=== PATIENT | male | born 1960 | race Caucasian/White ===

== ENCOUNTER 2019-04-11 20:40 | Inpatient (IN) | payer MEDICARE, OTHER ==
[2019-04-11 21:55] VITALS: BP 117/76
[2019-04-12] MEDS ORDERED: Magnesium Hydroxide (MOM) 30 mL UDC PO PRN (00:32)
[2019-04-12] MEDS ORDERED: Maalox 30 mL Cup PO PRN (00:32)
[2019-04-12 06:47] LABS: CHOLESTEROL 115 mg/dL (<200); HDL -HIGH DENSITY LIPOPROTEIN 36 mg/dL (23-92); TRIGLYCERIDES 53 mg/dL (<150)
[2019-04-12] MEDS: Multivitamin Tab PO SCH (09:23)
[2019-04-12] MEDS: Haloperidol Lactate Oral sol. 2 mg/mL Udc PO SCH (16:27)
[2019-04-13] MEDS: Multivitamin Tab PO SCH (09:06)
[2019-04-13] MEDS: Haloperidol Lactate Oral sol. 2 mg/mL Udc PO SCH ×2 (09:07→16:53)
--- NOTE | 2019-04-13 10:05 | History & Physical ---
ADMIT DATE: 04/11/2019 REASON FOR CONSULTATION: ____ medical management at [place]. The patient was admitted to inpatient unit. HISTORY OF PRESENT ILLNESS: This is an unfortunate male, currently homeless and initially admitted at [place] to [facility], the patient was transferred for continued care and treatment. The patient denies chest pain, shortness of breath. PAST MEDICAL HISTORY: As mentioned in the history present illness. PAST SURGICAL HISTORY: Denies surgeries in the past. ALLERGIES: No known drug allergies. MEDICATIONS: The patient is on multivitamins. Denies diabetes, currently now on lithium as well as Ativan. FAMILY HISTORY: Noncontributory. SOCIAL HISTORY: The patient smokes and drinks occasionally. 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 REVIEW OF SYSTEMS: GENERAL: Not complaining of any fever or chills. The patient is weak, having difficulty walking. LUNGS: Negative COPD or asthma, chronic smoker. HEART: Denies hypertension or coronary artery disease. ABDOMEN: No nausea, vomiting, or pain. GENITOURINARY: The patient denies increased frequency or dysuria. NEUROLOGIC: No headache, seizure or syncope. PSYCHIATRIC: As above. PHYSICAL EXAMINATION: VITAL SIGNS: Blood pressure 170/73, respiratory rate 18, pulse 80, temperature 97.8 Elderly male, appears older. NECK: Supple. No mass. LUNGS: Equal breath sounds, otherwise clear to auscultation. HEART: Regular rate and rhythm without appreciable murmurs. ABDOMEN: Soft, nontender. Positive bowel sounds. EXTREMITIES: Without cyanosis. Positive excoriation atrophy. NEUROLOGIC: Limited, moving all 4 extremities. Gait not seen. LABORATORY DATA: Triglycerides 53, cholesterol 115, LDL 61, HDL 36. ____ hemoglobin is 11. ASSESSMENT AND PLAN: Dehydration, malnutrition, anemia, renal insufficiency. We will provide the patient adequate nutritional support. The patient ____. The patient may ____ We will continue to follow. [facility]# [id number]
--- NOTE | 2019-04-13 11:48 | Internal Medicine Prog Note ---
Internal Medicine Subjective - Subjective Patient seen and examined:: with staff, chart reviewed Patient is:: awake, verbal, interactive, confused Per staff patient has:: no adverse event, poor appetite Internal Medicine Objective - Results Recent Labs: Laboratory Last Values Triglycerides 53 mg/dL (<150) 04/12/19 06:10 Cholesterol 115 mg/dL (<200) 04/12/19 06:10 LDL Cholesterol Direct 61 mg/dL (75-193) L 04/12/19 06:10 HDL Cholesterol 36 mg/dL (23-92) 04/12/19 06:10 - Physical Exam Vitals and I&O: Vital Signs Temp 97.2 F 04/13/19 06:34 Pulse 64 04/13/19 06:34 Resp 18 04/13/19 06:34 BP 136/77 04/13/19 06:34 Pulse Ox 97 04/13/19 06:34 Intake & Output 04/12/19 04/13/19 04/13/19 18:59 06:59 18:59 Intake Total 650 120 Balance 650 120 Intake: Oral 650 120 Other: # Voids 2 3 Active Medications: Current Medications Acetaminophen (Tylenol) 650 mg PO Q4HR PRN PRN Reason: Mild Pain / Temp above 100 Stop: 06/11/19 00:31 Al Hydrox/Mg Hydrox/Simethicone (Maalox) 30 ml PO Q4HR PRN PRN Reason: GI DISTRESS Stop: 06/11/19 00:31 Ascorbic Acid (Vitamin C) 500 mg PO DAILY CANDELARIO Stop: 06/12/19 08:59 Last Admin: 04/13/19 09:06 Dose: 500 mg Haloperidol Lactate (Haldol) 2 mg PO BID CANDELARIO; Protocol Stop: 06/11/19 16:59 Last Admin: 04/13/19 09:07 Dose: 2 mg [place] Carbonate (Eskalith) 150 mg PO DAILY CANDELARIO; Protocol Stop: 06/11/19 08:59 Last Admin: 04/13/19 09:06 Dose: 150 mg Lorazepam (Ativan) 0.5 mg PO Q4HR PRN; Protocol PRN Reason: Anxiety Stop: 05/12/19 00:49 Magnesium Hydroxide (Milk Of Magnesia) 30 ml PO HS PRN PRN Reason: Constipation Multivitamins/Vitamin C (Theragran) 1 tab PO DAILY CANDELARIO Stop: 06/11/19 08:59 Last Admin: 04/13/19 09:06 Dose: 1 tab Zolpidem Tartrate (Ambien) 5 mg PO HS PRN PRN Reason: Insomnia Stop: 06/11/19 00:49 Last Admin: 04/12/19 20:54 Dose: 5 mg General: demented HEENT: NC/AT, PERRLA, EOMI Neck: Supple, No JVD Lungs: CTAB Cardiovascular: RRR, Normal S1, Normal S2 Abdomen: soft, non-tender, positive bowel sound Extremities: excoriation Neurological: no change Internal Medicine Assmt/Plan - Assessment Assessment: ASSESSMENT AND PLAN: Dehydration, malnutrition, anemia, renal insufficiency. generalized weakness - Plan Plan: PLAN: We will provide the patient adequate nutritional support. will provide hydration, supplements, sypmtomatic care and treatment. We will continue to follow. Nutritional Asmnt/Malnutr-PDOC - Dietary Evaluation Malnutrition Findings (Please click <Entered> for more info): Nutritional Asmnt/Malnutrition Start: 04/12/19 14: 01 Text: Status: Complete Freq: Protocol: Document 04/12/19 14:02 LCHENG (Rec: 04/12/19 14:02 LCHENG [email or web address]) Nutritional Asmnt/Malnutrition Patient General Information Nutritional Screening High Risk Consult Diagnosis psychosis Pertinent Medical Hx/Surgical Hx no H&P as of this time Subjective Information Consult received for poor appetite. But MARIBEL Ruiz reported pt ate well, consumed 75% breakfast this morning. Pt requested strawberry Ensure . Current Diet Order/ Nutrition Support regular Pertinent Medications vit C, theragran Pertinent Labs 04/12 reviewed Nutritional Hx/Data Height 1.78 m Height (Calculated Centimeters) 177.8 Current Weight (lbs) 54.431 kg Weight (Calculated Kilograms) 54.4 Weight (Calculated Grams) 50099.1 [place] Body Weight 166 Body Mass Index (BMI) 17.2 Weight Status Underweight GI Symptoms GI Symptoms None Last BM not indicated Difficult in: None Skin Integrity/Comment: pressure area to reddened sacrume, abrasion to lower left extremity Current %PO Good (75-100%) Estimated Nutritional Goals BEE in Kcals: Using Current wt Calories/Kcals/Kg 27-32 Kcals Calculated 8050-2870 Protein: Using Current wt Protein g/k-1.2 Protein Calculated 55-66 Fluid: ml 1485-1760ml (1ml/kcal) Nutritional Problem 1. Problem Problem underweight Etiology possible inadequate energy intake Signs/Symptoms: BMI 17.2 Intervention/Recommendation Comments 1. Continue with regular diet as ordered. Add Ensure BID ( strawberry flavor). 2. Monitor PO intake, wt, labs and skin integrity 3. F/U as low risk in 7 days Expected Outcomes/Goals Expected Outcomes/Goals 1. PO intake to meet at least 75% of nutritional needs. 2. Wt stability, skin to remain intact, labs to approach WNL.
--- NOTE | 2019-04-13 12:04 | Psychiatric Evaluation ---
DATE OF SERVICE: 04/12/2019 HISTORY OF PRESENT ILLNESS: A 59-year-old male sent over by this clinician from [facility] on a 5150 hold for grave disability. The patient presented there catatonic, not talking, not eating, not taking medications. He did accept IV medications and was started on IV Ativan. Some of his catatonic symptoms improved, he was talking more and his p.o. intake remained very poor. He remained bizarre, psychotic appearing, ruminative and nonsensical, concerns about his ability to function at a lower level of care, now transferred to [facility] after medical clearance. PAST PSYCHIATRIC HISTORY: Likely schizophrenia or bipolar. FAMILY HISTORY: Unclear. SOCIAL HISTORY: Details unclear, but apparently he lives with family. MEDICATIONS: Noted. MENTAL STATUS EXAMINATION: Disheveled, unkempt, staring off into space at times, not really answering any questions, heavily internally preoccupied, thought blocking, unclear SI, unclear HI, unclear content of any psychotic symptoms, poor insight, poor judgment. PROVISIONAL DIAGNOSES: Schizophrenia, rule out bipolar, rule out schizoaffective. MEDICAL: Please see full H and P. ESTIMATED LENGTH OF STAY: 7-10 days. ASSESSMENT: The patient impoverished, very poor p.o. intake, psychotic appearing, minimally interactive, not stable for a lower level of care. PLAN: We will continue medications and make appropriate adjustments. TREATMENT PLAN: Includes group as well as milieu therapy. CONDITIONS FOR DISCHARGE: Improved mood, improved affect, better p.o. intake, control of any psychotic symptoms, safe discharge plan, good psychiatric followup. [facility]# [id number]
--- NOTE | 2019-04-14 00:01 | Progress Notes ---
DATE: 04/13/2019 SUBJECTIVE: The patient remains bizarre, delusional, stating the staff is either coming out or stating staff is not feeding him and that he wants to eat every day, but they are giving him food and feeding him. He does not really take much in and then is making allegations that he is not getting any food, very confused, disoriented, bizarre, collateral from father noting that apparently he was having some negative reaction to lithium in the past, details unclear. We will attempt to reach out to family to try to increase collateral. Ongoing concerns about his p.o. intake. We will continue to monitor for now, continue dosing of Haldol, stop lithium. We will be increasing the dosing of Haldol. The patient is not catatonic, but he is pretty disorganized and nonsensical. Initiate a 14-day hold for grave disability. JOB# [id number]
[2019-04-14] MEDS: Haloperidol Lactate Oral sol. 2 mg/mL Udc PO SCH ×2 (10:14→16:53)
[2019-04-14] MEDS: Multivitamin Tab PO SCH (10:16)
--- NOTE | 2019-04-14 12:36 | Internal Medicine Prog Note ---
Internal Medicine Subjective - Subjective Patient seen and examined:: with staff, chart reviewed Patient is:: awake, verbal, interactive, confused Per staff patient has:: no adverse event, poor appetite Internal Medicine Objective - Results Recent Labs: Laboratory Last Values Triglycerides 53 mg/dL (<150) 04/12/19 06:10 Cholesterol 115 mg/dL (<200) 04/12/19 06:10 LDL Cholesterol Direct 61 mg/dL (75-193) L 04/12/19 06:10 HDL Cholesterol 36 mg/dL (23-92) 04/12/19 06:10 - Physical Exam Vitals and I&O: Vital Signs Temp 97.2 F 04/14/19 06:17 Pulse 64 04/14/19 06:17 Resp 19 04/14/19 06:17 BP 126/75 04/14/19 06:17 Pulse Ox 97 04/14/19 06:17 Intake & Output 04/13/19 04/14/19 04/14/19 18:59 06:59 18:59 Intake Total 800 120 Balance 800 120 Intake: Oral 800 120 Other: # Voids 3 2 # Bowel Movements 0 Active Medications: Current Medications Acetaminophen (Tylenol) 650 mg PO Q4HR PRN PRN Reason: Mild Pain / Temp above 100 Stop: 06/11/19 00:31 Al Hydrox/Mg Hydrox/Simethicone (Maalox) 30 ml PO Q4HR PRN PRN Reason: GI DISTRESS Stop: 06/11/19 00:31 Ascorbic Acid (Vitamin C) 500 mg PO DAILY CANDELARIO Stop: 06/12/19 08:59 Last Admin: 04/14/19 10:14 Dose: 500 mg Haloperidol Lactate (Haldol) 3 mg PO BID CANDELARIO; Protocol Stop: 06/12/19 16:59 Last Admin: 04/14/19 10:14 Dose: 3 mg Lorazepam (Ativan) 0.5 mg PO Q4HR PRN; Protocol PRN Reason: Anxiety Stop: 05/12/19 00:49 Magnesium Hydroxide (Milk Of Magnesia) 30 ml PO HS PRN PRN Reason: Constipation Multivitamins/Vitamin C (Theragran) 1 tab PO DAILY CANDELARIO Stop: 06/11/19 08:59 Last Admin: 04/14/19 10:16 Dose: 1 tab Zolpidem Tartrate (Ambien) 5 mg PO HS PRN PRN Reason: Insomnia Stop: 06/11/19 00:49 Last Admin: 04/14/19 00:39 Dose: 5 mg General: demented HEENT: NC/AT, PERRLA, EOMI Neck: Supple, No JVD Lungs: CTAB Cardiovascular: RRR, Normal S1, Normal S2 Abdomen: soft, non-tender, positive bowel sound Extremities: excoriation Neurological: no change Internal Medicine Assmt/Plan - Assessment Assessment: ASSESSMENT AND PLAN: Dehydration, malnutrition, anemia, renal insufficiency. generalized weakness - Plan Plan: PLAN: We will provide the patient adequate nutritional support. will provide hydration, supplements, sypmtomatic care and treatment. We will continue to follow. Nutritional Asmnt/Malnutr-PDOC - Dietary Evaluation Malnutrition Findings (Please click <Entered> for more info): Nutritional Asmnt/Malnutrition Start: 04/12/19 14: 01 Text: Status: Complete Freq: Protocol: Document 04/12/19 14:02 [email or web address] (Rec: 04/12/19 14:02 JACQUELING [email or web address]) Nutritional Asmnt/Malnutrition Patient General Information Nutritional Screening High Risk Consult Diagnosis psychosis Pertinent Medical Hx/Surgical Hx no H&P as of this time Subjective Information Consult received for poor appetite. But MARIBEL Ruiz reported pt ate well, consumed 75% breakfast this morning. Pt requested strawberry Ensure . Current Diet Order/ Nutrition Support regular Pertinent Medications vit C, theragran Pertinent Labs 04/12 reviewed Nutritional Hx/Data Height 1.78 m Height (Calculated Centimeters) 177.8 Current Weight (lbs) 54.431 kg Weight (Calculated Kilograms) 54.4 Weight (Calculated Grams) 23297.1 [place] Body Weight 166 Body Mass Index (BMI) 17.2 Weight Status Underweight GI Symptoms GI Symptoms None Last BM not indicated Difficult in: None Skin Integrity/Comment: pressure area to reddened sacrume, abrasion to lower left extremity Current %PO Good (75-100%) Estimated Nutritional Goals BEE in Kcals: Using Current wt Calories/Kcals/Kg 27-32 Kcals Calculated 6649-8875 Protein: Using Current wt Protein g/k-1.2 Protein Calculated 55-66 Fluid: ml 1485-1760ml (1ml/kcal) Nutritional Problem 1. Problem Problem underweight Etiology possible inadequate energy intake Signs/Symptoms: BMI 17.2 Intervention/Recommendation Comments 1. Continue with regular diet as ordered. Add Ensure BID ( strawberry flavor). 2. Monitor PO intake, wt, labs and skin integrity 3. F/U as low risk in 7 days Expected Outcomes/Goals Expected Outcomes/Goals 1. PO intake to meet at least 75% of nutritional needs. 2. Wt stability, skin to remain intact, labs to approach WNL.
[2019-04-15] MEDS: Haloperidol Lactate Oral sol. 2 mg/mL Udc PO SCH ×2 (09:23→17:05)
[2019-04-15] MEDS: Multivitamin Tab PO SCH (09:23)
--- NOTE | 2019-04-15 12:06 | Progress Notes ---
DATE: Covering for Dr. Mere Carlson. Case was discussed with staff of the patient, reviewed records. The patient apparently was referred by Dr. Carlson from [facility] on a hold for gait disability. The patient presented catatonic, not talking, not eating, not taking medication with a history of schizophrenia versus bipolar unable to participate in conversation or make safe plan for self-care. The patient continues to complain of food, though he had a tray of food. When I talked to him in front of him, though he yesterday was complaining about not getting enough food. He is still confused, disoriented, and bizarre. Continues to be unpredictable, impulsive, needing redirection. He has been compliant with the medication with no side effects and no sedation, no nausea. He is on Haldol 3 mg twice a day that was increased yesterday. He was ____, was discontinued and we will continue outpatient group therapy, milieu therapy, adjust medication as needed. [facility]# [id number]
--- NOTE | 2019-04-15 19:55 | Progress Notes ---
DATE: Dr. Hart covering for Dr. Carlson. SUBJECTIVE: Chart reviewed and the patient interviewed. Also discussed the patient's condition with the staff and reviewed records and labs. The patient is still restless and he is still easily agitated. The patient also is suspicious and is still paranoid. He also needs lots of redirections. The patient also still had helped from staff for feeding him and giving him food. The patient also has been confused and disoriented and has been having a lot of problems with his hygiene. He also has a negative reaction to lithium in the past and at this time, the patient is still monitored closely and still adjusting the dose of Haldol and lithium was stopped. Thought processes are disorganized and nonsensical. ASSESSMENT: The patient is still psychotic and needs close monitoring. TREATMENT PLAN: Continue to monitor his behavior and condition closely. The patient also continued to take Haldol in a dose of 3 mg twice a day and Ativan on a p.r.n. basis. Also, continue to work on his confusion, irritability, and bizarre behavior, and continue to follow up. JOB# [id number]
--- NOTE | 2019-04-15 20:40 | Internal Medicine Prog Note ---
Internal Medicine Subjective - Subjective Patient seen and examined:: with staff, chart reviewed Patient is:: awake, verbal, interactive, confused Per staff patient has:: no adverse event, poor appetite Internal Medicine Objective - Results Recent Labs: Laboratory Last Values Triglycerides 53 mg/dL (<150) 04/12/19 06:10 Cholesterol 115 mg/dL (<200) 04/12/19 06:10 LDL Cholesterol Direct 61 mg/dL (75-193) L 04/12/19 06:10 HDL Cholesterol 36 mg/dL (23-92) 04/12/19 06:10 - Physical Exam Vitals and I&O: Vital Signs Temp 97.0 F 04/15/19 15:00 Pulse 98 04/15/19 15:00 Resp 20 04/15/19 20:00 BP 118/74 04/15/19 15:00 Pulse Ox 96 04/15/19 15:00 Intake & Output 04/15/19 04/15/19 04/16/19 06:59 18:59 06:59 Intake Total 560 950 Output Total 2 Balance 558 950 Intake: Oral 560 950 Output: Urine 2 Other: # Voids 3 4 # Bowel Movements 1 1 Active Medications: Current Medications Acetaminophen (Tylenol) 650 mg PO Q4HR PRN PRN Reason: Mild Pain / Temp above 100 Stop: 06/11/19 00:31 Al Hydrox/Mg Hydrox/Simethicone (Maalox) 30 ml PO Q4HR PRN PRN Reason: GI DISTRESS Stop: 06/11/19 00:31 Ascorbic Acid (Vitamin C) 500 mg PO DAILY CANDELARIO Stop: 06/12/19 08:59 Last Admin: 04/15/19 09:23 Dose: 500 mg Haloperidol Lactate (Haldol) 3 mg PO BID CANDELARIO; Protocol Stop: 06/12/19 16:59 Last Admin: 04/15/19 17:05 Dose: 3 mg Lorazepam (Ativan) 0.5 mg PO Q4HR PRN; Protocol PRN Reason: Anxiety Stop: 05/12/19 00:49 Last Admin: 04/14/19 16:59 Dose: 0.5 mg Magnesium Hydroxide (Milk Of Magnesia) 30 ml PO HS PRN PRN Reason: Constipation Multivitamins/Vitamin C (Theragran) 1 tab PO DAILY CANDELARIO Stop: 06/11/19 08:59 Last Admin: 04/15/19 09:23 Dose: 1 tab Zolpidem Tartrate (Ambien) 5 mg PO HS PRN PRN Reason: Insomnia Stop: 06/11/19 00:49 Last Admin: 04/15/19 01:00 Dose: 5 mg General: demented HEENT: NC/AT, PERRLA, EOMI Neck: Supple, No JVD Lungs: CTAB Cardiovascular: RRR, Normal S1, Normal S2 Abdomen: soft, non-tender, positive bowel sound Extremities: excoriation Neurological: no change Internal Medicine Assmt/Plan - Assessment Assessment: ASSESSMENT AND PLAN: Dehydration, malnutrition, anemia, renal insufficiency. generalized weakness - Plan Plan: PLAN: We will provide the patient adequate nutritional support. will provide hydration, supplements, sypmtomatic care and treatment. We will continue to follow. Nutritional Asmnt/Malnutr-PDOC - Dietary Evaluation Malnutrition Findings (Please click <Entered> for more info): Nutritional Asmnt/Malnutrition Start: 04/12/19 14: 01 Text: Status: Complete Freq: Protocol: Document 04/12/19 14:02 SAMMY (Rec: 04/12/19 14:02 [facility] [email or web address]) Nutritional Asmnt/Malnutrition Patient General Information Nutritional Screening High Risk Consult Diagnosis psychosis Pertinent Medical Hx/Surgical Hx no H&P as of this time Subjective Information Consult received for poor appetite. But MARIBEL Ruiz reported pt ate well, consumed 75% breakfast this morning. Pt requested strawberry Ensure . Current Diet Order/ Nutrition Support regular Pertinent Medications vit C, theragran Pertinent Labs 04/12 reviewed Nutritional Hx/Data Height 1.78 m Height (Calculated Centimeters) 177.8 Current Weight (lbs) 54.431 kg Weight (Calculated Kilograms) 54.4 Weight (Calculated Grams) 01848.1 [place] Body Weight 166 Body Mass Index (BMI) 17.2 Weight Status Underweight GI Symptoms GI Symptoms None Last BM not indicated Difficult in: None Skin Integrity/Comment: pressure area to reddened sacrume, abrasion to lower left extremity Current %PO Good (75-100%) Estimated Nutritional Goals BEE in Kcals: Using Current wt Calories/Kcals/Kg 27-32 Kcals Calculated 4876-9899 Protein: Using Current wt Protein g/k-1.2 Protein Calculated 55-66 Fluid: ml 1485-1760ml (1ml/kcal) Nutritional Problem 1. Problem Problem underweight Etiology possible inadequate energy intake Signs/Symptoms: BMI 17.2 Intervention/Recommendation Comments 1. Continue with regular diet as ordered. Add Ensure BID ( strawberry flavor). 2. Monitor PO intake, wt, labs and skin integrity 3. F/U as low risk in 7 days Expected Outcomes/Goals Expected Outcomes/Goals 1. PO intake to meet at least 75% of nutritional needs. 2. Wt stability, skin to remain intact, labs to approach WNL.
[2019-04-16] MEDS: Multivitamin Tab PO SCH (08:50)
[2019-04-16] MEDS: Haloperidol Lactate Oral sol. 2 mg/mL Udc PO SCH ×2 (08:50→17:14)
--- NOTE | 2019-04-16 15:59 | Internal Medicine Prog Note ---
Internal Medicine Subjective - Subjective Patient seen and examined:: with staff, chart reviewed Patient is:: awake, verbal, interactive, confused Per staff patient has:: no adverse event, poor appetite Internal Medicine Objective - Results Recent Labs: Laboratory Last Values Triglycerides 53 mg/dL (<150) 04/12/19 06:10 Cholesterol 115 mg/dL (<200) 04/12/19 06:10 LDL Cholesterol Direct 61 mg/dL (75-193) L 04/12/19 06:10 HDL Cholesterol 36 mg/dL (23-92) 04/12/19 06:10 - Physical Exam Vitals and I&O: Vital Signs Temp 98.0 F 04/16/19 14:00 Pulse 94 04/16/19 14:00 Resp 20 04/16/19 14:00 BP 112/70 04/16/19 14:00 Pulse Ox 97 04/16/19 14:00 Intake & Output 04/15/19 04/16/19 04/16/19 18:59 06:59 18:59 Intake Total 950 360 Balance 950 360 Intake: Oral 950 360 Other: # Voids 4 3 # Bowel Movements 1 1 Active Medications: Current Medications Acetaminophen (Tylenol) 650 mg PO Q4HR PRN PRN Reason: Mild Pain / Temp above 100 Stop: 06/11/19 00:31 Al Hydrox/Mg Hydrox/Simethicone (Maalox) 30 ml PO Q4HR PRN PRN Reason: GI DISTRESS Stop: 06/11/19 00:31 Ascorbic Acid (Vitamin C) 500 mg PO DAILY CANDELARIO Stop: 06/12/19 08:59 Last Admin: 04/16/19 08:50 Dose: 500 mg Haloperidol Lactate (Haldol) 5 mg PO BID CANDELARIO; Protocol Stop: 06/15/19 08:59 Last Admin: 04/16/19 08:50 Dose: 5 mg Lorazepam (Ativan) 0.5 mg PO Q4HR PRN; Protocol PRN Reason: Anxiety Stop: 05/12/19 00:49 Last Admin: 04/16/19 12:56 Dose: 0.5 mg Magnesium Hydroxide (Milk Of Magnesia) 30 ml PO HS PRN PRN Reason: Constipation Multivitamins/Vitamin C (Theragran) 1 tab PO DAILY CANDELARIO Stop: 06/11/19 08:59 Last Admin: 04/16/19 08:50 Dose: 1 tab Trazodone HCl (Desyrel) 50 mg PO HS CANDELARIO; Protocol Stop: 06/15/19 20:59 Zolpidem Tartrate (Ambien) 5 mg PO HS PRN PRN Reason: Insomnia Stop: 06/11/19 00:49 Last Admin: 04/15/19 21:24 Dose: 5 mg General: demented HEENT: NC/AT, PERRLA, EOMI Neck: Supple, No JVD Lungs: CTAB Cardiovascular: RRR, Normal S1, Normal S2 Abdomen: soft, non-tender, positive bowel sound Extremities: excoriation Neurological: no change Internal Medicine Assmt/Plan - Assessment Assessment: ASSESSMENT AND PLAN: Dehydration, malnutrition, anemia, renal insufficiency. generalized weakness - Plan Plan: PLAN: We will provide the patient adequate nutritional support. will provide hydration, supplements, sypmtomatic care and treatment. We will continue to follow. Nutritional Asmnt/Malnutr-PDOC - Dietary Evaluation Malnutrition Findings (Please click <Entered> for more info): Nutritional Asmnt/Malnutrition Start: 04/12/19 14: 01 Text: Status: Complete Freq: Protocol: Document 04/12/19 14:02 LCHENG (Rec: 04/12/19 14:02 LCHENG [email or web address]) Nutritional Asmnt/Malnutrition Patient General Information Nutritional Screening High Risk Consult Diagnosis psychosis Pertinent Medical Hx/Surgical Hx no H&P as of this time Subjective Information Consult received for poor appetite. But MARIBEL Ruiz reported pt ate well, consumed 75% breakfast this morning. Pt requested strawberry Ensure . Current Diet Order/ Nutrition Support regular Pertinent Medications vit C, theragran Pertinent Labs 04/12 reviewed Nutritional Hx/Data Height 1.78 m Height (Calculated Centimeters) 177.8 Current Weight (lbs) 54.431 kg Weight (Calculated Kilograms) 54.4 Weight (Calculated Grams) 75811.1 [place] Body Weight 166 Body Mass Index (BMI) 17.2 Weight Status Underweight GI Symptoms GI Symptoms None Last BM not indicated Difficult in: None Skin Integrity/Comment: pressure area to reddened sacrume, abrasion to lower left extremity Current %PO Good (75-100%) Estimated Nutritional Goals BEE in Kcals: Using Current wt Calories/Kcals/Kg 27-32 Kcals Calculated 4930-9986 Protein: Using Current wt Protein g/k-1.2 Protein Calculated 55-66 Fluid: ml 1485-1760ml (1ml/kcal) Nutritional Problem 1. Problem Problem underweight Etiology possible inadequate energy intake Signs/Symptoms: BMI 17.2 Intervention/Recommendation Comments 1. Continue with regular diet as ordered. Add Ensure BID ( strawberry flavor). 2. Monitor PO intake, wt, labs and skin integrity 3. F/U as low risk in 7 days Expected Outcomes/Goals Expected Outcomes/Goals 1. PO intake to meet at least 75% of nutritional needs. 2. Wt stability, skin to remain intact, labs to approach WNL.
[2019-04-17] MEDS: Multivitamin Tab PO SCH (08:46)
[2019-04-17] MEDS: Haloperidol Lactate Oral sol. 2 mg/mL Udc PO SCH ×2 (08:46→17:06)
--- NOTE | 2019-04-17 09:54 | Progress Notes ---
DATE: 04/16/2019 SUBJECTIVE: Chart reviewed and the patient interviewed. Also discussed the patient's condition with the staff and reviewed records and labs. The patient seems to be more agitated and irritable this morning and the patient was walking in the hallway taking his shirt off and walking topless. He also had difficult time following staff directions and he did not want to put his shirt on. Also, the patient has been easily agitated and did not sleep much. Also, he has been eating a lot according to staff and has been in more angry and irritable mood as well as hyperverbal. Also, he has been talking making no sense. ASSESSMENT: The patient is still psychotic and agitated. TREATMENT PLAN: Continue to monitor his behavior and condition closely. Also, we will increase Haldol to 5 mg twice a day and we will add trazodone 100 mg at bedtime and we will continue to follow up closely. JOB# [id number]
--- NOTE | 2019-04-17 13:16 | Internal Medicine Prog Note ---
Internal Medicine Subjective - Subjective Patient seen and examined:: with staff, chart reviewed Patient is:: awake, verbal, interactive, confused Per staff patient has:: no adverse event, poor appetite Internal Medicine Objective - Results Recent Labs: Laboratory Last Values Triglycerides 53 mg/dL (<150) 04/12/19 06:10 Cholesterol 115 mg/dL (<200) 04/12/19 06:10 LDL Cholesterol Direct 61 mg/dL (75-193) L 04/12/19 06:10 HDL Cholesterol 36 mg/dL (23-92) 04/12/19 06:10 - Physical Exam Vitals and I&O: Vital Signs Temp 98.4 F 04/17/19 06:03 Pulse 71 04/17/19 06:03 Resp 20 04/17/19 06:03 BP 123/71 04/17/19 06:03 Pulse Ox 98 04/17/19 06:03 Intake & Output 04/16/19 04/17/19 04/17/19 18:59 06:59 18:59 Intake Total 120 Balance 120 Intake: Oral 120 Other: # Voids 3 # Bowel Movements 0 Active Medications: Current Medications Acetaminophen (Tylenol) 650 mg PO Q4HR PRN PRN Reason: Mild Pain / Temp above 100 Stop: 06/11/19 00:31 Al Hydrox/Mg Hydrox/Simethicone (Maalox) 30 ml PO Q4HR PRN PRN Reason: GI DISTRESS Stop: 06/11/19 00:31 Ascorbic Acid (Vitamin C) 500 mg PO DAILY CANDELARIO Stop: 06/12/19 08:59 Last Admin: 04/17/19 08:46 Dose: 500 mg Haloperidol Lactate (Haldol) 5 mg PO BID CANDELARIO; Protocol Stop: 06/15/19 08:59 Last Admin: 04/17/19 08:46 Dose: 5 mg Lorazepam (Ativan) 0.5 mg PO Q4HR PRN; Protocol PRN Reason: Anxiety Stop: 05/12/19 00:49 Last Admin: 04/16/19 17:15 Dose: 0.5 mg Magnesium Hydroxide (Milk Of Magnesia) 30 ml PO HS PRN PRN Reason: Constipation Multivitamins/Vitamin C (Theragran) 1 tab PO DAILY CANDELARIO Stop: 06/11/19 08:59 Last Admin: 04/17/19 08:46 Dose: 1 tab Trazodone HCl (Desyrel) 50 mg PO HS CANDELARIO; Protocol Stop: 06/15/19 20:59 Last Admin: 04/16/19 21:03 Dose: 50 mg Zolpidem Tartrate (Ambien) 5 mg PO HS PRN PRN Reason: Insomnia Stop: 06/11/19 00:49 Last Admin: 04/16/19 21:03 Dose: 5 mg General: demented HEENT: NC/AT, PERRLA, EOMI Neck: Supple, No JVD Lungs: CTAB Cardiovascular: RRR, Normal S1, Normal S2 Abdomen: soft, non-tender, positive bowel sound Extremities: excoriation Neurological: no change Internal Medicine Assmt/Plan - Assessment Assessment: ASSESSMENT AND PLAN: Dehydration, malnutrition, anemia, renal insufficiency. generalized weakness - Plan Plan: PLAN: We will provide the patient adequate nutritional support. will provide hydration, supplements, sypmtomatic care and treatment. We will continue to follow. Nutritional Asmnt/Malnutr-PDOC - Dietary Evaluation Malnutrition Findings (Please click <Entered> for more info): Nutritional Asmnt/Malnutrition Start: 04/12/19 14: 01 Text: Status: Complete Freq: Protocol: Document 04/12/19 14:02 LCHENG (Rec: 04/12/19 14:02 LCHENG [email or web address]) Nutritional Asmnt/Malnutrition Patient General Information Nutritional Screening High Risk Consult Diagnosis psychosis Pertinent Medical Hx/Surgical Hx no H&P as of this time Subjective Information Consult received for poor appetite. But MARIBEL Ruiz reported pt ate well, consumed 75% breakfast this morning. Pt requested strawberry Ensure . Current Diet Order/ Nutrition Support regular Pertinent Medications vit C, theragran Pertinent Labs 04/12 reviewed Nutritional Hx/Data Height 1.78 m Height (Calculated Centimeters) 177.8 Current Weight (lbs) 54.431 kg Weight (Calculated Kilograms) 54.4 Weight (Calculated Grams) 91875.1 [place] Body Weight 166 Body Mass Index (BMI) 17.2 Weight Status Underweight GI Symptoms GI Symptoms None Last BM not indicated Difficult in: None Skin Integrity/Comment: pressure area to reddened sacrume, abrasion to lower left extremity Current %PO Good (75-100%) Estimated Nutritional Goals BEE in Kcals: Using Current wt Calories/Kcals/Kg 27-32 Kcals Calculated 2735-7171 Protein: Using Current wt Protein g/k-1.2 Protein Calculated 55-66 Fluid: ml 1485-1760ml (1ml/kcal) Nutritional Problem 1. Problem Problem underweight Etiology possible inadequate energy intake Signs/Symptoms: BMI 17.2 Intervention/Recommendation Comments 1. Continue with regular diet as ordered. Add Ensure BID ( strawberry flavor). 2. Monitor PO intake, wt, labs and skin integrity 3. F/U as low risk in 7 days Expected Outcomes/Goals Expected Outcomes/Goals 1. PO intake to meet at least 75% of nutritional needs. 2. Wt stability, skin to remain intact, labs to approach WNL.
--- NOTE | 2019-04-17 22:48 | Progress Notes ---
DATE: PSYCHIATRIC PROGRESS NOTE SUBJECTIVE: Chart reviewed and the patient interviewed. Also discussed the patient's condition with the staff and reviewed records and labs. The patient is still agitated and is still awake most of the night, but seems to be slightly calmer and is slightly easier to redirect him. The patient also slept slightly better than the night before since started on trazodone. The patient also still has disorganized thoughts and hyperverbal at times. Otherwise, the patient is compliant with taking medications and cooperative with his treatment. ASSESSMENT: The patient is still agitated and psychotic. TREATMENT PLAN: Continue to monitor behavior and condition closely. Also, continue adjusting psychotropic medications. JOB# [id number]
[2019-04-18] MEDS: Multivitamin Tab PO SCH ×2 (08:37→08:44)
[2019-04-18] MEDS: Haloperidol Lactate Oral sol. 2 mg/mL Udc PO SCH ×2 (08:37→16:52)
--- NOTE | 2019-04-18 13:10 | Internal Medicine Prog Note ---
Internal Medicine Subjective - Subjective Patient seen and examined:: with staff, chart reviewed Patient is:: awake, verbal, interactive, confused Per staff patient has:: no adverse event, poor appetite Internal Medicine Objective - Results Recent Labs: Laboratory Last Values Triglycerides 53 mg/dL (<150) 04/12/19 06:10 Cholesterol 115 mg/dL (<200) 04/12/19 06:10 LDL Cholesterol Direct 61 mg/dL (75-193) L 04/12/19 06:10 HDL Cholesterol 36 mg/dL (23-92) 04/12/19 06:10 - Physical Exam Vitals and I&O: Vital Signs Temp 98.1 F 04/18/19 06:11 Pulse 77 04/18/19 06:11 Resp 18 04/18/19 06:11 BP 136/80 04/18/19 06:11 Pulse Ox 99 04/18/19 06:11 Intake & Output 04/17/19 04/18/19 04/18/19 18:59 06:59 18:59 Intake Total 950 240 Balance 950 240 Intake: Oral 950 240 Other: # Voids 3 3 # Bowel Movements 0 0 Active Medications: Current Medications Acetaminophen (Tylenol) 650 mg PO Q4HR PRN PRN Reason: Mild Pain / Temp above 100 Stop: 06/11/19 00:31 Al Hydrox/Mg Hydrox/Simethicone (Maalox) 30 ml PO Q4HR PRN PRN Reason: GI DISTRESS Stop: 06/11/19 00:31 Ascorbic Acid (Vitamin C) 500 mg PO DAILY CANDELARIO Stop: 06/12/19 08:59 Last Admin: 04/18/19 08:44 Dose: Not Given Haloperidol Lactate (Haldol) 5 mg PO BID CANDELARIO; Protocol Stop: 06/15/19 08:59 Last Admin: 04/18/19 08:37 Dose: 5 mg Lorazepam (Ativan) 0.5 mg PO Q4HR PRN; Protocol PRN Reason: Anxiety Stop: 05/12/19 00:49 Last Admin: 04/16/19 17:15 Dose: 0.5 mg Magnesium Hydroxide (Milk Of Magnesia) 30 ml PO HS PRN PRN Reason: Constipation Multivitamins/Vitamin C (Theragran) 1 tab PO DAILY CANDELARIO Stop: 06/11/19 08:59 Last Admin: 04/18/19 08:44 Dose: Not Given Trazodone HCl (Desyrel) 50 mg PO HS CANDELARIO; Protocol Stop: 06/15/19 20:59 Last Admin: 04/17/19 21:16 Dose: 50 mg Zolpidem Tartrate (Ambien) 5 mg PO HS PRN PRN Reason: Insomnia Stop: 06/11/19 00:49 Last Admin: 04/17/19 21:16 Dose: 5 mg General: demented HEENT: NC/AT, PERRLA, EOMI Neck: Supple, No JVD Lungs: CTAB Cardiovascular: RRR, Normal S1, Normal S2 Abdomen: soft, non-tender, positive bowel sound Extremities: excoriation Neurological: no change Internal Medicine Assmt/Plan - Assessment Assessment: ASSESSMENT AND PLAN: Dehydration, malnutrition, anemia, renal insufficiency. generalized weakness - Plan Plan: PLAN: We will provide the patient adequate nutritional support. will provide hydration, supplements, sypmtomatic care and treatment. We will continue to follow. Nutritional Asmnt/Malnutr-PDOC - Dietary Evaluation Malnutrition Findings (Please click <Entered> for more info): Nutritional Asmnt/Malnutrition Start: 04/12/19 14: 01 Text: Status: Complete Freq: Protocol: Document 04/12/19 14:02 LCHENG (Rec: 04/12/19 14:02 LCHENG [email or web address]) Nutritional Asmnt/Malnutrition Patient General Information Nutritional Screening High Risk Consult Diagnosis psychosis Pertinent Medical Hx/Surgical Hx no H&P as of this time Subjective Information Consult received for poor appetite. But MARIBEL Ruiz reported pt ate well, consumed 75% breakfast this morning. Pt requested strawberry Ensure . Current Diet Order/ Nutrition Support regular Pertinent Medications vit C, theragran Pertinent Labs 04/12 reviewed Nutritional Hx/Data Height 1.78 m Height (Calculated Centimeters) 177.8 Current Weight (lbs) 54.431 kg Weight (Calculated Kilograms) 54.4 Weight (Calculated Grams) 98730.1 [place] Body Weight 166 Body Mass Index (BMI) 17.2 Weight Status Underweight GI Symptoms GI Symptoms None Last BM not indicated Difficult in: None Skin Integrity/Comment: pressure area to reddened sacrume, abrasion to lower left extremity Current %PO Good (75-100%) Estimated Nutritional Goals BEE in Kcals: Using Current wt Calories/Kcals/Kg 27-32 Kcals Calculated 2696-5685 Protein: Using Current wt Protein g/k-1.2 Protein Calculated 55-66 Fluid: ml 1485-1760ml (1ml/kcal) Nutritional Problem 1. Problem Problem underweight Etiology possible inadequate energy intake Signs/Symptoms: BMI 17.2 Intervention/Recommendation Comments 1. Continue with regular diet as ordered. Add Ensure BID ( strawberry flavor). 2. Monitor PO intake, wt, labs and skin integrity 3. F/U as low risk in 7 days Expected Outcomes/Goals Expected Outcomes/Goals 1. PO intake to meet at least 75% of nutritional needs. 2. Wt stability, skin to remain intact, labs to approach WNL.
--- NOTE | 2019-04-19 02:32 | Progress Notes ---
DATE: 04/18/2019 FOLLOWUP PROGRESS NOTE PROGRESS ON THE UNIT: Case discussed with staff of the patient, reviewed records. The patient continues to be unpredictable, impulsive, internally preoccupied, unable to express himself clearly. He continues to need redirection. He is sleeping better and eating better. He continues to have episodes of agitation and psychosis. No side effects to the medication, no sedation, no nausea, no extrapyramidal symptoms. We will continue to work with the patient in group therapy and milieu therapy, adjust the medications as needed. JOB# [id number]
[2019-04-19] MEDS: Multivitamin Tab PO SCH (09:48)
[2019-04-19] MEDS: Haloperidol Lactate Oral sol. 2 mg/mL Udc PO SCH ×2 (09:48→17:21)
--- NOTE | 2019-04-19 12:28 | Internal Medicine Prog Note ---
Internal Medicine Subjective - Subjective Patient seen and examined:: with staff, chart reviewed Patient is:: awake, verbal, interactive, confused Per staff patient has:: no adverse event, poor appetite Internal Medicine Objective - Results Recent Labs: Laboratory Last Values Triglycerides 53 mg/dL (<150) 04/12/19 06:10 Cholesterol 115 mg/dL (<200) 04/12/19 06:10 LDL Cholesterol Direct 61 mg/dL (75-193) L 04/12/19 06:10 HDL Cholesterol 36 mg/dL (23-92) 04/12/19 06:10 - Physical Exam Vitals and I&O: Vital Signs Temp 97.9 F 04/19/19 04:59 Pulse 77 04/19/19 04:59 Resp 19 04/19/19 04:59 BP 140/90 04/19/19 04:59 Pulse Ox 98 04/19/19 04:59 Intake & Output 04/18/19 04/19/19 04/19/19 18:59 06:59 18:59 Intake Total 480 Balance 480 Intake: Oral 480 Other: # Voids 2 Active Medications: Current Medications Acetaminophen (Tylenol) 650 mg PO Q4HR PRN PRN Reason: Mild Pain / Temp above 100 Stop: 06/11/19 00:31 Al Hydrox/Mg Hydrox/Simethicone (Maalox) 30 ml PO Q4HR PRN PRN Reason: GI DISTRESS Stop: 06/11/19 00:31 Ascorbic Acid (Vitamin C) 500 mg PO DAILY CANDELARIO Stop: 06/12/19 08:59 Last Admin: 04/19/19 09:47 Dose: 500 mg Haloperidol Lactate (Haldol) 5 mg PO BID CANDELARIO; Protocol Stop: 06/15/19 08:59 Last Admin: 04/19/19 09:48 Dose: 5 mg Lorazepam (Ativan) 0.5 mg PO Q4HR PRN; Protocol PRN Reason: Anxiety Stop: 05/12/19 00:49 Last Admin: 04/16/19 17:15 Dose: 0.5 mg Magnesium Hydroxide (Milk Of Magnesia) 30 ml PO HS PRN PRN Reason: Constipation Multivitamins/Vitamin C (Theragran) 1 tab PO DAILY CANDELARIO Stop: 06/11/19 08:59 Last Admin: 04/19/19 09:48 Dose: 1 tab Trazodone HCl (Desyrel) 50 mg PO HS CANDELARIO; Protocol Stop: 06/15/19 20:59 Last Admin: 04/18/19 20:37 Dose: 50 mg Zolpidem Tartrate (Ambien) 5 mg PO HS PRN PRN Reason: Insomnia Stop: 06/11/19 00:49 Last Admin: 04/17/19 21:16 Dose: 5 mg General: demented HEENT: NC/AT, PERRLA, EOMI Neck: Supple, No JVD Lungs: CTAB Cardiovascular: RRR, Normal S1, Normal S2 Abdomen: soft, non-tender, positive bowel sound Extremities: excoriation Neurological: no change Internal Medicine Assmt/Plan - Assessment Assessment: ASSESSMENT AND PLAN: Dehydration, malnutrition, anemia, renal insufficiency. generalized weakness - Plan Plan: PLAN: We will provide the patient adequate nutritional support. will provide hydration, supplements, sypmtomatic care and treatment. We will continue to follow. Nutritional Asmnt/Malnutr-PDOC - Dietary Evaluation Malnutrition Findings (Please click <Entered> for more info): Nutritional Asmnt/Malnutrition Start: 04/12/19 14: 01 Text: Status: Complete Freq: Protocol: Document 04/12/19 14:02 LCHENG (Rec: 04/12/19 14:02 LCHENG [email or web address]) Nutritional Asmnt/Malnutrition Patient General Information Nutritional Screening High Risk Consult Diagnosis psychosis Pertinent Medical Hx/Surgical Hx no H&P as of this time Subjective Information Consult received for poor appetite. But MARIBEL Ruiz reported pt ate well, consumed 75% breakfast this morning. Pt requested strawberry Ensure . Current Diet Order/ Nutrition Support regular Pertinent Medications vit C, theragran Pertinent Labs 04/12 reviewed Nutritional Hx/Data Height 1.78 m Height (Calculated Centimeters) 177.8 Current Weight (lbs) 54.431 kg Weight (Calculated Kilograms) 54.4 Weight (Calculated Grams) 80687.1 [place] Body Weight 166 Body Mass Index (BMI) 17.2 Weight Status Underweight GI Symptoms GI Symptoms None Last BM not indicated Difficult in: None Skin Integrity/Comment: pressure area to reddened sacrume, abrasion to lower left extremity Current %PO Good (75-100%) Estimated Nutritional Goals BEE in Kcals: Using Current wt Calories/Kcals/Kg 27-32 Kcals Calculated 4181-9292 Protein: Using Current wt Protein g/k-1.2 Protein Calculated 55-66 Fluid: ml 1485-1760ml (1ml/kcal) Nutritional Problem 1. Problem Problem underweight Etiology possible inadequate energy intake Signs/Symptoms: BMI 17.2 Intervention/Recommendation Comments 1. Continue with regular diet as ordered. Add Ensure BID ( strawberry flavor). 2. Monitor PO intake, wt, labs and skin integrity 3. F/U as low risk in 7 days Expected Outcomes/Goals Expected Outcomes/Goals 1. PO intake to meet at least 75% of nutritional needs. 2. Wt stability, skin to remain intact, labs to approach WNL.
--- NOTE | 2019-04-20 00:12 | Progress Notes ---
DATE: 04/19/[address] Carlson. Case was discussed with staff of the patient, reviewed records. The patient continues to isolate himself, does not say much. He is feeding himself. He has complained about not having food. He is sleeping better, eating better. No suicidal ideation, no homicidal ideation, no paranoia, no side effects. We will continue to work with the patient in group therapy, milieu therapy, and adjust the medication as needed. JOB# [id number]
[2019-04-20] MEDS: Haloperidol Lactate Oral sol. 2 mg/mL Udc PO SCH ×2 (09:57→18:14)
[2019-04-20] MEDS: Multivitamin Tab PO SCH (09:58)
--- NOTE | 2019-04-20 12:37 | Internal Medicine Prog Note ---
Internal Medicine Subjective - Subjective Patient seen and examined:: with staff, chart reviewed Patient is:: awake, verbal, interactive, confused Per staff patient has:: no adverse event, poor appetite Internal Medicine Objective - Results Recent Labs: Laboratory Last Values Triglycerides 53 mg/dL (<150) 04/12/19 06:10 Cholesterol 115 mg/dL (<200) 04/12/19 06:10 LDL Cholesterol Direct 61 mg/dL (75-193) L 04/12/19 06:10 HDL Cholesterol 36 mg/dL (23-92) 04/12/19 06:10 - Physical Exam Vitals and I&O: Vital Signs Temp 98.6 F 04/19/19 14:00 Pulse 69 04/19/19 14:00 Resp 19 04/19/19 14:00 BP 134/82 04/19/19 14:00 Pulse Ox 100 04/19/19 14:00 Intake & Output 04/19/19 04/20/19 04/20/19 18:59 06:59 18:59 Intake Total 1600 Balance 1600 Intake: Oral 1600 Other: # Voids 4 # Bowel Movements 0 Active Medications: Current Medications Acetaminophen (Tylenol) 650 mg PO Q4HR PRN PRN Reason: Mild Pain / Temp above 100 Stop: 06/11/19 00:31 Al Hydrox/Mg Hydrox/Simethicone (Maalox) 30 ml PO Q4HR PRN PRN Reason: GI DISTRESS Stop: 06/11/19 00:31 Ascorbic Acid (Vitamin C) 500 mg PO DAILY CANDELARIO Stop: 06/12/19 08:59 Last Admin: 04/20/19 09:58 Dose: 500 mg Haloperidol Lactate (Haldol) 5 mg PO BID CANDELARIO; Protocol Stop: 06/15/19 08:59 Last Admin: 04/20/19 09:57 Dose: 5 mg Lorazepam (Ativan) 0.5 mg PO Q4HR PRN; Protocol PRN Reason: Anxiety Stop: 05/12/19 00:49 Last Admin: 04/16/19 17:15 Dose: 0.5 mg Magnesium Hydroxide (Milk Of Magnesia) 30 ml PO HS PRN PRN Reason: Constipation Multivitamins/Vitamin C (Theragran) 1 tab PO DAILY CANDELARIO Stop: 06/11/19 08:59 Last Admin: 04/20/19 09:58 Dose: 1 tab Trazodone HCl (Desyrel) 50 mg PO HS CANDELARIO; Protocol Stop: 06/15/19 20:59 Last Admin: 04/19/19 20:12 Dose: 50 mg Zolpidem Tartrate (Ambien) 5 mg PO HS PRN PRN Reason: Insomnia Stop: 06/11/19 00:49 Last Admin: 04/17/19 21:16 Dose: 5 mg General: demented HEENT: NC/AT, PERRLA, EOMI Neck: Supple, No JVD Lungs: CTAB Cardiovascular: RRR, Normal S1, Normal S2 Abdomen: soft, non-tender, positive bowel sound Extremities: excoriation Neurological: no change Internal Medicine Assmt/Plan - Assessment Assessment: ASSESSMENT AND PLAN: Dehydration, malnutrition, anemia, renal insufficiency. generalized weakness - Plan Plan: PLAN: We will provide the patient adequate nutritional support. will provide hydration, supplements, sypmtomatic care and treatment. We will continue to follow. Nutritional Asmnt/Malnutr-PDOC - Dietary Evaluation Malnutrition Findings (Please click <Entered> for more info): Nutritional Asmnt/Malnutrition Start: 04/12/19 14: 01 Text: Status: Complete Freq: Protocol: Document 04/12/19 14:02 LCHENG (Rec: 04/12/19 14:02 LCHENG [email or web address]) Nutritional Asmnt/Malnutrition Patient General Information Nutritional Screening High Risk Consult Diagnosis psychosis Pertinent Medical Hx/Surgical Hx no H&P as of this time Subjective Information Consult received for poor appetite. But MARIBEL Ruiz reported pt ate well, consumed 75% breakfast this morning. Pt requested strawberry Ensure . Current Diet Order/ Nutrition Support regular Pertinent Medications vit C, theragran Pertinent Labs 04/12 reviewed Nutritional Hx/Data Height 1.78 m Height (Calculated Centimeters) 177.8 Current Weight (lbs) 54.431 kg Weight (Calculated Kilograms) 54.4 Weight (Calculated Grams) 60858.1 [place] Body Weight 166 Body Mass Index (BMI) 17.2 Weight Status Underweight GI Symptoms GI Symptoms None Last BM not indicated Difficult in: None Skin Integrity/Comment: pressure area to reddened sacrume, abrasion to lower left extremity Current %PO Good (75-100%) Estimated Nutritional Goals BEE in Kcals: Using Current wt Calories/Kcals/Kg 27-32 Kcals Calculated 1321-4420 Protein: Using Current wt Protein g/k-1.2 Protein Calculated 55-66 Fluid: ml 1485-1760ml (1ml/kcal) Nutritional Problem 1. Problem Problem underweight Etiology possible inadequate energy intake Signs/Symptoms: BMI 17.2 Intervention/Recommendation Comments 1. Continue with regular diet as ordered. Add Ensure BID ( strawberry flavor). 2. Monitor PO intake, wt, labs and skin integrity 3. F/U as low risk in 7 days Expected Outcomes/Goals Expected Outcomes/Goals 1. PO intake to meet at least 75% of nutritional needs. 2. Wt stability, skin to remain intact, labs to approach WNL.
--- NOTE | 2019-04-21 01:53 | Progress Notes ---
DATE: 04/20/2019 Case was discussed with staff of the patient, reviewed records. The patient continues to doing more or less the same. He stays in bed. Unable to make safe plan for self-care, unable to participate in meaningful conversation. He continues to have multiple complaints, yet bizarre complaints. He is compliant with the medication with no side effects, no sedation, no nausea and no extrapyramidal symptoms. We will continue to work with the patient in group therapy, milieu therapy, and adjust the medications as needed. JOB# [id number]
[2019-04-21] MEDS: Multivitamin Tab PO SCH (08:58)
[2019-04-21] MEDS: Haloperidol Lactate Oral sol. 2 mg/mL Udc PO SCH (08:59)
--- NOTE | 2019-04-21 12:43 | Internal Medicine Prog Note ---
Internal Medicine Subjective - Subjective Patient seen and examined:: with staff, chart reviewed Patient is:: awake, verbal, interactive, confused Per staff patient has:: no adverse event, poor appetite Internal Medicine Objective - Results Recent Labs: Laboratory Last Values Triglycerides 53 mg/dL (<150) 04/12/19 06:10 Cholesterol 115 mg/dL (<200) 04/12/19 06:10 LDL Cholesterol Direct 61 mg/dL (75-193) L 04/12/19 06:10 HDL Cholesterol 36 mg/dL (23-92) 04/12/19 06:10 - Physical Exam Vitals and I&O: Vital Signs Temp 97.6 F 04/21/19 06:40 Pulse 68 04/21/19 06:40 Resp 19 04/21/19 08:00 BP 118/68 04/21/19 06:40 Pulse Ox 96 04/21/19 06:40 Intake & Output 04/20/19 04/21/19 04/21/19 18:59 06:59 18:59 Intake Total 1300 360 Balance 1300 360 Intake: Oral 1300 360 Other: # Voids 4 2 # Bowel Movements 0 0 Active Medications: Current Medications Acetaminophen (Tylenol) 650 mg PO Q4HR PRN PRN Reason: Mild Pain / Temp above 100 Stop: 06/11/19 00:31 Al Hydrox/Mg Hydrox/Simethicone (Maalox) 30 ml PO Q4HR PRN PRN Reason: GI DISTRESS Stop: 06/11/19 00:31 Ascorbic Acid (Vitamin C) 500 mg PO DAILY CANDELARIO Stop: 06/12/19 08:59 Last Admin: 04/21/19 08:58 Dose: 500 mg Haloperidol Lactate (Haldol Concentrate 10mg/5ml Susp) 5 mg PO BID CANDELARIO; Protocol Stop: 06/15/19 08:59 Lorazepam (Ativan) 0.5 mg PO Q4HR PRN; Protocol PRN Reason: Anxiety Stop: 05/12/19 00:49 Last Admin: 04/16/19 17:15 Dose: 0.5 mg Magnesium Hydroxide (Milk Of Magnesia) 30 ml PO HS PRN PRN Reason: Constipation Multivitamins/Vitamin C (Theragran) 1 tab PO DAILY CANDELARIO Stop: 06/11/19 08:59 Last Admin: 04/21/19 08:58 Dose: 1 tab Trazodone HCl (Desyrel) 50 mg PO HS CANDELARIO; Protocol Stop: 06/15/19 20:59 Last Admin: 04/20/19 21:12 Dose: 50 mg Zolpidem Tartrate (Ambien) 5 mg PO HS PRN PRN Reason: Insomnia Stop: 06/11/19 00:49 Last Admin: 04/17/19 21:16 Dose: 5 mg General: demented HEENT: NC/AT, PERRLA, EOMI Neck: Supple, No JVD Lungs: CTAB Cardiovascular: RRR, Normal S1, Normal S2 Abdomen: soft, non-tender, positive bowel sound Extremities: excoriation Neurological: no change Internal Medicine Assmt/Plan - Assessment Assessment: ASSESSMENT AND PLAN: Dehydration, malnutrition, anemia, renal insufficiency. generalized weakness - Plan Plan: PLAN: We will provide the patient adequate nutritional support. will provide hydration, supplements, sypmtomatic care and treatment. We will continue to follow. Nutritional Asmnt/Malnutr-PDOC - Dietary Evaluation Malnutrition Findings (Please click <Entered> for more info): Nutritional Asmnt/Malnutrition Start: 04/12/19 14: 01 Text: Status: Complete Freq: Protocol: Document 04/12/19 14:02 LCHENG (Rec: 04/12/19 14:02 LCHENG [email or web address]) Nutritional Asmnt/Malnutrition Patient General Information Nutritional Screening High Risk Consult Diagnosis psychosis Pertinent Medical Hx/Surgical Hx no H&P as of this time Subjective Information Consult received for poor appetite. But MARIBEL Ruiz reported pt ate well, consumed 75% breakfast this morning. Pt requested strawberry Ensure . Current Diet Order/ Nutrition Support regular Pertinent Medications vit C, theragran Pertinent Labs 04/12 reviewed Nutritional Hx/Data Height 1.78 m Height (Calculated Centimeters) 177.8 Current Weight (lbs) 54.431 kg Weight (Calculated Kilograms) 54.4 Weight (Calculated Grams) 22396.1 [place] Body Weight 166 Body Mass Index (BMI) 17.2 Weight Status Underweight GI Symptoms GI Symptoms None Last BM not indicated Difficult in: None Skin Integrity/Comment: pressure area to reddened sacrume, abrasion to lower left extremity Current %PO Good (75-100%) Estimated Nutritional Goals BEE in Kcals: Using Current wt Calories/Kcals/Kg 27-32 Kcals Calculated 0713-8684 Protein: Using Current wt Protein g/k-1.2 Protein Calculated 55-66 Fluid: ml 1485-1760ml (1ml/kcal) Nutritional Problem 1. Problem Problem underweight Etiology possible inadequate energy intake Signs/Symptoms: BMI 17.2 Intervention/Recommendation Comments 1. Continue with regular diet as ordered. Add Ensure BID ( strawberry flavor). 2. Monitor PO intake, wt, labs and skin integrity 3. F/U as low risk in 7 days Expected Outcomes/Goals Expected Outcomes/Goals 1. PO intake to meet at least 75% of nutritional needs. 2. Wt stability, skin to remain intact, labs to approach WNL.
[2019-04-21] MEDS: Haldol Oral Sol.(concentrate) 10 mg/5 mL Udc PO SCH (17:17)
--- NOTE | 2019-04-22 01:13 | Progress Notes ---
DATE: 04/21/2019 SUBJECTIVE: Case was discussed with staff of the patient, reviewed records. The patient continues to stay in bed, isolating himself. Continues to be confused. He is able to talk, but he really does not say much. He is sleeping well. He can feed himself. No side effects with the medication, no sedation, no nausea. He is on Haldol 5 mg twice a day. No side effects of the medication, no sedation, no nausea. We will continue to work with the patient in group therapy, milieu therapy, adjusting medication as needed. JOB# [id number]
[2019-04-22] MEDS: Haldol Oral Sol.(concentrate) 10 mg/5 mL Udc PO SCH ×2 (08:34→18:00)
[2019-04-22] MEDS: Multivitamin Tab PO SCH (08:35)
--- NOTE | 2019-04-22 11:16 | Internal Medicine Prog Note ---
Internal Medicine Subjective - Subjective Patient seen and examined:: with staff, chart reviewed Patient is:: awake, verbal, interactive, confused Per staff patient has:: no adverse event, poor appetite Internal Medicine Objective - Results Recent Labs: Laboratory Last Values Triglycerides 53 mg/dL (<150) 04/12/19 06:10 Cholesterol 115 mg/dL (<200) 04/12/19 06:10 LDL Cholesterol Direct 61 mg/dL (75-193) L 04/12/19 06:10 HDL Cholesterol 36 mg/dL (23-92) 04/12/19 06:10 - Physical Exam Vitals and I&O: Vital Signs Temp 98.5 F 04/22/19 06:00 Pulse 68 04/22/19 06:00 Resp 18 04/22/19 06:00 BP 122/75 04/22/19 06:00 Pulse Ox 95 04/22/19 06:00 Intake & Output 04/21/19 04/22/19 04/22/19 18:59 06:59 18:59 Intake Total 850 605 Balance 850 605 Intake: Oral 850 605 Other: # Voids 3 3 # Bowel Movements 1 Stool Characteristics Soft Formed Active Medications: Current Medications Acetaminophen (Tylenol) 650 mg PO Q4HR PRN PRN Reason: Mild Pain / Temp above 100 Stop: 06/11/19 00:31 Al Hydrox/Mg Hydrox/Simethicone (Maalox) 30 ml PO Q4HR PRN PRN Reason: GI DISTRESS Stop: 06/11/19 00:31 Ascorbic Acid (Vitamin C) 500 mg PO DAILY CANDELARIO Stop: 06/12/19 08:59 Last Admin: 04/22/19 08:35 Dose: 500 mg Haloperidol Lactate (Haldol Concentrate 10mg/5ml Susp) 5 mg PO BID CANDELARIO; Protocol Stop: 06/15/19 16:59 Last Admin: 04/22/19 08:34 Dose: 5 mg Lorazepam (Ativan) 0.5 mg PO Q4HR PRN; Protocol PRN Reason: Anxiety Stop: 05/12/19 00:49 Last Admin: 04/16/19 17:15 Dose: 0.5 mg Magnesium Hydroxide (Milk Of Magnesia) 30 ml PO HS PRN PRN Reason: Constipation Multivitamins/Vitamin C (Theragran) 1 tab PO DAILY CANDELARIO Stop: 06/11/19 08:59 Last Admin: 04/22/19 08:35 Dose: 1 tab Trazodone HCl (Desyrel) 50 mg PO HS CANDELARIO; Protocol Stop: 06/15/19 20:59 Last Admin: 04/21/19 21:50 Dose: 50 mg Zolpidem Tartrate (Ambien) 5 mg PO HS PRN PRN Reason: Insomnia Stop: 06/11/19 00:49 Last Admin: 04/17/19 21:16 Dose: 5 mg General: demented HEENT: NC/AT, PERRLA, EOMI Neck: Supple, No JVD Lungs: CTAB Cardiovascular: RRR, Normal S1, Normal S2 Abdomen: soft, non-tender, positive bowel sound Extremities: excoriation Neurological: no change Internal Medicine Assmt/Plan - Assessment Assessment: ASSESSMENT AND PLAN: Dehydration, malnutrition, anemia, renal insufficiency. generalized weakness - Plan Plan: PLAN: We will provide the patient adequate nutritional support. will provide hydration, supplements, sypmtomatic care and treatment. We will continue to follow. Nutritional Asmnt/Malnutr-PDOC - Dietary Evaluation Malnutrition Findings (Please click <Entered> for more info): Nutritional Asmnt/Malnutrition Start: 04/12/19 14: 01 Text: Status: Complete Freq: Protocol: Document 04/12/19 14:02 LCHENG (Rec: 04/12/19 14:02 LCHENG [email or web address]) Nutritional Asmnt/Malnutrition Patient General Information Nutritional Screening High Risk Consult Diagnosis psychosis Pertinent Medical Hx/Surgical Hx no H&P as of this time Subjective Information Consult received for poor appetite. But MARIBEL Ruiz reported pt ate well, consumed 75% breakfast this morning. Pt requested strawberry Ensure . Current Diet Order/ Nutrition Support regular Pertinent Medications vit C, theragran Pertinent Labs 04/12 reviewed Nutritional Hx/Data Height 1.78 m Height (Calculated Centimeters) 177.8 Current Weight (lbs) 54.431 kg Weight (Calculated Kilograms) 54.4 Weight (Calculated Grams) 54617.1 [place] Body Weight 166 Body Mass Index (BMI) 17.2 Weight Status Underweight GI Symptoms GI Symptoms None Last BM not indicated Difficult in: None Skin Integrity/Comment: pressure area to reddened sacrume, abrasion to lower left extremity Current %PO Good (75-100%) Estimated Nutritional Goals BEE in Kcals: Using Current wt Calories/Kcals/Kg 27-32 Kcals Calculated 9228-0260 Protein: Using Current wt Protein g/k-1.2 Protein Calculated 55-66 Fluid: ml 1485-1760ml (1ml/kcal) Nutritional Problem 1. Problem Problem underweight Etiology possible inadequate energy intake Signs/Symptoms: BMI 17.2 Intervention/Recommendation Comments 1. Continue with regular diet as ordered. Add Ensure BID ( strawberry flavor). 2. Monitor PO intake, wt, labs and skin integrity 3. F/U as low risk in 7 days Expected Outcomes/Goals Expected Outcomes/Goals 1. PO intake to meet at least 75% of nutritional needs. 2. Wt stability, skin to remain intact, labs to approach WNL.
--- NOTE | 2019-04-23 00:09 | Progress Notes ---
DATE: 04/22/2019 SUBJECTIVE: Case was discussed with staff of the patient, reviewed records. The patient continues to isolate himself. Continues to be confused, continues to awake, verbal. Unable to make safe plan for self-care, unpredictable, impulsive, needing redirection, very poor insight. No side effects with the medication, no sedation, no nausea. We will continue outpatient group therapy, milieu therapy, adjust medication as needed. [facility]# [id number]
[2019-04-23] MEDS: Multivitamin Tab PO SCH (09:22)
[2019-04-23] MEDS: Haldol Oral Sol.(concentrate) 10 mg/5 mL Udc PO SCH ×2 (09:23→17:41)
--- NOTE | 2019-04-23 12:11 | Internal Medicine Prog Note ---
Internal Medicine Subjective - Subjective Patient seen and examined:: with staff, chart reviewed Patient is:: awake, verbal, interactive, confused Per staff patient has:: no adverse event, poor appetite Internal Medicine Objective - Results Recent Labs: Laboratory Last Values Triglycerides 53 mg/dL (<150) 04/12/19 06:10 Cholesterol 115 mg/dL (<200) 04/12/19 06:10 LDL Cholesterol Direct 61 mg/dL (75-193) L 04/12/19 06:10 HDL Cholesterol 36 mg/dL (23-92) 04/12/19 06:10 - Physical Exam Vitals and I&O: Vital Signs Temp 98.3 F 04/23/19 06:22 Pulse 64 04/23/19 06:22 Resp 18 04/23/19 06:22 BP 117/72 04/23/19 06:22 Pulse Ox 97 04/23/19 06:22 Intake & Output 04/22/19 04/23/19 04/23/19 18:59 06:59 18:59 Intake Total 240 Balance 240 Intake: Oral 240 Other: # Voids 2 3 # Bowel Movements 1 Stool Characteristics Soft Soft Formed Formed Active Medications: Current Medications Acetaminophen (Tylenol) 650 mg PO Q4HR PRN PRN Reason: Mild Pain / Temp above 100 Stop: 06/11/19 00:31 Al Hydrox/Mg Hydrox/Simethicone (Maalox) 30 ml PO Q4HR PRN PRN Reason: GI DISTRESS Stop: 06/11/19 00:31 Ascorbic Acid (Vitamin C) 500 mg PO DAILY CANDELARIO Stop: 06/12/19 08:59 Last Admin: 04/23/19 09:22 Dose: 500 mg Haloperidol Lactate (Haldol Concentrate 10mg/5ml Susp) 5 mg PO BID CANDELARIO; Protocol Stop: 06/15/19 16:59 Last Admin: 04/23/19 09:23 Dose: 5 mg Lorazepam (Ativan) 0.5 mg PO Q4HR PRN; Protocol PRN Reason: Anxiety Stop: 05/12/19 00:49 Last Admin: 04/16/19 17:15 Dose: 0.5 mg Magnesium Hydroxide (Milk Of Magnesia) 30 ml PO HS PRN PRN Reason: Constipation Multivitamins/Vitamin C (Theragran) 1 tab PO DAILY CANDELARIO Stop: 06/11/19 08:59 Last Admin: 04/23/19 09:22 Dose: 1 tab Trazodone HCl (Desyrel) 50 mg PO HS CANDELARIO; Protocol Stop: 06/15/19 20:59 Last Admin: 04/22/19 22:00 Dose: 50 mg Zolpidem Tartrate (Ambien) 5 mg PO HS PRN PRN Reason: Insomnia Stop: 06/11/19 00:49 Last Admin: 04/17/19 21:16 Dose: 5 mg General: demented HEENT: NC/AT, PERRLA, EOMI Neck: Supple, No JVD Lungs: CTAB Cardiovascular: RRR, Normal S1, Normal S2 Abdomen: soft, non-tender, positive bowel sound Extremities: excoriation Neurological: no change Internal Medicine Assmt/Plan - Assessment Assessment: ASSESSMENT AND PLAN: Dehydration, malnutrition, anemia, renal insufficiency. generalized weakness - Plan Plan: PLAN: We will provide the patient adequate nutritional support. will provide hydration, supplements, sypmtomatic care and treatment. We will continue to follow. Nutritional Asmnt/Malnutr-PDOC - Dietary Evaluation Malnutrition Findings (Please click <Entered> for more info): Nutritional Asmnt/Malnutrition Start: 04/12/19 14: 01 Text: Status: Complete Freq: Protocol: Document 04/12/19 14:02 LCHENG (Rec: 04/12/19 14:02 [email or web address]) Nutritional Asmnt/Malnutrition Patient General Information Nutritional Screening High Risk Consult Diagnosis psychosis Pertinent Medical Hx/Surgical Hx no H&P as of this time Subjective Information Consult received for poor appetite. But MARIBEL Ruiz reported pt ate well, consumed 75% breakfast this morning. Pt requested strawberry Ensure . Current Diet Order/ Nutrition Support regular Pertinent Medications vit C, theragran Pertinent Labs 04/12 reviewed Nutritional Hx/Data Height 1.78 m Height (Calculated Centimeters) 177.8 Current Weight (lbs) 54.431 kg Weight (Calculated Kilograms) 54.4 Weight (Calculated Grams) 48951.1 [place] Body Weight 166 Body Mass Index (BMI) 17.2 Weight Status Underweight GI Symptoms GI Symptoms None Last BM not indicated Difficult in: None Skin Integrity/Comment: pressure area to reddened sacrume, abrasion to lower left extremity Current %PO Good (75-100%) Estimated Nutritional Goals BEE in Kcals: Using Current wt Calories/Kcals/Kg 27-32 Kcals Calculated 3323-9701 Protein: Using Current wt Protein g/k-1.2 Protein Calculated 55-66 Fluid: ml 1485-1760ml (1ml/kcal) Nutritional Problem 1. Problem Problem underweight Etiology possible inadequate energy intake Signs/Symptoms: BMI 17.2 Intervention/Recommendation Comments 1. Continue with regular diet as ordered. Add Ensure BID ( strawberry flavor). 2. Monitor PO intake, wt, labs and skin integrity 3. F/U as low risk in 7 days Expected Outcomes/Goals Expected Outcomes/Goals 1. PO intake to meet at least 75% of nutritional needs. 2. Wt stability, skin to remain intact, labs to approach WNL.
--- NOTE | 2019-04-24 00:21 | Progress Notes ---
DATE: 04/23/2019 Case was discussed with staff of the patient, reviewed records. The patient continues ____, continues to have poor insight. Unable to make safe plan for self-care, unpredictable, impulsive, needing redirection. He is compliant with the medication with no side effects, no sedation, no nausea, no extrapyramidal symptoms. We will continue to work with the patient in group therapy, milieu therapy, and adjust the medications as needed. JOB# [id number]
[2019-04-24] MEDS: Haldol Oral Sol.(concentrate) 10 mg/5 mL Udc PO SCH ×2 (08:06→16:02)
[2019-04-24] MEDS: Multivitamin Tab PO SCH (08:07)
--- NOTE | 2019-04-24 12:45 | Internal Medicine Prog Note ---
Internal Medicine Subjective - Subjective Patient seen and examined:: with staff, chart reviewed Patient is:: awake, verbal, interactive, confused Per staff patient has:: no adverse event, poor appetite Internal Medicine Objective - Results Recent Labs: Laboratory Last Values Triglycerides 53 mg/dL (<150) 04/12/19 06:10 Cholesterol 115 mg/dL (<200) 04/12/19 06:10 LDL Cholesterol Direct 61 mg/dL (75-193) L 04/12/19 06:10 HDL Cholesterol 36 mg/dL (23-92) 04/12/19 06:10 - Physical Exam Vitals and I&O: Vital Signs Temp 97.4 F 04/24/19 06:27 Pulse 65 04/24/19 06:27 Resp 18 04/24/19 06:27 BP 106/67 04/24/19 06:27 Pulse Ox 97 04/24/19 06:27 Intake & Output 04/23/19 04/24/19 04/24/19 18:59 06:59 18:59 Intake Total 480 120 Output Total 600 Balance -120 120 Intake: Oral 480 120 Output: Urine 600 Other: # Voids 3 # Bowel Movements 0 Stool Characteristics Soft Soft Formed Formed Active Medications: Current Medications Acetaminophen (Tylenol) 650 mg PO Q4HR PRN PRN Reason: Mild Pain / Temp above 100 Stop: 06/11/19 00:31 Al Hydrox/Mg Hydrox/Simethicone (Maalox) 30 ml PO Q4HR PRN PRN Reason: GI DISTRESS Stop: 06/11/19 00:31 Ascorbic Acid (Vitamin C) 500 mg PO DAILY CANDELARIO Stop: 06/12/19 08:59 Last Admin: 04/24/19 08:07 Dose: 500 mg Haloperidol Lactate (Haldol Concentrate 10mg/5ml Susp) 5 mg PO BID CANDELARIO; Protocol Stop: 06/15/19 16:59 Last Admin: 04/24/19 08:06 Dose: 5 mg Lorazepam (Ativan) 0.5 mg PO Q4HR PRN; Protocol PRN Reason: Anxiety Stop: 05/12/19 00:49 Last Admin: 04/16/19 17:15 Dose: 0.5 mg Magnesium Hydroxide (Milk Of Magnesia) 30 ml PO HS PRN PRN Reason: Constipation Multivitamins/Vitamin C (Theragran) 1 tab PO DAILY CANDELARIO Stop: 06/11/19 08:59 Last Admin: 04/24/19 08:07 Dose: 1 tab Trazodone HCl (Desyrel) 50 mg PO HS CANDELARIO; Protocol Stop: 06/15/19 20:59 Last Admin: 04/23/19 20:42 Dose: 50 mg Zolpidem Tartrate (Ambien) 5 mg PO HS PRN PRN Reason: Insomnia Stop: 06/11/19 00:49 Last Admin: 04/17/19 21:16 Dose: 5 mg General: demented HEENT: NC/AT, PERRLA, EOMI Neck: Supple, No JVD Lungs: CTAB Cardiovascular: RRR, Normal S1, Normal S2 Abdomen: soft, non-tender, positive bowel sound Extremities: excoriation Neurological: no change Internal Medicine Assmt/Plan - Assessment Assessment: ASSESSMENT AND PLAN: Dehydration, malnutrition, anemia, renal insufficiency. generalized weakness - Plan Plan: PLAN: We will provide the patient adequate nutritional support. will provide hydration, supplements, sypmtomatic care and treatment. We will continue to follow. Nutritional Asmnt/Malnutr-PDOC - Dietary Evaluation Malnutrition Findings (Please click <Entered> for more info): Nutritional Asmnt/Malnutrition Start: 04/12/19 14: 01 Text: Status: Complete Freq: Protocol: Document 04/12/19 14:02 LCHENG (Rec: 04/12/19 14:02 LCHENG [email or web address]) Nutritional Asmnt/Malnutrition Patient General Information Nutritional Screening High Risk Consult Diagnosis psychosis Pertinent Medical Hx/Surgical Hx no H&P as of this time Subjective Information Consult received for poor appetite. But MARIBEL Ruiz reported pt ate well, consumed 75% breakfast this morning. Pt requested strawberry Ensure . Current Diet Order/ Nutrition Support regular Pertinent Medications vit C, theragran Pertinent Labs 04/12 reviewed Nutritional Hx/Data Height 1.78 m Height (Calculated Centimeters) 177.8 Current Weight (lbs) 54.431 kg Weight (Calculated Kilograms) 54.4 Weight (Calculated Grams) 22258.1 [place] Body Weight 166 Body Mass Index (BMI) 17.2 Weight Status Underweight GI Symptoms GI Symptoms None Last BM not indicated Difficult in: None Skin Integrity/Comment: pressure area to reddened sacrume, abrasion to lower left extremity Current %PO Good (75-100%) Estimated Nutritional Goals BEE in Kcals: Using Current wt Calories/Kcals/Kg 27-32 Kcals Calculated 8475-4989 Protein: Using Current wt Protein g/k-1.2 Protein Calculated 55-66 Fluid: ml 1485-1760ml (1ml/kcal) Nutritional Problem 1. Problem Problem underweight Etiology possible inadequate energy intake Signs/Symptoms: BMI 17.2 Intervention/Recommendation Comments 1. Continue with regular diet as ordered. Add Ensure BID ( strawberry flavor). 2. Monitor PO intake, wt, labs and skin integrity 3. F/U as low risk in 7 days Expected Outcomes/Goals Expected Outcomes/Goals 1. PO intake to meet at least 75% of nutritional needs. 2. Wt stability, skin to remain intact, labs to approach WNL.
--- NOTE | 2019-04-25 03:44 | Progress Notes ---
DATE: 04/24/2019 SUBJECTIVE: The patient is currently in the hospital. Had been catatonic, not talking, not eating at [facility]. Still noted to be pretty bizarre on exam, rambling, confused, talking nonsense. Poor insight, unable to verbalize any sort of plan for self-care. It is unclear if he is currently approaching his baseline. director outpatient services note he is living with family but they cannot manage him, he needs SNF placement. We will contact social service director to see where the patient is able to go. The patient apparently had been on dosing of Risperdal in the past. PLAN: We will continue to monitor. We will consider changing Haldol to dosing of Risperdal. We will continue to monitor. JOB# [id number]
[2019-04-25] MEDS: Multivitamin Tab PO SCH (08:08)
--- NOTE | 2019-04-25 12:30 | Internal Medicine Prog Note ---
Internal Medicine Subjective - Subjective Patient seen and examined:: with staff, chart reviewed Patient is:: awake, verbal, interactive, confused Per staff patient has:: no adverse event, poor appetite Internal Medicine Objective - Results Recent Labs: Laboratory Last Values Triglycerides 53 mg/dL (<150) 04/12/19 06:10 Cholesterol 115 mg/dL (<200) 04/12/19 06:10 LDL Cholesterol Direct 61 mg/dL (75-193) L 04/12/19 06:10 HDL Cholesterol 36 mg/dL (23-92) 04/12/19 06:10 - Physical Exam Vitals and I&O: Vital Signs Temp 97.6 F 04/25/19 06:00 Pulse 76 04/25/19 06:00 Resp 20 04/25/19 06:00 BP 112/81 04/25/19 06:00 Pulse Ox 98 04/25/19 06:00 Intake & Output 04/24/19 04/25/19 04/25/19 18:59 06:59 18:59 Intake Total 1200 240 Balance 1200 240 Intake: Oral 1200 240 Other: # Voids 4 2 Active Medications: Current Medications Acetaminophen (Tylenol) 650 mg PO Q4HR PRN PRN Reason: Mild Pain / Temp above 100 Stop: 06/11/19 00:31 Al Hydrox/Mg Hydrox/Simethicone (Maalox) 30 ml PO Q4HR PRN PRN Reason: GI DISTRESS Stop: 06/11/19 00:31 Ascorbic Acid (Vitamin C) 500 mg PO DAILY CANDELARIO Stop: 06/12/19 08:59 Last Admin: 04/25/19 08:07 Dose: 500 mg Lorazepam (Ativan) 0.5 mg PO Q4HR PRN; Protocol PRN Reason: Anxiety Stop: 05/12/19 00:49 Last Admin: 04/25/19 08:08 Dose: 0.5 mg Magnesium Hydroxide (Milk Of Magnesia) 30 ml PO HS PRN PRN Reason: Constipation Multivitamins/Vitamin C (Theragran) 1 tab PO DAILY CANDELARIO Stop: 06/11/19 08:59 Last Admin: 04/25/19 08:08 Dose: 1 tab Risperidone (Risperdal) 1 mg PO DAILY CANDELARIO; Protocol Stop: 06/24/19 08:59 Last Admin: 04/25/19 08:08 Dose: 1 mg Trazodone HCl (Desyrel) 50 mg PO HS CANDELARIO; Protocol Stop: 06/15/19 20:59 Last Admin: 04/24/19 21:04 Dose: 50 mg Zolpidem Tartrate (Ambien) 5 mg PO HS PRN PRN Reason: Insomnia Stop: 06/11/19 00:49 Last Admin: 04/17/19 21:16 Dose: 5 mg General: demented HEENT: NC/AT, PERRLA, EOMI Neck: Supple, No JVD Lungs: CTAB Cardiovascular: RRR, Normal S1, Normal S2 Abdomen: soft, non-tender, positive bowel sound Extremities: excoriation Neurological: no change Internal Medicine Assmt/Plan - Assessment Assessment: ASSESSMENT AND PLAN: Dehydration, malnutrition, anemia, renal insufficiency. generalized weakness - Plan Plan: PLAN: We will provide the patient adequate nutritional support. will provide hydration, supplements, sypmtomatic care and treatment. We will continue to follow. Nutritional Asmnt/Malnutr-PDOC - Dietary Evaluation Malnutrition Findings (Please click <Entered> for more info): Nutritional Asmnt/Malnutrition Start: 04/12/19 14: 01 Text: Status: Complete Freq: Protocol: Document 04/12/19 14:02 LCHENG (Rec: 04/12/19 14:02 LCHENG [email or web address]) Nutritional Asmnt/Malnutrition Patient General Information Nutritional Screening High Risk Consult Diagnosis psychosis Pertinent Medical Hx/Surgical Hx no H&P as of this time Subjective Information Consult received for poor appetite. But MARIBEL Ruiz reported pt ate well, consumed 75% breakfast this morning. Pt requested strawberry Ensure . Current Diet Order/ Nutrition Support regular Pertinent Medications vit C, theragran Pertinent Labs 04/12 reviewed Nutritional Hx/Data Height 1.78 m Height (Calculated Centimeters) 177.8 Current Weight (lbs) 54.431 kg Weight (Calculated Kilograms) 54.4 Weight (Calculated Grams) 96593.1 [place] Body Weight 166 Body Mass Index (BMI) 17.2 Weight Status Underweight GI Symptoms GI Symptoms None Last BM not indicated Difficult in: None Skin Integrity/Comment: pressure area to reddened sacrume, abrasion to lower left extremity Current %PO Good (75-100%) Estimated Nutritional Goals BEE in Kcals: Using Current wt Calories/Kcals/Kg 27-32 Kcals Calculated 8134-3257 Protein: Using Current wt Protein g/k-1.2 Protein Calculated 55-66 Fluid: ml 1485-1760ml (1ml/kcal) Nutritional Problem 1. Problem Problem underweight Etiology possible inadequate energy intake Signs/Symptoms: BMI 17.2 Intervention/Recommendation Comments 1. Continue with regular diet as ordered. Add Ensure BID ( strawberry flavor). 2. Monitor PO intake, wt, labs and skin integrity 3. F/U as low risk in 7 days Expected Outcomes/Goals Expected Outcomes/Goals 1. PO intake to meet at least 75% of nutritional needs. 2. Wt stability, skin to remain intact, labs to approach WNL.
--- NOTE | 2019-04-25 22:15 | Progress Notes ---
DATE: 04/25/2019 SUBJECTIVE: The patient is still bizarre, making some bizarre statements, is nonsensical on exam. Apparently per collateral, he has done fairly well with Risperdal in the past, so I am increasing dosages of Risperdal. The patient is still convinced that he is not getting anything to eat, but he is eating every night, still convinced that he needs more food, this seems to be one of his symptoms. Still symptomatic, keeping to himself, unable to be cared for at a lower level of care given the severity of his symptoms. PLAN: We will continue to monitor, increase dosing of Risperdal today. [facility]# [id number]
[2019-04-26] MEDS: Multivitamin Tab PO SCH (09:03)
--- NOTE | 2019-04-26 12:40 | Internal Medicine Prog Note ---
Internal Medicine Subjective - Subjective Patient seen and examined:: with staff, chart reviewed Patient is:: awake, verbal, interactive, confused Per staff patient has:: no adverse event, poor appetite Internal Medicine Objective - Results Recent Labs: Laboratory Last Values Triglycerides 53 mg/dL (<150) 04/12/19 06:10 Cholesterol 115 mg/dL (<200) 04/12/19 06:10 LDL Cholesterol Direct 61 mg/dL (75-193) L 04/12/19 06:10 HDL Cholesterol 36 mg/dL (23-92) 04/12/19 06:10 - Physical Exam Vitals and I&O: Vital Signs Temp 98.1 F 04/26/19 06:33 Pulse 78 04/26/19 06:33 Resp 19 04/26/19 06:33 BP 110/85 04/26/19 06:33 Pulse Ox 100 04/26/19 06:33 Intake & Output 04/25/19 04/26/19 04/26/19 18:59 06:59 18:59 Intake Total 950 120 Balance 950 120 Intake: Oral 950 120 Other: # Voids 4 3 # Bowel Movements 0 0 Stool Characteristics Soft Soft Formed Formed Active Medications: Current Medications Acetaminophen (Tylenol) 650 mg PO Q4HR PRN PRN Reason: Mild Pain / Temp above 100 Stop: 06/11/19 00:31 Al Hydrox/Mg Hydrox/Simethicone (Maalox) 30 ml PO Q4HR PRN PRN Reason: GI DISTRESS Stop: 06/11/19 00:31 Ascorbic Acid (Vitamin C) 500 mg PO DAILY CANDELARIO Stop: 06/12/19 08:59 Last Admin: 04/26/19 09:03 Dose: 500 mg Lorazepam (Ativan) 0.5 mg PO Q4HR PRN; Protocol PRN Reason: Anxiety Stop: 05/12/19 00:49 Last Admin: 04/25/19 08:08 Dose: 0.5 mg Magnesium Hydroxide (Milk Of Magnesia) 30 ml PO HS PRN PRN Reason: Constipation Multivitamins/Vitamin C (Theragran) 1 tab PO DAILY CANDELARIO Stop: 06/11/19 08:59 Last Admin: 04/26/19 09:03 Dose: 1 tab Risperidone (Risperdal) 0.5 mg PO HS CANDELARIO; Protocol Stop: 06/24/19 20:59 Last Admin: 04/25/19 20:29 Dose: 0.5 mg Risperidone 1 mg/ Risperidone (0.25 mg) 1.25 mg PO DAILY CANDELARIO Stop: 06/26/19 08:59 Trazodone HCl (Desyrel) 50 mg PO HS CANDELARIO; Protocol Stop: 06/15/19 20:59 Last Admin: 04/25/19 20:29 Dose: 50 mg Zolpidem Tartrate (Ambien) 5 mg PO HS PRN PRN Reason: Insomnia Stop: 06/11/19 00:49 Last Admin: 04/17/19 21:16 Dose: 5 mg General: demented HEENT: NC/AT, PERRLA, EOMI Neck: Supple, No JVD Lungs: CTAB Cardiovascular: RRR, Normal S1, Normal S2 Abdomen: soft, non-tender, positive bowel sound Extremities: excoriation Neurological: no change Internal Medicine Assmt/Plan - Assessment Assessment: ASSESSMENT AND PLAN: Dehydration, malnutrition, anemia, renal insufficiency. generalized weakness - Plan Plan: PLAN: We will provide the patient adequate nutritional support. will provide hydration, supplements, sypmtomatic care and treatment. We will continue to follow. Nutritional Asmnt/Malnutr-PDOC - Dietary Evaluation Malnutrition Findings (Please click <Entered> for more info): Nutritional Asmnt/Malnutrition Start: 04/12/19 14: 01 Text: Status: Complete Freq: Protocol: Document 04/12/19 14:02 LCHENG (Rec: 04/12/19 14:02 LCHENG [email or web address]) Nutritional Asmnt/Malnutrition Patient General Information Nutritional Screening High Risk Consult Diagnosis psychosis Pertinent Medical Hx/Surgical Hx no H&P as of this time Subjective Information Consult received for poor appetite. But MARIBEL Ruiz reported pt ate well, consumed 75% breakfast this morning. Pt requested strawberry Ensure . Current Diet Order/ Nutrition Support regular Pertinent Medications vit C, theragran Pertinent Labs 04/12 reviewed Nutritional Hx/Data Height 1.78 m Height (Calculated Centimeters) 177.8 Current Weight (lbs) 54.431 kg Weight (Calculated Kilograms) 54.4 Weight (Calculated Grams) 66331.1 [place] Body Weight 166 Body Mass Index (BMI) 17.2 Weight Status Underweight GI Symptoms GI Symptoms None Last BM not indicated Difficult in: None Skin Integrity/Comment: pressure area to reddened sacrume, abrasion to lower left extremity Current %PO Good (75-100%) Estimated Nutritional Goals BEE in Kcals: Using Current wt Calories/Kcals/Kg 27-32 Kcals Calculated 4990-1681 Protein: Using Current wt Protein g/k-1.2 Protein Calculated 55-66 Fluid: ml 1485-1760ml (1ml/kcal) Nutritional Problem 1. Problem Problem underweight Etiology possible inadequate energy intake Signs/Symptoms: BMI 17.2 Intervention/Recommendation Comments 1. Continue with regular diet as ordered. Add Ensure BID ( strawberry flavor). 2. Monitor PO intake, wt, labs and skin integrity 3. F/U as low risk in 7 days Expected Outcomes/Goals Expected Outcomes/Goals 1. PO intake to meet at least 75% of nutritional needs. 2. Wt stability, skin to remain intact, labs to approach WNL.
--- NOTE | 2019-04-27 06:02 | Progress Notes ---
DATE: 04/26/2019 SUBJECTIVE: The patient in the hospital, very confused, still believing that people are not feeding him,____ making some odd comments, bizarre, internally preoccupied, disorganized. Currently on dosing of Risperdal. Vitals were reviewed. No side effects. No EPS. No oversedation. Pulse also reviewed. Fair sleep, needing prompting for ADLs. ASSESSMENT: Ongoing psychotic symptoms, bizarre ideations. PLAN: We will continue to monitor. I will be continuing to increase the dose of the medication with increased dose of Risperdal today. JOB# [id number] XIN
[2019-04-27] MEDS: Multivitamin Tab PO SCH (09:06)
--- NOTE | 2019-04-27 12:31 | Internal Medicine Prog Note ---
Internal Medicine Subjective - Subjective Patient seen and examined:: with staff, chart reviewed Patient is:: awake, verbal, interactive, confused Per staff patient has:: no adverse event, poor appetite Internal Medicine Objective - Results Recent Labs: Laboratory Last Values Triglycerides 53 mg/dL (<150) 04/12/19 06:10 Cholesterol 115 mg/dL (<200) 04/12/19 06:10 LDL Cholesterol Direct 61 mg/dL (75-193) L 04/12/19 06:10 HDL Cholesterol 36 mg/dL (23-92) 04/12/19 06:10 - Physical Exam Vitals and I&O: Vital Signs Temp 97.4 F 04/27/19 06:34 Pulse 80 04/27/19 06:34 Resp 18 04/27/19 06:34 BP 122/75 04/27/19 06:34 Pulse Ox 97 04/27/19 06:34 Intake & Output 04/26/19 04/27/19 04/27/19 18:59 06:59 18:59 Intake Total 120 Balance 120 Intake: Oral 120 Other: # Voids 2 3 # Bowel Movements 0 Stool Characteristics Soft Soft Soft Formed Formed Formed Active Medications: Current Medications Acetaminophen (Tylenol) 650 mg PO Q4HR PRN PRN Reason: Mild Pain / Temp above 100 Stop: 06/11/19 00:31 Al Hydrox/Mg Hydrox/Simethicone (Maalox) 30 ml PO Q4HR PRN PRN Reason: GI DISTRESS Stop: 06/11/19 00:31 Ascorbic Acid (Vitamin C) 500 mg PO DAILY CANDELARIO Stop: 06/12/19 08:59 Last Admin: 04/27/19 09:06 Dose: 500 mg Lorazepam (Ativan) 0.5 mg PO Q4HR PRN; Protocol PRN Reason: Anxiety Stop: 05/12/19 00:49 Last Admin: 04/25/19 08:08 Dose: 0.5 mg Magnesium Hydroxide (Milk Of Magnesia) 30 ml PO HS PRN PRN Reason: Constipation Multivitamins/Vitamin C (Theragran) 1 tab PO DAILY CANDELARIO Stop: 06/11/19 08:59 Last Admin: 04/27/19 09:06 Dose: 1 tab Risperidone (Risperdal) 0.5 mg PO HS CANDELARIO; Protocol Stop: 06/24/19 20:59 Last Admin: 04/26/19 21:09 Dose: 0.5 mg Risperidone 1 mg/ Risperidone (0.25 mg) 1.25 mg PO DAILY CANDELARIO Stop: 06/26/19 08:59 Last Admin: 04/27/19 09:06 Dose: 1.25 mg Trazodone HCl (Desyrel) 50 mg PO HS CANDELARIO; Protocol Stop: 06/15/19 20:59 Last Admin: 04/26/19 21:09 Dose: 50 mg Zolpidem Tartrate (Ambien) 5 mg PO HS PRN PRN Reason: Insomnia Stop: 06/11/19 00:49 Last Admin: 04/17/19 21:16 Dose: 5 mg General: demented HEENT: NC/AT, PERRLA, EOMI Neck: Supple, No JVD Lungs: CTAB Cardiovascular: RRR, Normal S1, Normal S2 Abdomen: soft, non-tender, positive bowel sound Extremities: excoriation Neurological: no change Internal Medicine Assmt/Plan - Assessment Assessment: ASSESSMENT AND PLAN: Dehydration, malnutrition, anemia, renal insufficiency. generalized weakness - Plan Plan: PLAN: We will provide the patient adequate nutritional support. will provide hydration, supplements, sypmtomatic care and treatment. We will continue to follow. Nutritional Asmnt/Malnutr-PDOC - Dietary Evaluation Malnutrition Findings (Please click <Entered> for more info): Nutritional Asmnt/Malnutrition Start: 04/12/19 14: 01 Text: Status: Complete Freq: Protocol: Document 04/12/19 14:02 LCHENG (Rec: 04/12/19 14:02 LCHENG [email or web address]) Nutritional Asmnt/Malnutrition Patient General Information Nutritional Screening High Risk Consult Diagnosis psychosis Pertinent Medical Hx/Surgical Hx no H&P as of this time Subjective Information Consult received for poor appetite. But MARIBEL Ruiz reported pt ate well, consumed 75% breakfast this morning. Pt requested strawberry Ensure . Current Diet Order/ Nutrition Support regular Pertinent Medications vit C, theragran Pertinent Labs 04/12 reviewed Nutritional Hx/Data Height 1.78 m Height (Calculated Centimeters) 177.8 Current Weight (lbs) 54.431 kg Weight (Calculated Kilograms) 54.4 Weight (Calculated Grams) 26405.1 [place] Body Weight 166 Body Mass Index (BMI) 17.2 Weight Status Underweight GI Symptoms GI Symptoms None Last BM not indicated Difficult in: None Skin Integrity/Comment: pressure area to reddened sacrume, abrasion to lower left extremity Current %PO Good (75-100%) Estimated Nutritional Goals BEE in Kcals: Using Current wt Calories/Kcals/Kg 27-32 Kcals Calculated 6925-6784 Protein: Using Current wt Protein g/k-1.2 Protein Calculated 55-66 Fluid: ml 1485-1760ml (1ml/kcal) Nutritional Problem 1. Problem Problem underweight Etiology possible inadequate energy intake Signs/Symptoms: BMI 17.2 Intervention/Recommendation Comments 1. Continue with regular diet as ordered. Add Ensure BID ( strawberry flavor). 2. Monitor PO intake, wt, labs and skin integrity 3. F/U as low risk in 7 days Expected Outcomes/Goals Expected Outcomes/Goals 1. PO intake to meet at least 75% of nutritional needs. 2. Wt stability, skin to remain intact, labs to approach WNL.
[2019-04-28] MEDS: Multivitamin Tab PO SCH (08:45)
--- NOTE | 2019-04-28 12:25 | Internal Medicine Prog Note ---
Internal Medicine Subjective - Subjective Patient seen and examined:: with staff, chart reviewed Patient is:: awake, verbal, interactive, confused Per staff patient has:: no adverse event, poor appetite Internal Medicine Objective - Results Recent Labs: Laboratory Last Values Triglycerides 53 mg/dL (<150) 04/12/19 06:10 Cholesterol 115 mg/dL (<200) 04/12/19 06:10 LDL Cholesterol Direct 61 mg/dL (75-193) L 04/12/19 06:10 HDL Cholesterol 36 mg/dL (23-92) 04/12/19 06:10 - Physical Exam Vitals and I&O: Vital Signs Temp 97.1 F 04/28/19 06:16 Pulse 95 04/28/19 06:16 Resp 19 04/28/19 06:16 BP 113/79 04/28/19 06:16 Pulse Ox 98 04/28/19 06:16 Intake & Output 04/27/19 04/28/19 04/28/19 18:59 06:59 18:59 Intake Total 120 Balance 120 Intake: Oral 120 Other: # Voids 2 2 # Bowel Movements 0 1 Stool Characteristics Soft Soft Soft Formed Formed Formed Active Medications: Current Medications Acetaminophen (Tylenol) 650 mg PO Q4HR PRN PRN Reason: Mild Pain / Temp above 100 Stop: 06/11/19 00:31 Al Hydrox/Mg Hydrox/Simethicone (Maalox) 30 ml PO Q4HR PRN PRN Reason: GI DISTRESS Stop: 06/11/19 00:31 Ascorbic Acid (Vitamin C) 500 mg PO DAILY CANDELARIO Stop: 06/12/19 08:59 Last Admin: 04/28/19 08:45 Dose: 500 mg Lorazepam (Ativan) 0.5 mg PO Q4HR PRN; Protocol PRN Reason: Anxiety Stop: 05/12/19 00:49 Last Admin: 04/25/19 08:08 Dose: 0.5 mg Magnesium Hydroxide (Milk Of Magnesia) 30 ml PO HS PRN PRN Reason: Constipation Multivitamins/Vitamin C (Theragran) 1 tab PO DAILY CANDELARIO Stop: 06/11/19 08:59 Last Admin: 04/28/19 08:45 Dose: 1 tab Risperidone (Risperdal) 0.5 mg PO HS CANDELARIO; Protocol Stop: 06/24/19 20:59 Last Admin: 04/27/19 20:53 Dose: 0.5 mg Risperidone 1 mg/ Risperidone (0.25 mg) 1.25 mg PO DAILY CANDELARIO Stop: 06/26/19 08:59 Last Admin: 04/28/19 08:44 Dose: 1.25 mg Trazodone HCl (Desyrel) 50 mg PO HS CANDELARIO; Protocol Stop: 06/15/19 20:59 Last Admin: 04/27/19 20:53 Dose: 50 mg Zolpidem Tartrate (Ambien) 5 mg PO HS PRN PRN Reason: Insomnia Stop: 06/11/19 00:49 Last Admin: 04/17/19 21:16 Dose: 5 mg General: demented HEENT: NC/AT, PERRLA, EOMI Neck: Supple, No JVD Lungs: CTAB Cardiovascular: RRR, Normal S1, Normal S2 Abdomen: soft, non-tender, positive bowel sound Extremities: excoriation Neurological: no change Internal Medicine Assmt/Plan - Assessment Assessment: ASSESSMENT AND PLAN: Dehydration, malnutrition, anemia, renal insufficiency. generalized weakness - Plan Plan: PLAN: We will provide the patient adequate nutritional support. will provide hydration, supplements, sypmtomatic care and treatment. We will continue to follow. Nutritional Asmnt/Malnutr-PDOC - Dietary Evaluation Malnutrition Findings (Please click <Entered> for more info): Nutritional Asmnt/Malnutrition Start: 04/12/19 14: 01 Text: Status: Complete Freq: Protocol: Document 04/12/19 14:02 LCHENG (Rec: 04/12/19 14:02 LCHENG [email or web address]) Nutritional Asmnt/Malnutrition Patient General Information Nutritional Screening High Risk Consult Diagnosis psychosis Pertinent Medical Hx/Surgical Hx no H&P as of this time Subjective Information Consult received for poor appetite. But MARIBEL Ruiz reported pt ate well, consumed 75% breakfast this morning. Pt requested strawberry Ensure . Current Diet Order/ Nutrition Support regular Pertinent Medications vit C, theragran Pertinent Labs 04/12 reviewed Nutritional Hx/Data Height 1.78 m Height (Calculated Centimeters) 177.8 Current Weight (lbs) 54.431 kg Weight (Calculated Kilograms) 54.4 Weight (Calculated Grams) 02064.1 [place] Body Weight 166 Body Mass Index (BMI) 17.2 Weight Status Underweight GI Symptoms GI Symptoms None Last BM not indicated Difficult in: None Skin Integrity/Comment: pressure area to reddened sacrume, abrasion to lower left extremity Current %PO Good (75-100%) Estimated Nutritional Goals BEE in Kcals: Using Current wt Calories/Kcals/Kg 27-32 Kcals Calculated 9727-9565 Protein: Using Current wt Protein g/k-1.2 Protein Calculated 55-66 Fluid: ml 1485-1760ml (1ml/kcal) Nutritional Problem 1. Problem Problem underweight Etiology possible inadequate energy intake Signs/Symptoms: BMI 17.2 Intervention/Recommendation Comments 1. Continue with regular diet as ordered. Add Ensure BID ( strawberry flavor). 2. Monitor PO intake, wt, labs and skin integrity 3. F/U as low risk in 7 days Expected Outcomes/Goals Expected Outcomes/Goals 1. PO intake to meet at least 75% of nutritional needs. 2. Wt stability, skin to remain intact, labs to approach WNL.
[2019-04-29] MEDS: Multivitamin Tab PO SCH (08:27)
--- NOTE | 2019-04-29 13:40 | Internal Medicine Prog Note ---
Internal Medicine Subjective - Subjective Service Date: 04/29/19 Patient is:: awake, verbal, interactive, confused Per staff patient has:: no adverse event, poor appetite Internal Medicine Objective - Results Recent Labs: Laboratory Last Values Triglycerides 53 mg/dL (<150) 04/12/19 06:10 Cholesterol 115 mg/dL (<200) 04/12/19 06:10 LDL Cholesterol Direct 61 mg/dL (75-193) L 04/12/19 06:10 HDL Cholesterol 36 mg/dL (23-92) 04/12/19 06:10 - Physical Exam Vitals and I&O: Vital Signs Temp 98.9 F 04/28/19 14:00 Pulse 85 04/28/19 14:00 Resp 20 04/28/19 14:00 BP 112/77 04/28/19 14:00 Pulse Ox 98 04/28/19 14:00 Intake & Output 04/28/19 04/29/19 04/29/19 18:59 06:59 18:59 Intake Total 860 100 Balance 860 100 Intake: Oral 860 100 Other: # Voids 3 # Bowel Movements 1 Stool Characteristics Soft Soft Formed Formed Active Medications: Current Medications Acetaminophen (Tylenol) 650 mg PO Q4HR PRN PRN Reason: Mild Pain / Temp above 100 Stop: 06/11/19 00:31 Al Hydrox/Mg Hydrox/Simethicone (Maalox) 30 ml PO Q4HR PRN PRN Reason: GI DISTRESS Stop: 06/11/19 00:31 Ascorbic Acid (Vitamin C) 500 mg PO DAILY CANDELARIO Stop: 06/12/19 08:59 Last Admin: 04/29/19 08:28 Dose: 500 mg Lorazepam (Ativan) 0.5 mg PO Q4HR PRN; Protocol PRN Reason: Anxiety Stop: 05/12/19 00:49 Last Admin: 04/25/19 08:08 Dose: 0.5 mg Magnesium Hydroxide (Milk Of Magnesia) 30 ml PO HS PRN PRN Reason: Constipation Multivitamins/Vitamin C (Theragran) 1 tab PO DAILY CANDELARIO Stop: 06/11/19 08:59 Last Admin: 04/29/19 08:27 Dose: 1 tab Risperidone (Risperdal) 0.5 mg PO HS CANDELARIO; Protocol Stop: 06/24/19 20:59 Last Admin: 04/28/19 20:58 Dose: 0.5 mg Risperidone (Risperdal) 1.5 mg PO DAILY CANDELARIO Stop: 06/28/19 08:59 Last Admin: 04/29/19 08:27 Dose: 1.5 mg Trazodone HCl (Desyrel) 50 mg PO HS CANDELARIO; Protocol Stop: 06/15/19 20:59 Last Admin: 04/28/19 20:58 Dose: 50 mg Zolpidem Tartrate (Ambien) 5 mg PO HS PRN PRN Reason: Insomnia Stop: 06/11/19 00:49 Last Admin: 04/17/19 21:16 Dose: 5 mg General: demented HEENT: NC/AT, PERRLA, EOMI Neck: Supple, No JVD Lungs: CTAB Cardiovascular: RRR, Normal S1, Normal S2 Abdomen: soft, non-tender, positive bowel sound Extremities: excoriation Neurological: no change Internal Medicine Assmt/Plan - Assessment Assessment: ASSESSMENT AND PLAN: Dehydration, malnutrition, anemia, renal insufficiency. generalized weakness - Plan Plan: We will provide the patient adequate nutritional support. will provide hydration, supplements, sypmtomatic care and treatment. We will continue to follow. Nutritional Asmnt/Malnutr-PDOC - Dietary Evaluation Malnutrition Findings (Please click <Entered> for more info): Nutritional Asmnt/Malnutrition Start: 04/12/19 14: 01 Text: Status: Complete Freq: Protocol: Document 04/12/19 14:02 LCHENG (Rec: 04/12/19 14:02 LCHENG [email or web address]) Nutritional Asmnt/Malnutrition Patient General Information Nutritional Screening High Risk Consult Diagnosis psychosis Pertinent Medical Hx/Surgical Hx no H&P as of this time Subjective Information Consult received for poor appetite. But MARIBEL Ruiz reported pt ate well, consumed 75% breakfast this morning. Pt requested strawberry Ensure . Current Diet Order/ Nutrition Support regular Pertinent Medications vit C, theragran Pertinent Labs 04/12 reviewed Nutritional Hx/Data Height 5 ft 10 in Height (Calculated Centimeters) 177.8 Current Weight (lbs) 120 lb Weight (Calculated Kilograms) 54.4 Weight (Calculated Grams) 97624.1 [place] Body Weight 166 Body Mass Index (BMI) 17.2 Weight Status Underweight GI Symptoms GI Symptoms None Last BM not indicated Difficult in: None Skin Integrity/Comment: pressure area to reddened sacrume, abrasion to lower left extremity Current %PO Good (75-100%) Estimated Nutritional Goals BEE in Kcals: Using Current wt Calories/Kcals/Kg 27-32 Kcals Calculated 9840-4752 Protein: Using Current wt Protein g/k-1.2 Protein Calculated 55-66 Fluid: ml 1485-1760ml (1ml/kcal) Nutritional Problem 1. Problem Problem underweight Etiology possible inadequate energy intake Signs/Symptoms: BMI 17.2 Intervention/Recommendation Comments 1. Continue with regular diet as ordered. Add Ensure BID ( strawberry flavor). 2. Monitor PO intake, wt, labs and skin integrity 3. F/U as low risk in 7 days Expected Outcomes/Goals Expected Outcomes/Goals 1. PO intake to meet at least 75% of nutritional needs. 2. Wt stability, skin to remain intact, labs to approach WNL.
--- NOTE | 2019-04-29 16:43 | Progress Notes ---
DATE: 04/27/2019 SUBJECTIVE: The patient seen today 04/27/2019. The patient is currently in the hospital. Alert and oriented to name, place. He believes the year is 1959, not quite sure about the month, not quite sure about the year. The patient remains disoriented, still believing that the staff is not feeding him, although he states that he feels full right now. Still bizarre, distracted, disorganized, talking nonsense, concerns about his ability to attend to his basic needs. No confirmed placement. PLAN: We will continue to monitor, titrate meds, initiate a 30-day hold. JOB# [id number]
--- NOTE | 2019-04-29 16:44 | Progress Notes ---
DATE: 04/28/2019 SUBJECTIVE: The patient remains disoriented, confused, bizarre, likely approaching his baseline. No agitation. No escalation of behaviors. He seems still pretty fixated on not getting enough food, although the nursing staff is feeding him. He is just very confused, forgetful. MEDICATIONS: Noted, good tolerability thus far. PLAN: ____ placement has been confirmed. We will continue to monitor, continue to titrate medications. JOB# [id number]
--- NOTE | 2019-04-29 21:29 | Progress Notes ---
DATE: 04/29/2019 SUBJECTIVE: A 59-year-old male currently in the hospital. We are pending a place for him to go. He is eating better, but remains still confused, disoriented, making some nonsensical statements, still symptomatic, mostly keeps to himself. AO to name only. Mostly in his room, highly isolative, withdrawn, likely approaching his baseline. Tolerant of treatment thus far. Tolerating to Risperdal. I will be continuing to titrate his dose slowly. We are currently attempting to confirm a safe discharge plan. Currently, he is on 30-day hold. JOB# [id number]
--- NOTE | 2019-04-30 09:11 | Progress Notes ---
DATE: 04/30/2019 SUBJECTIVE: The patient remains delusional, odd, talking nonsense and confused. He just knows he is in the hospital and his name. He does not know the year, the month. He states, "I need more medicine" likely approaching his baseline. Vitals were noted. No agitation, no escalation of behaviors, needing a higher level of prompting, redirection. PLAN: I will be increasing dosages of Risperdal. We will continue to monitor. JOB# [id number]
[2019-04-30] MEDS: Multivitamin Tab PO SCH (09:20)
--- NOTE | 2019-04-30 16:07 | Internal Medicine Prog Note ---
Internal Medicine Subjective - Subjective Service Date: 04/30/19 Patient is:: awake, verbal, interactive, confused Per staff patient has:: no adverse event, poor appetite Internal Medicine Objective - Results Recent Labs: Laboratory Last Values Triglycerides 53 mg/dL (<150) 04/12/19 06:10 Cholesterol 115 mg/dL (<200) 04/12/19 06:10 LDL Cholesterol Direct 61 mg/dL (75-193) L 04/12/19 06:10 HDL Cholesterol 36 mg/dL (23-92) 04/12/19 06:10 - Physical Exam Vitals and I&O: Vital Signs Temp 99.4 F 04/30/19 14:00 Pulse 92 04/30/19 14:00 Resp 18 04/30/19 14:00 BP 129/84 04/30/19 14:00 Pulse Ox 96 04/30/19 14:00 Intake & Output 04/29/19 04/30/19 04/30/19 18:59 06:59 18:59 Intake Total 1000 480 Output Total 1 Balance 1000 479 Intake: Oral 1000 480 Output: Urine/Stool Mix 1 Other: # Voids 4 1 # Bowel Movements 2 Active Medications: Current Medications Acetaminophen (Tylenol) 650 mg PO Q4HR PRN PRN Reason: Mild Pain / Temp above 100 Stop: 06/11/19 00:31 Al Hydrox/Mg Hydrox/Simethicone (Maalox) 30 ml PO Q4HR PRN PRN Reason: GI DISTRESS Stop: 06/11/19 00:31 Ascorbic Acid (Vitamin C) 500 mg PO DAILY CANDELARIO Stop: 06/12/19 08:59 Last Admin: 04/30/19 09:20 Dose: 500 mg Lorazepam (Ativan) 0.5 mg PO Q4HR PRN; Protocol PRN Reason: Anxiety Stop: 05/12/19 00:49 Last Admin: 04/25/19 08:08 Dose: 0.5 mg Magnesium Hydroxide (Milk Of Magnesia) 30 ml PO HS PRN PRN Reason: Constipation Multivitamins/Vitamin C (Theragran) 1 tab PO DAILY CANDELARIO Stop: 06/11/19 08:59 Last Admin: 04/30/19 09:20 Dose: 1 tab Risperidone (Risperdal) 2 mg PO DAILY CANDELARIO Stop: 06/29/19 08:59 Last Admin: 04/30/19 09:20 Dose: 2 mg Trazodone HCl (Desyrel) 50 mg PO HS CANDELARIO; Protocol Stop: 06/15/19 20:59 Last Admin: 04/29/19 21:23 Dose: 50 mg Zolpidem Tartrate (Ambien) 5 mg PO HS PRN PRN Reason: Insomnia Stop: 06/11/19 00:49 Last Admin: 04/17/19 21:16 Dose: 5 mg General: demented HEENT: NC/AT, PERRLA, EOMI Neck: Supple, No JVD Lungs: CTAB Cardiovascular: RRR, Normal S1, Normal S2 Abdomen: soft, non-tender, positive bowel sound Extremities: excoriation Neurological: no change Internal Medicine Assmt/Plan - Assessment Assessment: ASSESSMENT AND PLAN: Dehydration, malnutrition, anemia, renal insufficiency. generalized weakness - Plan Plan: We will provide the patient adequate nutritional support. will provide hydration, supplements, sypmtomatic care and treatment. We will continue to follow. Nutritional Asmnt/Malnutr-PDOC - Dietary Evaluation Malnutrition Findings (Please click <Entered> for more info): Nutritional Asmnt/Malnutrition Start: 04/12/19 14: 01 Text: Status: Complete Freq: Protocol: Document 04/12/19 14:02 LCHENG (Rec: 04/12/19 14:02 [email or web address]) Nutritional Asmnt/Malnutrition Patient General Information Nutritional Screening High Risk Consult Diagnosis psychosis Pertinent Medical Hx/Surgical Hx no H&P as of this time Subjective Information Consult received for poor appetite. But MARIBEL Ruiz reported pt ate well, consumed 75% breakfast this morning. Pt requested strawberry Ensure . Current Diet Order/ Nutrition Support regular Pertinent Medications vit C, theragran Pertinent Labs 04/12 reviewed Nutritional Hx/Data Height 5 ft 10 in Height (Calculated Centimeters) 177.8 Current Weight (lbs) 120 lb Weight (Calculated Kilograms) 54.4 Weight (Calculated Grams) 55339.1 [place] Body Weight 166 Body Mass Index (BMI) 17.2 Weight Status Underweight GI Symptoms GI Symptoms None Last BM not indicated Difficult in: None Skin Integrity/Comment: pressure area to reddened sacrume, abrasion to lower left extremity Current %PO Good (75-100%) Estimated Nutritional Goals BEE in Kcals: Using Current wt Calories/Kcals/Kg 27-32 Kcals Calculated 5034-1031 Protein: Using Current wt Protein g/k-1.2 Protein Calculated 55-66 Fluid: ml 1485-1760ml (1ml/kcal) Nutritional Problem 1. Problem Problem underweight Etiology possible inadequate energy intake Signs/Symptoms: BMI 17.2 Intervention/Recommendation Comments 1. Continue with regular diet as ordered. Add Ensure BID ( strawberry flavor). 2. Monitor PO intake, wt, labs and skin integrity 3. F/U as low risk in 7 days Expected Outcomes/Goals Expected Outcomes/Goals 1. PO intake to meet at least 75% of nutritional needs. 2. Wt stability, skin to remain intact, labs to approach WNL.
[2019-05-01] MEDS: Multivitamin Tab PO SCH (09:01)
--- NOTE | 2019-05-01 12:15 | Internal Medicine Prog Note ---
Internal Medicine Subjective - Subjective Patient seen and examined:: with staff, chart reviewed Patient is:: awake, verbal, interactive, confused Per staff patient has:: no adverse event, poor appetite Internal Medicine Objective - Results Recent Labs: Laboratory Last Values Triglycerides 53 mg/dL (<150) 04/12/19 06:10 Cholesterol 115 mg/dL (<200) 04/12/19 06:10 LDL Cholesterol Direct 61 mg/dL (75-193) L 04/12/19 06:10 HDL Cholesterol 36 mg/dL (23-92) 04/12/19 06:10 - Physical Exam Vitals and I&O: Vital Signs Temp 97.6 F 05/01/19 06:07 Pulse 74 05/01/19 06:07 Resp 19 05/01/19 08:00 BP 107/65 05/01/19 06:07 Pulse Ox 92 05/01/19 06:07 Intake & Output 04/30/19 05/01/19 05/01/19 18:59 06:59 18:59 Intake Total 1200 240 Balance 1200 240 Intake: Oral 1200 240 Other: # Voids 5 2 # Bowel Movements 2 Stool Characteristics Soft Formed Active Medications: Current Medications Acetaminophen (Tylenol) 650 mg PO Q4HR PRN PRN Reason: Mild Pain / Temp above 100 Stop: 06/11/19 00:31 Al Hydrox/Mg Hydrox/Simethicone (Maalox) 30 ml PO Q4HR PRN PRN Reason: GI DISTRESS Stop: 06/11/19 00:31 Ascorbic Acid (Vitamin C) 500 mg PO DAILY CANDELARIO Stop: 06/12/19 08:59 Last Admin: 05/01/19 09:01 Dose: 500 mg Lorazepam (Ativan) 0.5 mg PO Q4HR PRN; Protocol PRN Reason: Anxiety Stop: 05/12/19 00:49 Last Admin: 05/01/19 09:01 Dose: 0.5 mg Magnesium Hydroxide (Milk Of Magnesia) 30 ml PO HS PRN PRN Reason: Constipation Multivitamins/Vitamin C (Theragran) 1 tab PO DAILY CANDELARIO Stop: 06/11/19 08:59 Last Admin: 05/01/19 09:01 Dose: 1 tab Risperidone (Risperdal) 2 mg PO DAILY CANDELARIO Stop: 06/29/19 08:59 Last Admin: 05/01/19 09:01 Dose: 2 mg Trazodone HCl (Desyrel) 50 mg PO HS CANDELARIO; Protocol Stop: 06/15/19 20:59 Last Admin: 04/30/19 20:52 Dose: 50 mg Zolpidem Tartrate (Ambien) 5 mg PO HS PRN PRN Reason: Insomnia Stop: 06/11/19 00:49 Last Admin: 04/30/19 20:52 Dose: 5 mg General: demented HEENT: NC/AT, PERRLA, EOMI Neck: Supple, No JVD Lungs: CTAB Cardiovascular: RRR, Normal S1, Normal S2 Abdomen: soft, non-tender, positive bowel sound Extremities: excoriation Neurological: no change Internal Medicine Assmt/Plan - Assessment Assessment: ASSESSMENT AND PLAN: Dehydration, malnutrition, anemia, renal insufficiency. generalized weakness - Plan Plan: PLAN: We will provide the patient adequate nutritional support. will provide hydration, supplements, sypmtomatic care and treatment. We will continue to follow. Nutritional Asmnt/Malnutr-PDOC - Dietary Evaluation Malnutrition Findings (Please click <Entered> for more info): Nutritional Asmnt/Malnutrition Start: 04/12/19 14: 01 Text: Status: Complete Freq: Protocol: Document 04/12/19 14:02 LCHENG (Rec: 04/12/19 14:02 [email or web address]) Nutritional Asmnt/Malnutrition Patient General Information Nutritional Screening High Risk Consult Diagnosis psychosis Pertinent Medical Hx/Surgical Hx no H&P as of this time Subjective Information Consult received for poor appetite. But MARIBEL Ruiz reported pt ate well, consumed 75% breakfast this morning. Pt requested strawberry Ensure . Current Diet Order/ Nutrition Support regular Pertinent Medications vit C, theragran Pertinent Labs 04/12 reviewed Nutritional Hx/Data Height 1.78 m Height (Calculated Centimeters) 177.8 Current Weight (lbs) 54.431 kg Weight (Calculated Kilograms) 54.4 Weight (Calculated Grams) 65552.1 [place] Body Weight 166 Body Mass Index (BMI) 17.2 Weight Status Underweight GI Symptoms GI Symptoms None Last BM not indicated Difficult in: None Skin Integrity/Comment: pressure area to reddened sacrume, abrasion to lower left extremity Current %PO Good (75-100%) Estimated Nutritional Goals BEE in Kcals: Using Current wt Calories/Kcals/Kg 27-32 Kcals Calculated 9964-2822 Protein: Using Current wt Protein g/k-1.2 Protein Calculated 55-66 Fluid: ml 1485-1760ml (1ml/kcal) Nutritional Problem 1. Problem Problem underweight Etiology possible inadequate energy intake Signs/Symptoms: BMI 17.2 Intervention/Recommendation Comments 1. Continue with regular diet as ordered. Add Ensure BID ( strawberry flavor). 2. Monitor PO intake, wt, labs and skin integrity 3. F/U as low risk in 7 days Expected Outcomes/Goals Expected Outcomes/Goals 1. PO intake to meet at least 75% of nutritional needs. 2. Wt stability, skin to remain intact, labs to approach WNL.
--- NOTE | 2019-05-01 21:09 | Discharge Summary ---
DATE OF DISCHARGE: 05/01/2019 JUSTIFICATION FOR HOSPITALIZATION: Decompensation, psychosis, confusion and disorientation. DISCHARGE SUMMARY: A 59-year-old male transferred from [facility] on a hold, had been catatonic there, not talking, not eating, not taking medications, accepting IV medications with improvement. P.o. intake remained poor, bizarre, psychotic, ruminative, nonsensical, believing staff was not feeding him when they were. PAST PSYCHIATRIC HISTORY: Likely schizophrenia or bipolar. SOCIAL HISTORY: Noted. MEDICATIONS: Noted. MENTAL STATUS EXAMINATION: Please see full psych eval for details. MENTAL HOSPITAL COURSE: After initial assessment, the patient remained confused, disoriented, __and__ making some odd statements, believing he was not being fed. As hospitalization course progressed, staff noting that he did take his medications and was eating better, was less obsessive about not being fed and staff was able to feed him, able to make some of his needs known. No agitation toward latter __end__ of treatment, he was likely his baseline, confused, eating okay 75-100% of intake. Vitals were noted. CONDITION UPON DISCHARGE: Improved, allowing ADLs, brighter affect, confused, disoriented, eating well. No SI, no HI, no overt psychosis. PROVISIONAL DIAGNOSIS: Bipolar, rule out schizophrenia. Under medical, please see full H and P. PROGNOSIS: The patient follows up with outpatient mental health services and remains compliant with treatment. Prognosis will improve, otherwise guarded. JOB# [id number] [facility]
== END 2019-05-01 15:15 | DRG 885 ==
LOC: GERO 20:40
PROVIDERS: ADMIT Psychiatry & Neurology Psychiatry; ATTEND Psychiatry & Neurology Psychiatry
DX: F20.9 Schizophrenia, unspecified (principal); E46 Unspecified protein-calorie malnutrition; Z68.1 Body mass index [BMI] 19.9 or less, adult; E44.0 Moderate protein-calorie malnutrition; E86.0 Dehydration; D64.9 Anemia, unspecified; N28.9 Disorder of kidney and ureter, unspecified; Z59.0 Homelessness
CPT/HCPCS: 36415-UA; 80061-TC; 83036-90; G0410

== ENCOUNTER 2019-07-03 11:49 | Inpatient (IN) | payer MEDICARE, OTHER ==
[2019-07-03 12:56] LABS: % BASOPHILS 1.1 % (0.0-2.0); % EOSINOPHILS 5.9 % (0.0-5.0); % LYMPHOCYTES 21.7 % (20.0-50.0); % MONOCYTES 7.4 % (2.0-10.0); % NEUTROPHILS 63.9 % (40.0-80.0); BASOPHILE ABSOLUTE 0.1 Th/cumm (0-0.2); EOSINOPHILE ABSOLUTE 0.6 Th/cmm (0.1-0.4); HEMOGLOBIN 11.6 gm/dL (12-16); LYMPHOCYTE ABSOLUTE 2.2 Th/cmm (1.5-3.0); MEAN CELL VOLUME 87.6 fl (80-99); MEAN CORPUSCULAR HEMOGLOBIN 28.9 pg (26.0-30.0); MONOCYTE ABSOLUTE 0.8 Th/cmm (0.3-1.0); NEUTROPHILE ABSOLUTE 6.6 Th/cmm (1.8-8.0); PLATELET COUNT 335 Th/cmm (150-400); RED CELL DISTRIBUTION WIDTH 15.7 % (11.5-20.0); WHITE BLOOD COUNT 10.3 Th/cmm (4.8-10.8)
[2019-07-03 13:09] LABS: ALB/GLOB RATIO 1.3 (1.0-1.8); ALBUMIN 3.6 gm/dL (4.2-5.5); ALKALINE PHOSPHATASE 38 U/L (34-104); ANION GAP 8.1 (7.0-16.0); BILIRUBIN,TOTAL 0.4 mg/dL (0.3-1.0); BUN - UREA NITROGEN 27 mg/dL (7-25); CALCIUM SERUM 9.7 mg/dL (8.6-10.3); CARBON DIOXIDE 26.4 mEq/L (21.0-31.0); CHLORIDE 102 mEq/L (98-107); CREATININE - SERUM 1.1 mg/dL (0.7-1.3); GFR AFRICAN-AMERICAN > 60.0 ml/min (>90); GFR NON AFRICAN-AMERICAN > 60.0 ml/min; GLUCOSE 96 mg/dL (70-105); POTASSIUM SERUM 4.5 mEq/L (3.5-5.1); SGOT 16 U/L (13-39); SGPT/ALT 13 U/L (7-52); SODIUM SERUM 132 mEq/L (136-145); TOTAL PROTEIN,SERUM 6.4 gm/dL (6.0-8.3)
--- NOTE | 2019-07-03 14:01 | ED Physician Chart ---
ED Chief Complaint/HPI - Patient Information Date Seen:: 07/03/19 Time Seen:: 12:30 Chief Complaint:: aggresive Allergies:: Allergies Allergy/AdvReac Type Severity Reaction Status Date / Time No Known Allergies Allergy Verified 04/11/19 21:54 Vitals:: Vital Signs - 8 hr 07/03/19 12:16 Temp 97.8 F HR 79 RR 18 BP 117/78 O2 Sat % 98 Historian:: EMS, Medical Records Review:: Nurse's Note Reviewed, EMS run form Reviewed, Transfer documents Reviewed, Patient unable to respond (change in behavior on lithium) ED Review of Systems - Review of Systems General/Constitutional: No fever ED Past Medical History - Past Medical History Past Medical History: Other (psyche) Family Medical History - Family Member Mother History Unknown: Yes ED Physical Exam - Physical Examination General/Constitutional: Non-toxic appearing Head: Atraumatic Eyes: Lids, conjuctiva normal Skin: Nl inspection ENMT: External ears, nose nl Neck: Nontender Respiratory: Clear to Auscultation (diminished breath sounds) Cardio Vascular: RRR GI: No tenderness/rebounding/guarding (altered mental) ED Labs/Radiology/EKG Results - Lab Results Results: Laboratory Tests 07/03/19 07/03/19 12:35 12:35 WBC 10.3 RBC 4.00 L Hgb 11.6 L Hct 35.0 L MCV 87.6 MCH 28.9 MCHC Differential 33.0 RDW 15.7 Plt Count 335 MPV 8.2 Neutrophils % 63.9 Lymphocytes % 21.7 Monocytes % 7.4 Eosinophils % 5.9 H Basophils % 1.1 Sodium 132 L Potassium 4.5 Chloride 102 Carbon Dioxide 26.4 Anion Gap 8.1 BUN 27 H Creatinine 1.1 Est GFR ( Amer) > 60.0 Est GFR (Non-Af Amer) > 60.0 BUN/Creatinine Ratio 24.5 Glucose 96 Calcium 9.7 Total Bilirubin 0.4 AST 16 ALT 13 Alkaline Phosphatase 38 Total Protein 6.4 Albumin 3.6 L Globulin 2.8 Albumin/Globulin Ratio 1.3 ED Assessment - Assessment General Assessment: psychotic break ED Septic Shock - . Is Septic Shock (SBP<90, OR Lactate>4 mmol\L) present?: No - <6hrs of presentation: Vital Signs: Vital Signs - 8 hr 07/03/19 12:16 Temp 97.8 F HR 79 RR 18 BP 117/78 O2 Sat % 98 ED Reassessment (Disposition) - Reassessment Reassessment Condition:: Unchanged - Patient Disposition Discharge/Transfer:: Acute Care w/in this hosp (admit to psyche)
[2019-07-03] MEDS ORDERED: Magnesium Hydroxide (MOM) 30 mL UDC PO PRN (14:25)
[2019-07-03] MEDS ORDERED: Maalox 30 mL Cup PO PRN (14:25)
--- NOTE | 2019-07-03 14:59 | History & Physical ---
ADMIT DATE: 07/03/2019 CHIEF COMPLAINT: Increasing agitation and aggressive behavior at eating. HISTORY OF PRESENT ILLNESS: This is a 59-year-old male with history of psych disorder, homelessness, admitted from nursing facility secondary to above behavior under the service of Dr. Carlson. The patient is agitated, trying to hit the ER physician. The patient denies chest pain or shortness of breath. PAST MEDICAL HISTORY: As mentioned in history of present illness. PAST SURGICAL HISTORY: Denies surgeries in the past. The patient has oral ulcer disease accordingly. ALLERGIES: No known drug allergies. MEDICATIONS: The patient is on trazodone, ___, magnesium, lorazepam, iron, Colace, Coumadin, ascorbic acid, Tylenol. FAMILY HISTORY: Noncontributory. SOCIAL HISTORY: The patient is a ____, the patient used to smoke 1-2 packs per day, used to drink, or intravenous drug use. The patient did some labor work, , no children. REVIEW OF SYSTEMS: GENERAL: Complains not feeling well. HEENT: No blurred vision or pain. LUNGS: The patient was diagnosed with COPD. Denies asthma. HEART: The patient with hypertension. Denies coronary artery disease. ABDOMEN: No mass or pain. GENITOURINARY: The patient denies increased frequency or dysuria. NEUROLOGIC: No headache, seizure or syncope. PSYCHIATRIC: Denies. PHYSICAL EXAMINATION: VITAL SIGNS: Blood pressure 170/70, respirations 18, pulse 79, heart rate 78. GENERAL: Elderly male who appears his stated age. NECK: Supple. No mass. LUNGS: Equal breath sounds, few rhonchi. HEART: Regular rate and rhythm with systolic ejection murmur. ABDOMEN: Soft, globular. EXTREMITIES: Positive excoriations. NEUROLOGIC: Limited. LABORATORY DATA: WBC 10, hemoglobin 11, platelets 352. Sodium 139, potassium 4.5, BUN 27, creatinine 1.1, blood sugar 96, albumin 3.6. UA is pending. ASSESSMENT AND PLAN: 1. Hypertension. 2. Dehydration. 3. Renal insufficiency. 4. Thin built. 5. History of agitation and psych disorder. 6. Anemia. 7. Hyponatremia. 8. Low albumin. PLAN: Continue oxygen, bronchodilator treatments. We will provide the patient with adequate support with antihypertensive medication. We will monitor hemoglobin and hematocrit. We will review outpatient basis. We will continue monitoring the patient closely. PSYCHIATRIC# [id number]
[2019-07-03 17:52] LABS: CHOLESTEROL 144 mg/dL (<200); HDL -HIGH DENSITY LIPOPROTEIN 50 mg/dL (23-92); TRIGLYCERIDES 86 mg/dL (<150)
[2019-07-03] MEDS ORDERED: Pneumococcal Vaccine 0.5 mL Vial IM ONE (18:00)
[2019-07-03 19:12] VITALS: BP 117/78
[2019-07-03] MEDS: Haloperidol Lactate Oral sol. 2 mg/mL Udc PO SCH (21:51)
--- NOTE | 2019-07-03 22:51 | Psychiatric Evaluation ---
DATE OF SERVICE: 07/03/2019 CHIEF COMPLAINT: A 59-year-old male, currently in the Emergency Room coming from a snf facility, apparently was unruly, concerns for lithium toxicity, but refusing labs. Unable to be cared for at that level of care. The patient is a very poor historian. In fact, refusing to speak with me. He is stating "Get away, get away, you are not my doctor." Otherwise, he has been calm in the Emergency Room. PAST PSYCHIATRIC HISTORY: Multiple admissions in the past. I have spoken with the patient's family over the phone in the past as well, confirming his long psychiatric history. During his last hospitalization, he was refusing all care and treatment, and I had to file a [place] petition, as he was refusing medications and was extremely aggressive and irritable and agitated, spitting, for example. SOCIAL HISTORY: He is staying at a snf. Family does visit him and is involved from time to time. MEDICATIONS: Noted. MENTAL STATUS EXAMINATION: Stated age. Fair eye contact, not really saying much to me, irritable, guarded. Seems disorganized, unclear psychotic symptoms, unclear SI or HI. Poor insight, very poor impulse control. PROVISIONAL DIAGNOSES: Schizophrenia, rule out schizoaffective disorder. MEDICAL: Please see full H and P. RECOMMENDATIONS AND PLAN: We will continue to monitor alongside the primary medical team. Recommend Geropsych placement, if behaviors persist. [facility]# [id number]
[2019-07-04 07:41] LABS: A1C 5.6 % (4.8-5.6)
[2019-07-04] MEDS: Ferrous Sulfate 325 MG TAB PO SCH (08:37)
[2019-07-04] MEDS: Multivitamin Tab PO SCH (08:37)
[2019-07-04] MEDS: Haloperidol Lactate Oral sol. 2 mg/mL Udc PO SCH ×3 (08:38→20:46)
[2019-07-04] MEDS ORDERED: cloNIDine 0.1 mg/24 hr Tdm TD SCH (09:00)
[2019-07-04] MEDS: cloNIDine 0.1 mg/24 hr Tdm TD SCH (10:42)
--- NOTE | 2019-07-04 12:15 | Internal Medicine Prog Note ---
Internal Medicine Subjective - Subjective Patient seen and examined:: with staff, chart reviewed Patient is:: awake, verbal, interactive, agitated, confused Per staff patient has:: no adverse event, no episodes of fall, poor appetite, confused, tolerating meds Internal Medicine Objective - Results Result Diagrams: 07/03/19 12:35 07/03/19 12:35 Recent Labs: Laboratory Last Values WBC 10.3 Th/cmm (4.8-10.8) 07/03/19 12:35 RBC 4.00 Mil/cmm (4.30-5.70) L 07/03/19 12:35 Hgb 11.6 gm/dL (12-16) L 07/03/19 12:35 Hct 35.0 % (41.0-60) L 07/03/19 12:35 MCV 87.6 fl (80-99) 07/03/19 12:35 MCH 28.9 pg (26.0-30.0) 07/03/19 12:35 MCHC Differential 33.0 pg (28.0-36.0) 07/03/19 12:35 RDW 15.7 % (11.5-20.0) 07/03/19 12:35 Plt Count 335 Th/cmm (150-400) 07/03/19 12:35 MPV 8.2 fl 07/03/19 12:35 Neutrophils % 63.9 % (40.0-80.0) 07/03/19 12:35 Lymphocytes % 21.7 % (20.0-50.0) 07/03/19 12:35 Monocytes % 7.4 % (2.0-10.0) 07/03/19 12:35 Eosinophils % 5.9 % (0.0-5.0) H 07/03/19 12:35 Basophils % 1.1 % (0.0-2.0) 07/03/19 12:35 Sodium 132 mEq/L (136-145) L 07/03/19 12:35 Potassium 4.5 mEq/L (3.5-5.1) 07/03/19 12:35 Chloride 102 mEq/L (98-107) 07/03/19 12:35 Carbon Dioxide 26.4 mEq/L (21.0-31.0) 07/03/19 12:35 Anion Gap 8.1 (7.0-16.0) 07/03/19 12:35 BUN 27 mg/dL (7-25) H 07/03/19 12:35 Creatinine 1.1 mg/dL (0.7-1.3) 07/03/19 12:35 Est GFR ( Amer) > 60.0 ml/min (>90) 07/03/19 12:35 Est GFR (Non-Af Amer) > 60.0 ml/min 07/03/19 12:35 BUN/Creatinine Ratio 24.5 07/03/19 12:35 Glucose 96 mg/dL (70-105) 07/03/19 12:35 Calcium 9.7 mg/dL (8.6-10.3) 07/03/19 12:35 Total Bilirubin 0.4 mg/dL (0.3-1.0) 07/03/19 12:35 AST 16 U/L (13-39) 07/03/19 12:35 ALT 13 U/L (7-52) 07/03/19 12:35 Alkaline Phosphatase 38 U/L (34-104) 07/03/19 12:35 Total Protein 6.4 gm/dL (6.0-8.3) 07/03/19 12:35 Albumin 3.6 gm/dL (4.2-5.5) L 07/03/19 12:35 Globulin 2.8 gm/dL 07/03/19 12:35 Albumin/Globulin Ratio 1.3 (1.0-1.8) 07/03/19 12:35 Triglycerides 86 mg/dL (<150) 07/03/19 12:35 Cholesterol 144 mg/dL (<200) 07/03/19 12:35 LDL Cholesterol Direct 81 mg/dL (75-193) 07/03/19 12:35 HDL Cholesterol 50 mg/dL (23-92) 07/03/19 12:35 [place] 1.18 mmol/L (0.5-1.0) H 07/03/19 12:35 - Physical Exam Vitals and I&O: Vital Signs Temp 98.7 F 07/04/19 06:35 Pulse 64 07/04/19 06:35 Resp 18 07/04/19 06:35 BP 109/68 07/04/19 06:35 Pulse Ox 98 07/04/19 06:35 Intake & Output 07/03/19 07/04/19 07/04/19 18:59 06:59 18:59 Weight (lbs) 49.895 kg 49.895 kg Other: # Voids 3 # Bowel Movements 1 Weight Source Estimated Bedscale Active Medications: Current Medications Acetaminophen (Tylenol) 650 mg PO Q6H PRN PRN Reason: Pain / Temp above 100 Stop: 09/01/19 14:24 Al Hydrox/Mg Hydrox/Simethicone (Maalox) 30 ml PO Q4H PRN PRN Reason: GI DISTRESS Stop: 09/01/19 14:24 Ascorbic Acid (Vitamin C) 500 mg PO DAILY CANDELARIO Stop: 09/02/19 08:59 Last Admin: 07/04/19 08:37 Dose: 500 mg Clonidine HCl (Mbmufaro-Gze-7) 1 patch TD QTUE CANDELARIO Stop: 09/02/19 08:59 Last Admin: 07/04/19 10:42 Dose: Not Given Docusate Sodium (Colace) 100 mg PO DAILY CANDELARIO Stop: 09/02/19 08:59 Last Admin: 07/04/19 08:37 Dose: 100 mg Ferrous Sulfate (Iron) 325 mg PO DAILY CANDELARIO Stop: 09/02/19 08:59 Last Admin: 07/04/19 08:37 Dose: 325 mg Haloperidol Lactate (Haldol) 2 mg PO TID CANDELARIO Stop: 09/01/19 20:59 Last Admin: 07/04/19 08:38 Dose: 2 mg Lorazepam (Ativan) 0.5 mg PO Q6H PRN; Protocol PRN Reason: Agitation Stop: 09/01/19 14:24 Magnesium Hydroxide (Milk Of Magnesia) 30 ml PO HS PRN PRN Reason: Constipation Stop: 09/01/19 14:24 Multivitamins/Vitamin C (Theragran) 1 tab PO DAILY CANDELARIO Stop: 09/02/19 08:59 Last Admin: 07/04/19 08:37 Dose: 1 tab Trazodone HCl (Desyrel) 50 mg PO HS CANDELARIO; Protocol Stop: 09/01/19 20:59 Last Admin: 07/03/19 21:51 Dose: 50 mg General: demented, thin, appears older HEENT: NC/AT, PERRLA, EOMI Neck: Supple, No JVD, No thyromegaly, No LAD Lungs: CTAB Cardiovascular: RRR, Normal S1, Normal S2 Abdomen: soft, non-tender, thin, non-distended, positive bowel sound Extremities: excoriation, contracture Internal Medicine Assmt/Plan - Assessment Assessment: ASSESSMENT AND PLAN: 1. Hypertension. 2. Dehydration. 3. Renal insufficiency. 4. Thin built. 5. History of agitation and psych disorder. 6. Anemia. 7. Hyponatremia. 8. Low albumin. - Plan Plan: PLAN: Continue oxygen, bronchodilator treatments. We will provide the patient with adequate support with antihypertensive medication. We will monitor hemoglobin and hematocrit. We will review mes We will continue monitoring the patient closely. Nutritional Asmnt/Malnutr-PDOC - Dietary Evaluation Malnutrition Findings (Please click <Entered> for more info): Nutritional Asmnt/Malnutrition Start: 07/04/19 11: 29 Text: Status: Complete Freq: Protocol: Document 07/04/19 11:29 CARLOS EDUARDO (Rec: 07/04/19 11:33 CARLOS EDUARDO GREEN-[id number]) Nutritional Asmnt/Malnutrition Patient General Information Nutritional Screening High Risk Diagnosis Psychosis Pertinent Medical Hx/Surgical Hx Psych Disorder, oral ulcer disease, COPD Subjective Information Pt is a 59-year-old male admitted on 07/03 d/t aggressiveness. RN, Zhang, stated Pt ate well this morning, 70% meal and seemed to be in a good mood. As Pt is underweight and has refused meals d/t psychosis in previous hospital visits, adding Ensure Enlive TID to encourage weight gain trending towards IBW. HT: 510 WT: 110 LB (50 kg) BMI: 15.79 (Underweight) GI: Not noted BM: Not Noted I/O: Not Noted Skin: Not noted Jhonathan: 17 Diet Order: Cardiac, chopped Estimated Energy Needs: ( Underweight, CBW) 7075-6751 kcals (30-35 kcals/ kg) 50-60g Pro (1.0-1.2 g/kg) 1818-4271 ml (35-40 ml/kg) Current Diet Order/ Nutrition Support Cardiac, chopped Pertinent Medications Maalox (PRN), Vitamin C, Colace, Ferrous Sulfate, MOM ( PRN), Theregran Pertinent Labs 07/03: Hgb/Hct 11.6/35.0, Na 132, BUN/Cr 27/1.1, Alb 3.6 Nutritional Hx/Data Height 1.78 m Height (Calculated Centimeters) 177.8 Current Weight (lbs) 49.895 kg Weight (Calculated Kilograms) 49.9 Weight (Calculated Grams) 25551.2 [place] Body Weight 166 LB (75.45kg) % [place] Body Weight 66 Body Mass Index (BMI) 15.7 Weight Status Underweight GI Symptoms Last BM Not noted Skin Integrity/Comment: Jhonathan: 17 Current %PO Fair (50-74%) Estimated Nutritional Goals BEE in Kcals: Using Current wt Calories/Kcals/Kg 30-35 Kcals Calculated 8952-9951 Protein: Using Current wt Protein g/k.0-1.2 Protein Calculated 50-60 Fluid: ml 5585-1805 ml (35-40 ml/kg) Nutritional Problem 1. Problem Problem Underweight Etiology r/t psychosis Signs/Symptoms: aeb Pt past behavior of refusing meals for consecutive days. Malnutrition Related to Morbid Obesity Malnutrition related to morbid obesity No Intervention/Recommendation Comments 1. Continue with Cardiac, chopped diet as ordered. 2. Add Ensure Enlive TID ( completed). Expected Outcomes/Goals Expected Outcomes/Goals 1. Continue with Cardiac, chopped diet as ordered. 2. Add Ensure Enlive TID ( completed). 3. PO intake to meet 75% of nutritional needs. 4. Monitor PO intake, wt, nutrition related labs, and skin integrity. 5. F/U as moderate risk in 3-5 days, 07/06-07/08
--- NOTE | 2019-07-05 00:40 | Psychiatric Evaluation ---
DATE OF SERVICE: 07/04/2019 HISTORY OF PRESENT ILLNESS: A 59-year-old male coming in from the Emergency Room, apparently was unruly and was refusing blood draws, concerns for high lithium level. The patient is still aggressive, this afternoon, yelling, screaming and cursing "get the fuck out," "you don't what you are doing," "I know what I am doing with my medications." I cannot really interview him, he is simply too agitated, too aggressive, too combative, verbally accosting me and cursing at me. Medications were noted including Haldol. PAST PSYCHIATRIC HISTORY: Admissions in the past generally. For the last time, he was pretty aggressive. SOCIAL HISTORY: Family involvement from brother and father, coming from a group home. MENTAL STATUS EXAMINATION: Stated age. Fair eye contact, loud, screaming, yelling, seems tangential. No overt SI or HI, unclear psychotic symptoms, although he seems delusional, paranoid, fearful that we are somehow going to harm him. PROVISIONAL DIAGNOSES: Schizophrenia, rule out bipolar. MEDICAL HISTORY: Please see full H and P. ESTIMATED LENGTH OF STAY: 7-10 days. ASSESSMENT: The patient is requiring hospitalization, aggressive, agitated, verbally accosting others, refusing care. PLAN: We will continue to monitor. Continue current dosing of Haldol. TREATMENT PLAN: Includes group as well as milieu therapy. CONDITIONS FOR DISCHARGE: Improved mood, improved affect, better control of any hesitation or paranoia. [facility]# [id number]
[2019-07-05] MEDS: Haloperidol Lactate Oral sol. 2 mg/mL Udc PO SCH ×3 (08:48→20:35)
[2019-07-05] MEDS: Multivitamin Tab PO SCH (08:48)
[2019-07-05] MEDS: Ferrous Sulfate 325 MG TAB PO SCH (08:48)
--- NOTE | 2019-07-05 14:41 | Internal Medicine Prog Note ---
Internal Medicine Subjective - Subjective Patient seen and examined:: with staff, chart reviewed Patient is:: awake, verbal, interactive, agitated, confused Per staff patient has:: no adverse event, no episodes of fall, poor appetite, confused, tolerating meds Internal Medicine Objective - Results Result Diagrams: 07/03/19 12:35 07/03/19 12:35 Recent Labs: Laboratory Last Values WBC 10.3 Th/cmm (4.8-10.8) 07/03/19 12:35 RBC 4.00 Mil/cmm (4.30-5.70) L 07/03/19 12:35 Hgb 11.6 gm/dL (12-16) L 07/03/19 12:35 Hct 35.0 % (41.0-60) L 07/03/19 12:35 MCV 87.6 fl (80-99) 07/03/19 12:35 MCH 28.9 pg (26.0-30.0) 07/03/19 12:35 MCHC Differential 33.0 pg (28.0-36.0) 07/03/19 12:35 RDW 15.7 % (11.5-20.0) 07/03/19 12:35 Plt Count 335 Th/cmm (150-400) 07/03/19 12:35 MPV 8.2 fl 07/03/19 12:35 Neutrophils % 63.9 % (40.0-80.0) 07/03/19 12:35 Lymphocytes % 21.7 % (20.0-50.0) 07/03/19 12:35 Monocytes % 7.4 % (2.0-10.0) 07/03/19 12:35 Eosinophils % 5.9 % (0.0-5.0) H 07/03/19 12:35 Basophils % 1.1 % (0.0-2.0) 07/03/19 12:35 Sodium 132 mEq/L (136-145) L 07/03/19 12:35 Potassium 4.5 mEq/L (3.5-5.1) 07/03/19 12:35 Chloride 102 mEq/L (98-107) 07/03/19 12:35 Carbon Dioxide 26.4 mEq/L (21.0-31.0) 07/03/19 12:35 Anion Gap 8.1 (7.0-16.0) 07/03/19 12:35 BUN 27 mg/dL (7-25) H 07/03/19 12:35 Creatinine 1.1 mg/dL (0.7-1.3) 07/03/19 12:35 Est GFR ( Amer) > 60.0 ml/min (>90) 07/03/19 12:35 Est GFR (Non-Af Amer) > 60.0 ml/min 07/03/19 12:35 BUN/Creatinine Ratio 24.5 07/03/19 12:35 Glucose 96 mg/dL (70-105) 07/03/19 12:35 Calcium 9.7 mg/dL (8.6-10.3) 07/03/19 12:35 Total Bilirubin 0.4 mg/dL (0.3-1.0) 07/03/19 12:35 AST 16 U/L (13-39) 07/03/19 12:35 ALT 13 U/L (7-52) 07/03/19 12:35 Alkaline Phosphatase 38 U/L (34-104) 07/03/19 12:35 Total Protein 6.4 gm/dL (6.0-8.3) 07/03/19 12:35 Albumin 3.6 gm/dL (4.2-5.5) L 07/03/19 12:35 Globulin 2.8 gm/dL 07/03/19 12:35 Albumin/Globulin Ratio 1.3 (1.0-1.8) 07/03/19 12:35 Triglycerides 86 mg/dL (<150) 07/03/19 12:35 Cholesterol 144 mg/dL (<200) 07/03/19 12:35 LDL Cholesterol Direct 81 mg/dL (75-193) 07/03/19 12:35 HDL Cholesterol 50 mg/dL (23-92) 07/03/19 12:35 [place] 1.18 mmol/L (0.5-1.0) H 07/03/19 12:35 - Physical Exam Vitals and I&O: Vital Signs Temp 98.0 F 07/04/19 20:45 Pulse 74 07/04/19 20:45 Resp 18 07/04/19 20:45 BP 107/76 07/04/19 20:45 Pulse Ox 98 07/04/19 20:45 Intake & Output 07/04/19 07/05/19 07/05/19 18:59 06:59 18:59 Intake Total 120 Balance 120 Weight (lbs) 0 g Intake: Oral 120 Other: # Voids 2 # Bowel Movements 0 Weight Source Estimated Active Medications: Current Medications Acetaminophen (Tylenol) 650 mg PO Q6H PRN PRN Reason: Pain / Temp above 100 Stop: 09/01/19 14:24 Al Hydrox/Mg Hydrox/Simethicone (Maalox) 30 ml PO Q4H PRN PRN Reason: GI DISTRESS Stop: 09/01/19 14:24 Ascorbic Acid (Vitamin C) 500 mg PO DAILY CANDELARIO Stop: 09/02/19 08:59 Last Admin: 07/05/19 08:48 Dose: 500 mg Clonidine HCl (Twwdtblp-Dww-0) 1 patch TD QTUE CANDELARIO Stop: 09/02/19 08:59 Last Admin: 07/04/19 10:42 Dose: Not Given Docusate Sodium (Colace) 100 mg PO DAILY CANDELARIO Stop: 09/02/19 08:59 Last Admin: 07/05/19 08:48 Dose: 100 mg Ferrous Sulfate (Iron) 325 mg PO DAILY CANDELARIO Stop: 09/02/19 08:59 Last Admin: 07/05/19 08:48 Dose: 325 mg Haloperidol Lactate (Haldol) 2 mg PO TID CANDELARIO Stop: 09/01/19 20:59 Last Admin: 07/05/19 13:05 Dose: 2 mg Lorazepam (Ativan) 0.5 mg PO Q6H PRN; Protocol PRN Reason: Agitation Stop: 09/01/19 14:24 Last Admin: 07/04/19 20:47 Dose: 0.5 mg Magnesium Hydroxide (Milk Of Magnesia) 30 ml PO HS PRN PRN Reason: Constipation Stop: 09/01/19 14:24 Multivitamins/Vitamin C (Theragran) 1 tab PO DAILY CANDELARIO Stop: 09/02/19 08:59 Last Admin: 07/05/19 08:48 Dose: 1 tab Trazodone HCl (Desyrel) 50 mg PO HS CANDELARIO; Protocol Stop: 09/01/19 20:59 Last Admin: 07/04/19 20:47 Dose: 50 mg General: demented, thin, appears older HEENT: NC/AT, PERRLA, EOMI Neck: Supple, No JVD, No thyromegaly, No LAD Lungs: CTAB Cardiovascular: RRR, Normal S1, Normal S2 Abdomen: soft, non-tender, thin, non-distended, positive bowel sound Extremities: excoriation, contracture Internal Medicine Assmt/Plan - Assessment Assessment: ASSESSMENT AND PLAN: 1. Hypertension. 2. Dehydration. 3. Renal insufficiency. 4. Thin built. 5. History of agitation and psych disorder. 6. Anemia. 7. Hyponatremia. 8. Low albumin. - Plan Plan: PLAN: Continue oxygen, bronchodilator treatments. We will provide the patient with adequate support with antihypertensive medication. We will monitor hemoglobin and hematocrit. We will review mes We will continue monitoring the patient closely. Nutritional Asmnt/Malnutr-PDOC - Dietary Evaluation Malnutrition Findings (Please click <Entered> for more info): Nutritional Asmnt/Malnutrition Start: 07/04/19 11: 29 Text: Status: Complete Freq: Protocol: Document 07/04/19 11:29 CARLOS EDUARDO (Rec: 07/04/19 11:33 CARLOS EDUARDO GREEN-[email or web address]) Nutritional Asmnt/Malnutrition Patient General Information Nutritional Screening High Risk Diagnosis Psychosis Pertinent Medical Hx/Surgical Hx Psych Disorder, oral ulcer disease, COPD Subjective Information Pt is a 59-year-old male admitted on 07/03 d/t aggressiveness. RNZhang, stated Pt ate well this morning, 70% meal and seemed to be in a good mood. As Pt is underweight and has refused meals d/t psychosis in previous hospital visits, adding Ensure Enlive TID to encourage weight gain trending towards IBW. HT: 510 WT: 110 LB (50 kg) BMI: 15.79 (Underweight) GI: Not noted BM: Not Noted I/O: Not Noted Skin: Not noted Jhonathan: 17 Diet Order: Cardiac, chopped Estimated Energy Needs: ( Underweight, CBW) 2072-4537 kcals (30-35 kcals/ kg) 50-60g Pro (1.0-1.2 g/kg) 5814-5504 ml (35-40 ml/kg) Current Diet Order/ Nutrition Support Cardiac, chopped Pertinent Medications Maalox (PRN), Vitamin C, Colace, Ferrous Sulfate, MOM ( PRN), Theregran Pertinent Labs 07/03: Hgb/Hct 11.6/35.0, Na 132, BUN/Cr 27/1.1, Alb 3.6 Nutritional Hx/Data Height 1.78 m Height (Calculated Centimeters) 177.8 Current Weight (lbs) 49.895 kg Weight (Calculated Kilograms) 49.9 Weight (Calculated Grams) 14350.2 [place] Body Weight 166 LB (75.45kg) % [place] Body Weight 66 Body Mass Index (BMI) 15.7 Weight Status Underweight GI Symptoms Last BM Not noted Skin Integrity/Comment: Jhonathan: 17 Current %PO Fair (50-74%) Estimated Nutritional Goals BEE in Kcals: Using Current wt Calories/Kcals/Kg 30-35 Kcals Calculated 5895-9371 Protein: Using Current wt Protein g/k.0-1.2 Protein Calculated 50-60 Fluid: ml 0160-1519 ml (35-40 ml/kg) Nutritional Problem 1. Problem Problem Underweight Etiology r/t psychosis Signs/Symptoms: aeb Pt past behavior of refusing meals for consecutive days. Malnutrition Related to Morbid Obesity Malnutrition related to morbid obesity No Intervention/Recommendation Comments 1. Continue with Cardiac, chopped diet as ordered. 2. Add Ensure Enlive TID ( completed). Expected Outcomes/Goals Expected Outcomes/Goals 1. Continue with Cardiac, chopped diet as ordered. 2. Add Ensure Enlive TID ( completed). 3. PO intake to meet 75% of nutritional needs. 4. Monitor PO intake, wt, nutrition related labs, and skin integrity. 5. F/U as moderate risk in 3-5 days, 07/06-07/08
[2019-07-06] MEDS: Ferrous Sulfate 325 MG TAB PO SCH (08:55)
[2019-07-06] MEDS: Multivitamin Tab PO SCH (08:55)
[2019-07-06] MEDS: Haloperidol Lactate Oral sol. 2 mg/mL Udc PO SCH ×3 (08:55→20:24)
--- NOTE | 2019-07-06 11:56 | Internal Medicine Prog Note ---
Internal Medicine Subjective - Subjective Patient seen and examined:: with staff, chart reviewed Patient is:: awake, verbal, interactive, agitated, confused Per staff patient has:: no adverse event, no episodes of fall, poor appetite, confused, tolerating meds Internal Medicine Objective - Results Result Diagrams: 07/03/19 12:35 07/03/19 12:35 Recent Labs: Laboratory Last Values WBC 10.3 Th/cmm (4.8-10.8) 07/03/19 12:35 RBC 4.00 Mil/cmm (4.30-5.70) L 07/03/19 12:35 Hgb 11.6 gm/dL (12-16) L 07/03/19 12:35 Hct 35.0 % (41.0-60) L 07/03/19 12:35 MCV 87.6 fl (80-99) 07/03/19 12:35 MCH 28.9 pg (26.0-30.0) 07/03/19 12:35 MCHC Differential 33.0 pg (28.0-36.0) 07/03/19 12:35 RDW 15.7 % (11.5-20.0) 07/03/19 12:35 Plt Count 335 Th/cmm (150-400) 07/03/19 12:35 MPV 8.2 fl 07/03/19 12:35 Neutrophils % 63.9 % (40.0-80.0) 07/03/19 12:35 Lymphocytes % 21.7 % (20.0-50.0) 07/03/19 12:35 Monocytes % 7.4 % (2.0-10.0) 07/03/19 12:35 Eosinophils % 5.9 % (0.0-5.0) H 07/03/19 12:35 Basophils % 1.1 % (0.0-2.0) 07/03/19 12:35 Sodium 132 mEq/L (136-145) L 07/03/19 12:35 Potassium 4.5 mEq/L (3.5-5.1) 07/03/19 12:35 Chloride 102 mEq/L (98-107) 07/03/19 12:35 Carbon Dioxide 26.4 mEq/L (21.0-31.0) 07/03/19 12:35 Anion Gap 8.1 (7.0-16.0) 07/03/19 12:35 BUN 27 mg/dL (7-25) H 07/03/19 12:35 Creatinine 1.1 mg/dL (0.7-1.3) 07/03/19 12:35 Est GFR ( Amer) > 60.0 ml/min (>90) 07/03/19 12:35 Est GFR (Non-Af Amer) > 60.0 ml/min 07/03/19 12:35 BUN/Creatinine Ratio 24.5 07/03/19 12:35 Glucose 96 mg/dL (70-105) 07/03/19 12:35 Calcium 9.7 mg/dL (8.6-10.3) 07/03/19 12:35 Total Bilirubin 0.4 mg/dL (0.3-1.0) 07/03/19 12:35 AST 16 U/L (13-39) 07/03/19 12:35 ALT 13 U/L (7-52) 07/03/19 12:35 Alkaline Phosphatase 38 U/L (34-104) 07/03/19 12:35 Total Protein 6.4 gm/dL (6.0-8.3) 07/03/19 12:35 Albumin 3.6 gm/dL (4.2-5.5) L 07/03/19 12:35 Globulin 2.8 gm/dL 07/03/19 12:35 Albumin/Globulin Ratio 1.3 (1.0-1.8) 07/03/19 12:35 Triglycerides 86 mg/dL (<150) 07/03/19 12:35 Cholesterol 144 mg/dL (<200) 07/03/19 12:35 LDL Cholesterol Direct 81 mg/dL (75-193) 07/03/19 12:35 HDL Cholesterol 50 mg/dL (23-92) 07/03/19 12:35 [place] 1.18 mmol/L (0.5-1.0) H 07/03/19 12:35 - Physical Exam Vitals and I&O: Vital Signs Temp 98.8 F 07/05/19 20:40 Pulse 92 07/05/19 20:40 Resp 18 07/05/19 20:40 BP 108/65 07/05/19 20:40 Pulse Ox 99 07/05/19 20:40 Intake & Output 07/05/19 07/06/19 07/06/19 18:59 06:59 18:59 Intake Total 120 Balance 120 Weight (lbs) 54.431 kg Intake: Oral 120 Other: # Voids 2 # Bowel Movements 0 Weight Source Estimated Active Medications: Current Medications Acetaminophen (Tylenol) 650 mg PO Q6H PRN PRN Reason: Pain / Temp above 100 Stop: 09/01/19 14:24 Al Hydrox/Mg Hydrox/Simethicone (Maalox) 30 ml PO Q4H PRN PRN Reason: GI DISTRESS Stop: 09/01/19 14:24 Ascorbic Acid (Vitamin C) 500 mg PO DAILY CANDELARIO Stop: 09/02/19 08:59 Last Admin: 07/06/19 08:55 Dose: 500 mg Clonidine HCl (Xhfxgbdx-Rvz-1) 1 patch TD QTUE CANDELARIO Stop: 09/02/19 08:59 Last Admin: 07/04/19 10:42 Dose: Not Given Docusate Sodium (Colace) 100 mg PO DAILY CANDELARIO Stop: 09/02/19 08:59 Last Admin: 07/06/19 08:55 Dose: 100 mg Ferrous Sulfate (Iron) 325 mg PO DAILY CANDELARIO Stop: 09/02/19 08:59 Last Admin: 07/06/19 08:55 Dose: 325 mg Haloperidol Lactate (Haldol) 3 mg PO TID CANDELARIO Stop: 09/03/19 20:59 Last Admin: 07/06/19 08:55 Dose: 3 mg Lorazepam (Ativan) 0.5 mg PO Q6H PRN; Protocol PRN Reason: Agitation Stop: 09/01/19 14:24 Last Admin: 07/05/19 17:08 Dose: 0.5 mg Magnesium Hydroxide (Milk Of Magnesia) 30 ml PO HS PRN PRN Reason: Constipation Stop: 09/01/19 14:24 Multivitamins/Vitamin C (Theragran) 1 tab PO DAILY CANDELARIO Stop: 09/02/19 08:59 Last Admin: 07/06/19 08:55 Dose: 1 tab Trazodone HCl (Desyrel) 50 mg PO HS CANDELARIO; Protocol Stop: 09/01/19 20:59 Last Admin: 07/05/19 20:35 Dose: 50 mg General: demented, thin, appears older HEENT: NC/AT, PERRLA, EOMI Neck: Supple, No JVD, No thyromegaly, No LAD Lungs: CTAB Cardiovascular: RRR, Normal S1, Normal S2 Abdomen: soft, non-tender, thin, non-distended, positive bowel sound Extremities: excoriation, contracture Internal Medicine Assmt/Plan - Assessment Assessment: ASSESSMENT AND PLAN: 1. Hypertension. 2. Dehydration. 3. Renal insufficiency. 4. Thin built. 5. History of agitation and psych disorder. 6. Anemia. 7. Hyponatremia. 8. Low albumin. - Plan Plan: PLAN: Continue oxygen, bronchodilator treatments. We will provide the patient with adequate support with antihypertensive medication. We will monitor hemoglobin and hematocrit. We will review mes We will continue monitoring the patient closely. Nutritional Asmnt/Malnutr-PDOC - Dietary Evaluation Malnutrition Findings (Please click <Entered> for more info): Nutritional Asmnt/Malnutrition Start: 07/04/19 11: 29 Text: Status: Complete Freq: Protocol: Document 07/04/19 11:29 CARLOS EDUARDO (Rec: 07/04/19 11:33 CARLOS EDUARDO GREEN-[id number]) Nutritional Asmnt/Malnutrition Patient General Information Nutritional Screening High Risk Diagnosis Psychosis Pertinent Medical Hx/Surgical Hx Psych Disorder, oral ulcer disease, COPD Subjective Information Pt is a 59-year-old male admitted on 07/03 d/t aggressiveness. RN, Zhang, stated Pt ate well this morning, 70% meal and seemed to be in a good mood. As Pt is underweight and has refused meals d/t psychosis in previous hospital visits, adding Ensure Enlive TID to encourage weight gain trending towards IBW. HT: 510 WT: 110 LB (50 kg) BMI: 15.79 (Underweight) GI: Not noted BM: Not Noted I/O: Not Noted Skin: Not noted Jhonathan: 17 Diet Order: Cardiac, chopped Estimated Energy Needs: ( Underweight, CBW) 0631-7575 kcals (30-35 kcals/ kg) 50-60g Pro (1.0-1.2 g/kg) 3870-5021 ml (35-40 ml/kg) Current Diet Order/ Nutrition Support Cardiac, chopped Pertinent Medications Maalox (PRN), Vitamin C, Colace, Ferrous Sulfate, MOM ( PRN), Theregran Pertinent Labs 07/03: Hgb/Hct 11.6/35.0, Na 132, BUN/Cr 27/1.1, Alb 3.6 Nutritional Hx/Data Height 1.78 m Height (Calculated Centimeters) 177.8 Current Weight (lbs) 49.895 kg Weight (Calculated Kilograms) 49.9 Weight (Calculated Grams) 08328.2 [place] Body Weight 166 LB (75.45kg) % [place] Body Weight 66 Body Mass Index (BMI) 15.7 Weight Status Underweight GI Symptoms Last BM Not noted Skin Integrity/Comment: Jhonathan: 17 Current %PO Fair (50-74%) Estimated Nutritional Goals BEE in Kcals: Using Current wt Calories/Kcals/Kg 30-35 Kcals Calculated 0311-8291 Protein: Using Current wt Protein g/k.0-1.2 Protein Calculated 50-60 Fluid: ml 3405-6084 ml (35-40 ml/kg) Nutritional Problem 1. Problem Problem Underweight Etiology r/t psychosis Signs/Symptoms: aeb Pt past behavior of refusing meals for consecutive days. Malnutrition Related to Morbid Obesity Malnutrition related to morbid obesity No Intervention/Recommendation Comments 1. Continue with Cardiac, chopped diet as ordered. 2. Add Ensure Enlive TID ( completed). Expected Outcomes/Goals Expected Outcomes/Goals 1. Continue with Cardiac, chopped diet as ordered. 2. Add Ensure Enlive TID ( completed). 3. PO intake to meet 75% of nutritional needs. 4. Monitor PO intake, wt, nutrition related labs, and skin integrity. 5. F/U as moderate risk in 3-5 days, 07/06-07/08
--- NOTE | 2019-07-06 15:32 | Progress Notes ---
DATE: 07/05/2019 SUBJECTIVE: The patient in the hospital, yelling at me, screaming at me, threatening to kill me, "I am going to kill you motherfucker," "fuck you." The patient was getting angry with roommate, yelling at the roommate, he had to be moved and per staff, he is generally calmer. The patient is highly impulsive, very unpredictable, aggressive. PLAN: We will continue to monitor. I will be increasing his dosing of Haldol. JOB# [id number]
--- NOTE | 2019-07-06 23:33 | Progress Notes ---
DATE: 07/06/2019 Case was discussed with staff of the patient, reviewed records. Covering for Dr. Carlson. Case was discussed with staff of the patient, reviewed records ____ many times so covering for Dr. Carlson. The patient was readmitted on 07/03/2019 because of aggressive behavior, yelling and screaming, cursing, using foul language. When I tried to talk to him, he was very irritable, aggressive, asking not to come into the room and keep saying "no, no, no." He is unpredictable, impulsive, needing redirection, has been compliant with the medication with no side effects from the Haldol 3 mg 3 times a day with no side effects, no sedation, no nausea. We will continue outpatient group therapy, milieu therapy, and adjust medication as needed. JOB# [id number]
[2019-07-07] MEDS: Haloperidol Lactate Oral sol. 2 mg/mL Udc PO SCH ×3 (08:30→20:35)
[2019-07-07] MEDS: Ferrous Sulfate 325 MG TAB PO SCH (08:30)
[2019-07-07] MEDS: Multivitamin Tab PO SCH (08:30)
--- NOTE | 2019-07-07 11:59 | Internal Medicine Prog Note ---
Internal Medicine Subjective - Subjective Patient seen and examined:: with staff, chart reviewed Patient is:: awake, verbal, interactive, agitated, confused Per staff patient has:: no adverse event, no episodes of fall, poor appetite, confused, tolerating meds Internal Medicine Objective - Results Result Diagrams: 07/03/19 12:35 07/03/19 12:35 Recent Labs: Laboratory Last Values WBC 10.3 Th/cmm (4.8-10.8) 07/03/19 12:35 RBC 4.00 Mil/cmm (4.30-5.70) L 07/03/19 12:35 Hgb 11.6 gm/dL (12-16) L 07/03/19 12:35 Hct 35.0 % (41.0-60) L 07/03/19 12:35 MCV 87.6 fl (80-99) 07/03/19 12:35 MCH 28.9 pg (26.0-30.0) 07/03/19 12:35 MCHC Differential 33.0 pg (28.0-36.0) 07/03/19 12:35 RDW 15.7 % (11.5-20.0) 07/03/19 12:35 Plt Count 335 Th/cmm (150-400) 07/03/19 12:35 MPV 8.2 fl 07/03/19 12:35 Neutrophils % 63.9 % (40.0-80.0) 07/03/19 12:35 Lymphocytes % 21.7 % (20.0-50.0) 07/03/19 12:35 Monocytes % 7.4 % (2.0-10.0) 07/03/19 12:35 Eosinophils % 5.9 % (0.0-5.0) H 07/03/19 12:35 Basophils % 1.1 % (0.0-2.0) 07/03/19 12:35 Sodium 132 mEq/L (136-145) L 07/03/19 12:35 Potassium 4.5 mEq/L (3.5-5.1) 07/03/19 12:35 Chloride 102 mEq/L (98-107) 07/03/19 12:35 Carbon Dioxide 26.4 mEq/L (21.0-31.0) 07/03/19 12:35 Anion Gap 8.1 (7.0-16.0) 07/03/19 12:35 BUN 27 mg/dL (7-25) H 07/03/19 12:35 Creatinine 1.1 mg/dL (0.7-1.3) 07/03/19 12:35 Est GFR ( Amer) > 60.0 ml/min (>90) 07/03/19 12:35 Est GFR (Non-Af Amer) > 60.0 ml/min 07/03/19 12:35 BUN/Creatinine Ratio 24.5 07/03/19 12:35 Glucose 96 mg/dL (70-105) 07/03/19 12:35 Calcium 9.7 mg/dL (8.6-10.3) 07/03/19 12:35 Total Bilirubin 0.4 mg/dL (0.3-1.0) 07/03/19 12:35 AST 16 U/L (13-39) 07/03/19 12:35 ALT 13 U/L (7-52) 07/03/19 12:35 Alkaline Phosphatase 38 U/L (34-104) 07/03/19 12:35 Total Protein 6.4 gm/dL (6.0-8.3) 07/03/19 12:35 Albumin 3.6 gm/dL (4.2-5.5) L 07/03/19 12:35 Globulin 2.8 gm/dL 07/03/19 12:35 Albumin/Globulin Ratio 1.3 (1.0-1.8) 07/03/19 12:35 Triglycerides 86 mg/dL (<150) 07/03/19 12:35 Cholesterol 144 mg/dL (<200) 07/03/19 12:35 LDL Cholesterol Direct 81 mg/dL (75-193) 07/03/19 12:35 HDL Cholesterol 50 mg/dL (23-92) 07/03/19 12:35 [place] 1.18 mmol/L (0.5-1.0) H 07/03/19 12:35 - Physical Exam Vitals and I&O: Vital Signs Temp 97.4 F 07/07/19 06:46 Pulse 62 07/07/19 06:46 Resp 18 07/07/19 06:46 BP 120/78 07/07/19 06:46 Pulse Ox 97 07/07/19 06:46 Intake & Output 07/06/19 07/07/19 07/07/19 18:59 06:59 18:59 Intake Total 1000 120 Balance 1000 120 Weight (lbs) 53.524 kg 53.524 kg Intake: Oral 1000 120 Other: # Voids 2 3 Weight Source Bedscale Bedscale Active Medications: Current Medications Acetaminophen (Tylenol) 650 mg PO Q6H PRN PRN Reason: Pain / Temp above 100 Stop: 09/01/19 14:24 Al Hydrox/Mg Hydrox/Simethicone (Maalox) 30 ml PO Q4H PRN PRN Reason: GI DISTRESS Stop: 09/01/19 14:24 Ascorbic Acid (Vitamin C) 500 mg PO DAILY [facility] Stop: 09/02/19 08:59 Last Admin: 07/07/19 08:30 Dose: 500 mg Clonidine HCl (Hsmsosur-Drj-9) 1 patch TD QTUE [facility] Stop: 09/02/19 08:59 Last Admin: 07/04/19 10:42 Dose: Not Given Docusate Sodium (Colace) 100 mg PO DAILY [facility] Stop: 09/02/19 08:59 Last Admin: 07/07/19 08:30 Dose: 100 mg Ferrous Sulfate (Iron) 325 mg PO DAILY [facility] Stop: 09/02/19 08:59 Last Admin: 07/07/19 08:30 Dose: 325 mg Haloperidol Lactate (Haldol) 3 mg PO TID [facility] Stop: 09/03/19 20:59 Last Admin: 07/07/19 08:30 Dose: 3 mg Lorazepam (Ativan) 0.5 mg PO Q6H PRN; Protocol PRN Reason: Agitation Stop: 09/01/19 14:24 Last Admin: 07/05/19 17:08 Dose: 0.5 mg Magnesium Hydroxide (Milk Of Magnesia) 30 ml PO HS PRN PRN Reason: Constipation Stop: 09/01/19 14:24 Multivitamins/Vitamin C (Theragran) 1 tab PO DAILY [facility] Stop: 09/02/19 08:59 Last Admin: 07/07/19 08:30 Dose: 1 tab Trazodone HCl (Desyrel) 50 mg PO HS [facility]; Protocol Stop: 09/01/19 20:59 Last Admin: 07/06/19 20:24 Dose: 50 mg General: demented, thin, appears older HEENT: NC/AT, PERRLA, EOMI Neck: Supple, No JVD, No thyromegaly, No LAD Lungs: CTAB Cardiovascular: RRR, Normal S1, Normal S2 Abdomen: soft, non-tender, thin, non-distended, positive bowel sound Extremities: excoriation, contracture Internal Medicine Assmt/Plan - Assessment Assessment: ASSESSMENT AND PLAN: 1. Hypertension. 2. Dehydration. 3. Renal insufficiency. 4. Thin built. 5. History of agitation and psych disorder. 6. Anemia. 7. Hyponatremia. 8. Low albumin. - Plan Plan: PLAN: Continue oxygen, bronchodilator treatments. We will provide the patient with adequate support with antihypertensive medication. We will monitor hemoglobin and hematocrit. We will review mes We will continue monitoring the patient closely. Nutritional Asmnt/Malnutr-PDOC - Dietary Evaluation Malnutrition Findings (Please click <Entered> for more info): Nutritional Asmnt/Malnutrition Start: 07/04/19 11: 29 Text: Status: Complete Freq: Protocol: Document 07/04/19 11:29 CARLOS EDUARDO (Rec: 07/04/19 11:33 CARLOS EDUARDO GREEN-[email or web address]) Nutritional Asmnt/Malnutrition Patient General Information Nutritional Screening High Risk Diagnosis Psychosis Pertinent Medical Hx/Surgical Hx Psych Disorder, oral ulcer disease, COPD Subjective Information Pt is a 59-year-old male admitted on 07/03 d/t aggressiveness. RNZhang, stated Pt ate well this morning, 70% meal and seemed to be in a good mood. As Pt is underweight and has refused meals d/t psychosis in previous hospital visits, adding Ensure Enlive TID to encourage weight gain trending towards IBW. HT: 510 WT: 110 LB (50 kg) BMI: 15.79 (Underweight) GI: Not noted BM: Not Noted I/O: Not Noted Skin: Not noted Jhonathan: 17 Diet Order: Cardiac, chopped Estimated Energy Needs: ( Underweight, CBW) 1803-4907 kcals (30-35 kcals/ kg) 50-60g Pro (1.0-1.2 g/kg) 4447-9626 ml (35-40 ml/kg) Current Diet Order/ Nutrition Support Cardiac, chopped Pertinent Medications Maalox (PRN), Vitamin C, Colace, Ferrous Sulfate, MOM ( PRN), Theregran Pertinent Labs 07/03: Hgb/Hct 11.6/35.0, Na 132, BUN/Cr 27/1.1, Alb 3.6 Nutritional Hx/Data Height 1.78 m Height (Calculated Centimeters) 177.8 Current Weight (lbs) 49.895 kg Weight (Calculated Kilograms) 49.9 Weight (Calculated Grams) 80060.2 [place] Body Weight 166 LB (75.45kg) % [place] Body Weight 66 Body Mass Index (BMI) 15.7 Weight Status Underweight GI Symptoms Last BM Not noted Skin Integrity/Comment: Jhonathan: 17 Current %PO Fair (50-74%) Estimated Nutritional Goals BEE in Kcals: Using Current wt Calories/Kcals/Kg 30-35 Kcals Calculated 0440-6635 Protein: Using Current wt Protein g/k.0-1.2 Protein Calculated 50-60 Fluid: ml 5019-1170 ml (35-40 ml/kg) Nutritional Problem 1. Problem Problem Underweight Etiology r/t psychosis Signs/Symptoms: aeb Pt past behavior of refusing meals for consecutive days. Malnutrition Related to Morbid Obesity Malnutrition related to morbid obesity No Intervention/Recommendation Comments 1. Continue with Cardiac, chopped diet as ordered. 2. Add Ensure Enlive TID ( completed). Expected Outcomes/Goals Expected Outcomes/Goals 1. Continue with Cardiac, chopped diet as ordered. 2. Add Ensure Enlive TID ( completed). 3. PO intake to meet 75% of nutritional needs. 4. Monitor PO intake, wt, nutrition related labs, and skin integrity. 5. F/U as moderate risk in 3-5 days, 07/06-07/08
--- NOTE | 2019-07-08 01:01 | Progress Notes ---
DATE: 07/07/[address] Carlson. Case was discussed with staff of the patient, reviewed records. The patient continues to be unpredictable, impulsive, labile, and threatening. He continues to have poor insight, getting angered very easily. His Haldol dose was increased by Dr. Carlson 2 days ago with no side effects, no sedation, no nausea, no extrapyramidal symptoms. We will continue outpatient group therapy, milieu therapy, and adjust medication as needed. [facility]# [id number] [facility]
[2019-07-08] MEDS: Ferrous Sulfate 325 MG TAB PO SCH (08:33)
[2019-07-08] MEDS: Haloperidol Lactate Oral sol. 2 mg/mL Udc PO SCH ×3 (08:33→20:31)
[2019-07-08] MEDS: Multivitamin Tab PO SCH (08:33)
--- NOTE | 2019-07-08 12:59 | Internal Medicine Prog Note ---
Internal Medicine Subjective - Subjective Patient seen and examined:: with staff, chart reviewed Patient is:: awake, verbal, interactive, agitated, confused Per staff patient has:: no adverse event, no episodes of fall, poor appetite, confused, tolerating meds Internal Medicine Objective - Results Result Diagrams: 07/03/19 12:35 07/03/19 12:35 Recent Labs: Laboratory Last Values WBC 10.3 Th/cmm (4.8-10.8) 07/03/19 12:35 RBC 4.00 Mil/cmm (4.30-5.70) L 07/03/19 12:35 Hgb 11.6 gm/dL (12-16) L 07/03/19 12:35 Hct 35.0 % (41.0-60) L 07/03/19 12:35 MCV 87.6 fl (80-99) 07/03/19 12:35 MCH 28.9 pg (26.0-30.0) 07/03/19 12:35 MCHC Differential 33.0 pg (28.0-36.0) 07/03/19 12:35 RDW 15.7 % (11.5-20.0) 07/03/19 12:35 Plt Count 335 Th/cmm (150-400) 07/03/19 12:35 MPV 8.2 fl 07/03/19 12:35 Neutrophils % 63.9 % (40.0-80.0) 07/03/19 12:35 Lymphocytes % 21.7 % (20.0-50.0) 07/03/19 12:35 Monocytes % 7.4 % (2.0-10.0) 07/03/19 12:35 Eosinophils % 5.9 % (0.0-5.0) H 07/03/19 12:35 Basophils % 1.1 % (0.0-2.0) 07/03/19 12:35 Sodium 132 mEq/L (136-145) L 07/03/19 12:35 Potassium 4.5 mEq/L (3.5-5.1) 07/03/19 12:35 Chloride 102 mEq/L (98-107) 07/03/19 12:35 Carbon Dioxide 26.4 mEq/L (21.0-31.0) 07/03/19 12:35 Anion Gap 8.1 (7.0-16.0) 07/03/19 12:35 BUN 27 mg/dL (7-25) H 07/03/19 12:35 Creatinine 1.1 mg/dL (0.7-1.3) 07/03/19 12:35 Est GFR ( Amer) > 60.0 ml/min (>90) 07/03/19 12:35 Est GFR (Non-Af Amer) > 60.0 ml/min 07/03/19 12:35 BUN/Creatinine Ratio 24.5 07/03/19 12:35 Glucose 96 mg/dL (70-105) 07/03/19 12:35 Calcium 9.7 mg/dL (8.6-10.3) 07/03/19 12:35 Total Bilirubin 0.4 mg/dL (0.3-1.0) 07/03/19 12:35 AST 16 U/L (13-39) 07/03/19 12:35 ALT 13 U/L (7-52) 07/03/19 12:35 Alkaline Phosphatase 38 U/L (34-104) 07/03/19 12:35 Total Protein 6.4 gm/dL (6.0-8.3) 07/03/19 12:35 Albumin 3.6 gm/dL (4.2-5.5) L 07/03/19 12:35 Globulin 2.8 gm/dL 07/03/19 12:35 Albumin/Globulin Ratio 1.3 (1.0-1.8) 07/03/19 12:35 Triglycerides 86 mg/dL (<150) 07/03/19 12:35 Cholesterol 144 mg/dL (<200) 07/03/19 12:35 LDL Cholesterol Direct 81 mg/dL (75-193) 07/03/19 12:35 HDL Cholesterol 50 mg/dL (23-92) 07/03/19 12:35 [place] 1.18 mmol/L (0.5-1.0) H 07/03/19 12:35 - Physical Exam Vitals and I&O: Vital Signs Temp 98.5 F 07/08/19 06:05 Pulse 92 07/07/19 20:00 Resp 19 07/07/19 20:00 BP 102/69 07/07/19 20:00 Pulse Ox 94 07/07/19 20:00 Intake & Output 07/07/19 07/08/19 07/08/19 18:59 06:59 18:59 Intake Total 800 720 Balance 800 720 Weight (lbs) 53.524 kg 36.287 kg Intake: Oral 800 720 Other: # Voids 3 # Bowel Movements 1 Weight Source Estimated Bedscale Active Medications: Current Medications Acetaminophen (Tylenol) 650 mg PO Q6H PRN PRN Reason: Pain / Temp above 100 Stop: 09/01/19 14:24 Al Hydrox/Mg Hydrox/Simethicone (Maalox) 30 ml PO Q4H PRN PRN Reason: GI DISTRESS Stop: 09/01/19 14:24 Ascorbic Acid (Vitamin C) 500 mg PO DAILY [facility] Stop: 09/02/19 08:59 Last Admin: 07/08/19 08:32 Dose: 500 mg Clonidine HCl (Flcqwomd-Vff-5) 1 patch TD QTUE [facility] Stop: 09/02/19 08:59 Last Admin: 07/04/19 10:42 Dose: Not Given Docusate Sodium (Colace) 100 mg PO DAILY [facility] Stop: 09/02/19 08:59 Last Admin: 07/08/19 08:33 Dose: 100 mg Ferrous Sulfate (Iron) 325 mg PO DAILY [facility] Stop: 09/02/19 08:59 Last Admin: 07/08/19 08:33 Dose: 325 mg Haloperidol Lactate (Haldol) 3 mg PO TID [facility] Stop: 09/03/19 20:59 Last Admin: 07/08/19 08:33 Dose: 3 mg Lorazepam (Ativan) 0.5 mg PO Q6H PRN; Protocol PRN Reason: Agitation Stop: 09/01/19 14:24 Last Admin: 07/05/19 17:08 Dose: 0.5 mg Magnesium Hydroxide (Milk Of Magnesia) 30 ml PO HS PRN PRN Reason: Constipation Stop: 09/01/19 14:24 Multivitamins/Vitamin C (Theragran) 1 tab PO DAILY [facility] Stop: 09/02/19 08:59 Last Admin: 07/08/19 08:33 Dose: 1 tab Trazodone HCl (Desyrel) 50 mg PO HS [facility]; Protocol Stop: 09/01/19 20:59 Last Admin: 07/07/19 20:36 Dose: 50 mg General: demented, thin, appears older HEENT: NC/AT, PERRLA, EOMI Neck: Supple, No JVD, No thyromegaly, No LAD Lungs: CTAB Cardiovascular: RRR, Normal S1, Normal S2 Abdomen: soft, non-tender, thin, non-distended, positive bowel sound Extremities: excoriation, contracture Internal Medicine Assmt/Plan - Assessment Assessment: ASSESSMENT AND PLAN: 1. Hypertension. 2. Dehydration. 3. Renal insufficiency. 4. Thin built. 5. History of agitation and psych disorder. 6. Anemia. 7. Hyponatremia. 8. Low albumin. - Plan Plan: PLAN: Continue oxygen, bronchodilator treatments. We will provide the patient with adequate support with antihypertensive medication. We will monitor hemoglobin and hematocrit. We will review mes We will continue monitoring the patient closely. Nutritional Asmnt/Malnutr-PDOC - Dietary Evaluation Malnutrition Findings (Please click <Entered> for more info): Nutritional Asmnt/Malnutrition Start: 07/04/19 11: 29 Text: Status: Complete Freq: Protocol: Document 07/04/19 11:29 CARLOS EDUARDO (Rec: 07/04/19 11:33 CARLOS EDUARDO PETER-[id number]) Nutritional Asmnt/Malnutrition Patient General Information Nutritional Screening High Risk Diagnosis Psychosis Pertinent Medical Hx/Surgical Hx Psych Disorder, oral ulcer disease, COPD Subjective Information Pt is a 59-year-old male admitted on 07/03 d/t aggressiveness. RN, Zhang, stated Pt ate well this morning, 70% meal and seemed to be in a good mood. As Pt is underweight and has refused meals d/t psychosis in previous hospital visits, adding Ensure Enlive TID to encourage weight gain trending towards IBW. HT: 510 WT: 110 LB (50 kg) BMI: 15.79 (Underweight) GI: Not noted BM: Not Noted I/O: Not Noted Skin: Not noted Jhonathan: 17 Diet Order: Cardiac, chopped Estimated Energy Needs: ( Underweight, CBW) 7669-3737 kcals (30-35 kcals/ kg) 50-60g Pro (1.0-1.2 g/kg) 0479-0812 ml (35-40 ml/kg) Current Diet Order/ Nutrition Support Cardiac, chopped Pertinent Medications Maalox (PRN), Vitamin C, Colace, Ferrous Sulfate, MOM ( PRN), Theregran Pertinent Labs 07/03: Hgb/Hct 11.6/35.0, Na 132, BUN/Cr 27/1.1, Alb 3.6 Nutritional Hx/Data Height 1.78 m Height (Calculated Centimeters) 177.8 Current Weight (lbs) 49.895 kg Weight (Calculated Kilograms) 49.9 Weight (Calculated Grams) 62008.2 [place] Body Weight 166 LB (75.45kg) % [place] Body Weight 66 Body Mass Index (BMI) 15.7 Weight Status Underweight GI Symptoms Last BM Not noted Skin Integrity/Comment: Jhonathan: 17 Current %PO Fair (50-74%) Estimated Nutritional Goals BEE in Kcals: Using Current wt Calories/Kcals/Kg 30-35 Kcals Calculated 4343-2759 Protein: Using Current wt Protein g/k.0-1.2 Protein Calculated 50-60 Fluid: ml 6902-3737 ml (35-40 ml/kg) Nutritional Problem 1. Problem Problem Underweight Etiology r/t psychosis Signs/Symptoms: aeb Pt past behavior of refusing meals for consecutive days. Malnutrition Related to Morbid Obesity Malnutrition related to morbid obesity No Intervention/Recommendation Comments 1. Continue with Cardiac, chopped diet as ordered. 2. Add Ensure Enlive TID ( completed). Expected Outcomes/Goals Expected Outcomes/Goals 1. Continue with Cardiac, chopped diet as ordered. 2. Add Ensure Enlive TID ( completed). 3. PO intake to meet 75% of nutritional needs. 4. Monitor PO intake, wt, nutrition related labs, and skin integrity. 5. F/U as moderate risk in 3-5 days, 07/06-07/08
--- NOTE | 2019-07-08 15:51 | Progress Notes ---
DATE: 07/08/2019 Case was discussed with staff of the patient, reviewed records. The patient continues to be confused, easily agitated, irritable, continues to need redirection, labile and easily angered, but in general, the staff reports a bit more calm. He is sleeping better, eating better, has been compliant with the medication with no side effects, no sedation, no nausea, no extrapyramidal symptoms. We will continue outpatient group therapy, milieu therapy, adjust medication as needed. [facility]# [id number]
[2019-07-09] MEDS: Haloperidol Lactate Oral sol. 2 mg/mL Udc PO SCH ×3 (08:50→21:24)
[2019-07-09] MEDS: Ferrous Sulfate 325 MG TAB PO SCH (08:50)
[2019-07-09] MEDS: Multivitamin Tab PO SCH (08:50)
--- NOTE | 2019-07-09 12:36 | Internal Medicine Prog Note ---
Internal Medicine Subjective - Subjective Patient seen and examined:: with staff, chart reviewed Patient is:: awake, verbal, interactive, agitated, confused Per staff patient has:: no adverse event, no episodes of fall, poor appetite, confused, tolerating meds Internal Medicine Objective - Results Result Diagrams: 07/03/19 12:35 07/03/19 12:35 Recent Labs: Laboratory Last Values WBC 10.3 Th/cmm (4.8-10.8) 07/03/19 12:35 RBC 4.00 Mil/cmm (4.30-5.70) L 07/03/19 12:35 Hgb 11.6 gm/dL (12-16) L 07/03/19 12:35 Hct 35.0 % (41.0-60) L 07/03/19 12:35 MCV 87.6 fl (80-99) 07/03/19 12:35 MCH 28.9 pg (26.0-30.0) 07/03/19 12:35 MCHC Differential 33.0 pg (28.0-36.0) 07/03/19 12:35 RDW 15.7 % (11.5-20.0) 07/03/19 12:35 Plt Count 335 Th/cmm (150-400) 07/03/19 12:35 MPV 8.2 fl 07/03/19 12:35 Neutrophils % 63.9 % (40.0-80.0) 07/03/19 12:35 Lymphocytes % 21.7 % (20.0-50.0) 07/03/19 12:35 Monocytes % 7.4 % (2.0-10.0) 07/03/19 12:35 Eosinophils % 5.9 % (0.0-5.0) H 07/03/19 12:35 Basophils % 1.1 % (0.0-2.0) 07/03/19 12:35 Sodium 132 mEq/L (136-145) L 07/03/19 12:35 Potassium 4.5 mEq/L (3.5-5.1) 07/03/19 12:35 Chloride 102 mEq/L (98-107) 07/03/19 12:35 Carbon Dioxide 26.4 mEq/L (21.0-31.0) 07/03/19 12:35 Anion Gap 8.1 (7.0-16.0) 07/03/19 12:35 BUN 27 mg/dL (7-25) H 07/03/19 12:35 Creatinine 1.1 mg/dL (0.7-1.3) 07/03/19 12:35 Est GFR ( Amer) > 60.0 ml/min (>90) 07/03/19 12:35 Est GFR (Non-Af Amer) > 60.0 ml/min 07/03/19 12:35 BUN/Creatinine Ratio 24.5 07/03/19 12:35 Glucose 96 mg/dL (70-105) 07/03/19 12:35 Calcium 9.7 mg/dL (8.6-10.3) 07/03/19 12:35 Total Bilirubin 0.4 mg/dL (0.3-1.0) 07/03/19 12:35 AST 16 U/L (13-39) 07/03/19 12:35 ALT 13 U/L (7-52) 07/03/19 12:35 Alkaline Phosphatase 38 U/L (34-104) 07/03/19 12:35 Total Protein 6.4 gm/dL (6.0-8.3) 07/03/19 12:35 Albumin 3.6 gm/dL (4.2-5.5) L 07/03/19 12:35 Globulin 2.8 gm/dL 07/03/19 12:35 Albumin/Globulin Ratio 1.3 (1.0-1.8) 07/03/19 12:35 Triglycerides 86 mg/dL (<150) 07/03/19 12:35 Cholesterol 144 mg/dL (<200) 07/03/19 12:35 LDL Cholesterol Direct 81 mg/dL (75-193) 07/03/19 12:35 HDL Cholesterol 50 mg/dL (23-92) 07/03/19 12:35 [place] 1.18 mmol/L (0.5-1.0) H 07/03/19 12:35 - Physical Exam Vitals and I&O: Vital Signs Temp 97.7 F 07/09/19 06:14 Pulse 69 07/09/19 06:14 Resp 18 07/09/19 06:14 BP 97/64 07/09/19 06:14 Pulse Ox 98 07/09/19 06:14 Intake & Output 07/08/19 07/09/19 07/09/19 18:59 06:59 18:59 Intake Total 1200 Balance 1200 Weight (lbs) 50.802 kg Intake: Oral 1200 Other: # Bowel Movements 2 Weight Source Estimated Active Medications: Current Medications Acetaminophen (Tylenol) 650 mg PO Q6H PRN PRN Reason: Pain / Temp above 100 Stop: 09/01/19 14:24 Al Hydrox/Mg Hydrox/Simethicone (Maalox) 30 ml PO Q4H PRN PRN Reason: GI DISTRESS Stop: 09/01/19 14:24 Ascorbic Acid (Vitamin C) 500 mg PO DAILY [facility] Stop: 09/02/19 08:59 Last Admin: 07/09/19 08:50 Dose: 500 mg Clonidine HCl (Cgnmpybc-Lbt-0) 1 patch TD QTUE [facility] Stop: 09/02/19 08:59 Last Admin: 07/04/19 10:42 Dose: Not Given Docusate Sodium (Colace) 100 mg PO DAILY [facility] Stop: 09/02/19 08:59 Last Admin: 07/09/19 08:50 Dose: 100 mg Ferrous Sulfate (Iron) 325 mg PO DAILY [facility] Stop: 09/02/19 08:59 Last Admin: 07/09/19 08:50 Dose: 325 mg Haloperidol Lactate (Haldol) 3 mg PO TID [facility] Stop: 09/03/19 20:59 Last Admin: 07/09/19 08:50 Dose: 3 mg Lorazepam (Ativan) 0.5 mg PO Q6H PRN; Protocol PRN Reason: Agitation Stop: 09/01/19 14:24 Last Admin: 07/08/19 22:57 Dose: 0.5 mg Magnesium Hydroxide (Milk Of Magnesia) 30 ml PO HS PRN PRN Reason: Constipation Stop: 09/01/19 14:24 Multivitamins/Vitamin C (Theragran) 1 tab PO DAILY [facility] Stop: 09/02/19 08:59 Last Admin: 07/09/19 08:50 Dose: 1 tab Trazodone HCl (Desyrel) 50 mg PO HS [facility]; Protocol Stop: 09/01/19 20:59 Last Admin: 07/08/19 20:31 Dose: 50 mg General: demented, thin, appears older HEENT: NC/AT, PERRLA, EOMI Neck: Supple, No JVD, No thyromegaly, No LAD Lungs: CTAB Cardiovascular: RRR, Normal S1, Normal S2 Abdomen: soft, non-tender, thin, non-distended, positive bowel sound Extremities: excoriation, contracture Internal Medicine Assmt/Plan - Assessment Assessment: ASSESSMENT AND PLAN: 1. Hypertension. 2. Dehydration. 3. Renal insufficiency. 4. Thin built. 5. History of agitation and psych disorder. 6. Anemia. 7. Hyponatremia. 8. Low albumin. - Plan Plan: PLAN: Continue oxygen, bronchodilator treatments. We will provide the patient with adequate support with antihypertensive medication. We will monitor hemoglobin and hematocrit. We will review mes We will continue monitoring the patient closely. Nutritional Asmnt/Malnutr-PDOC - Dietary Evaluation Malnutrition Findings (Please click <Entered> for more info): Nutritional Asmnt/Malnutrition Start: 07/04/19 11: 29 Text: Status: Complete Freq: Protocol: Document 07/04/19 11:29 CARLOS EDUARDO (Rec: 07/04/19 11:33 CARLOS EDUARDO GREEN-[id number]) Nutritional Asmnt/Malnutrition Patient General Information Nutritional Screening High Risk Diagnosis Psychosis Pertinent Medical Hx/Surgical Hx Psych Disorder, oral ulcer disease, COPD Subjective Information Pt is a 59-year-old male admitted on 07/03 d/t aggressiveness. RNZhang, stated Pt ate well this morning, 70% meal and seemed to be in a good mood. As Pt is underweight and has refused meals d/t psychosis in previous hospital visits, adding Ensure Enlive TID to encourage weight gain trending towards IBW. HT: 510 WT: 110 LB (50 kg) BMI: 15.79 (Underweight) GI: Not noted BM: Not Noted I/O: Not Noted Skin: Not noted Jhonathan: 17 Diet Order: Cardiac, chopped Estimated Energy Needs: ( Underweight, CBW) 0246-4007 kcals (30-35 kcals/ kg) 50-60g Pro (1.0-1.2 g/kg) 3848-1696 ml (35-40 ml/kg) Current Diet Order/ Nutrition Support Cardiac, chopped Pertinent Medications Maalox (PRN), Vitamin C, Colace, Ferrous Sulfate, MOM ( PRN), Theregran Pertinent Labs 07/03: Hgb/Hct 11.6/35.0, Na 132, BUN/Cr 27/1.1, Alb 3.6 Nutritional Hx/Data Height 1.78 m Height (Calculated Centimeters) 177.8 Current Weight (lbs) 49.895 kg Weight (Calculated Kilograms) 49.9 Weight (Calculated Grams) 92495.2 [place] Body Weight 166 LB (75.45kg) % [place] Body Weight 66 Body Mass Index (BMI) 15.7 Weight Status Underweight GI Symptoms Last BM Not noted Skin Integrity/Comment: Jhonathan: 17 Current %PO Fair (50-74%) Estimated Nutritional Goals BEE in Kcals: Using Current wt Calories/Kcals/Kg 30-35 Kcals Calculated 6812-4187 Protein: Using Current wt Protein g/k.0-1.2 Protein Calculated 50-60 Fluid: ml 9139-2151 ml (35-40 ml/kg) Nutritional Problem 1. Problem Problem Underweight Etiology r/t psychosis Signs/Symptoms: aeb Pt past behavior of refusing meals for consecutive days. Malnutrition Related to Morbid Obesity Malnutrition related to morbid obesity No Intervention/Recommendation Comments 1. Continue with Cardiac, chopped diet as ordered. 2. Add Ensure Enlive TID ( completed). Expected Outcomes/Goals Expected Outcomes/Goals 1. Continue with Cardiac, chopped diet as ordered. 2. Add Ensure Enlive TID ( completed). 3. PO intake to meet 75% of nutritional needs. 4. Monitor PO intake, wt, nutrition related labs, and skin integrity. 5. F/U as moderate risk in 3-5 days, 07/06-07/08
--- NOTE | 2019-07-09 14:53 | Progress Notes ---
DATE: 07/09/2019 Case was discussed with staff of the patient, reviewed records. The patient gets, easily agitated, irritable. Continues to have poor insight, unable to make safe plan for self-care, unpredictable, impulsive, needing redirection. He used to get upset. No side effects of the medication, no sedation, no nausea. We will continue outpatient group therapy, milieu therapy, and adjust medication as needed. [facility]# [id number] [facility]
[2019-07-10] MEDS: Haloperidol Lactate Oral sol. 2 mg/mL Udc PO SCH ×3 (08:47→20:41)
[2019-07-10] MEDS: Multivitamin Tab PO SCH (08:47)
[2019-07-10] MEDS: Ferrous Sulfate 325 MG TAB PO SCH (08:48)
--- NOTE | 2019-07-10 12:29 | Internal Medicine Prog Note ---
Internal Medicine Subjective - Subjective Patient seen and examined:: with staff, chart reviewed, other (family concerned re pt not able to walk, per pt has not been able to walk since 1960) Patient is:: awake, verbal, interactive, agitated, confused Per staff patient has:: no adverse event, no episodes of fall, poor appetite, confused, tolerating meds Internal Medicine Objective - Results Result Diagrams: 07/03/19 12:35 07/03/19 12:35 Recent Labs: Laboratory Last Values WBC 10.3 Th/cmm (4.8-10.8) 07/03/19 12:35 RBC 4.00 Mil/cmm (4.30-5.70) L 07/03/19 12:35 Hgb 11.6 gm/dL (12-16) L 07/03/19 12:35 Hct 35.0 % (41.0-60) L 07/03/19 12:35 MCV 87.6 fl (80-99) 07/03/19 12:35 MCH 28.9 pg (26.0-30.0) 07/03/19 12:35 MCHC Differential 33.0 pg (28.0-36.0) 07/03/19 12:35 RDW 15.7 % (11.5-20.0) 07/03/19 12:35 Plt Count 335 Th/cmm (150-400) 07/03/19 12:35 MPV 8.2 fl 07/03/19 12:35 Neutrophils % 63.9 % (40.0-80.0) 07/03/19 12:35 Lymphocytes % 21.7 % (20.0-50.0) 07/03/19 12:35 Monocytes % 7.4 % (2.0-10.0) 07/03/19 12:35 Eosinophils % 5.9 % (0.0-5.0) H 07/03/19 12:35 Basophils % 1.1 % (0.0-2.0) 07/03/19 12:35 Sodium 132 mEq/L (136-145) L 07/03/19 12:35 Potassium 4.5 mEq/L (3.5-5.1) 07/03/19 12:35 Chloride 102 mEq/L (98-107) 07/03/19 12:35 Carbon Dioxide 26.4 mEq/L (21.0-31.0) 07/03/19 12:35 Anion Gap 8.1 (7.0-16.0) 07/03/19 12:35 BUN 27 mg/dL (7-25) H 07/03/19 12:35 Creatinine 1.1 mg/dL (0.7-1.3) 07/03/19 12:35 Est GFR ( Amer) > 60.0 ml/min (>90) 07/03/19 12:35 Est GFR (Non-Af Amer) > 60.0 ml/min 07/03/19 12:35 BUN/Creatinine Ratio 24.5 07/03/19 12:35 Glucose 96 mg/dL (70-105) 07/03/19 12:35 Calcium 9.7 mg/dL (8.6-10.3) 07/03/19 12:35 Total Bilirubin 0.4 mg/dL (0.3-1.0) 07/03/19 12:35 AST 16 U/L (13-39) 07/03/19 12:35 ALT 13 U/L (7-52) 07/03/19 12:35 Alkaline Phosphatase 38 U/L (34-104) 07/03/19 12:35 Total Protein 6.4 gm/dL (6.0-8.3) 07/03/19 12:35 Albumin 3.6 gm/dL (4.2-5.5) L 07/03/19 12:35 Globulin 2.8 gm/dL 07/03/19 12:35 Albumin/Globulin Ratio 1.3 (1.0-1.8) 07/03/19 12:35 Triglycerides 86 mg/dL (<150) 07/03/19 12:35 Cholesterol 144 mg/dL (<200) 07/03/19 12:35 LDL Cholesterol Direct 81 mg/dL (75-193) 07/03/19 12:35 HDL Cholesterol 50 mg/dL (23-92) 07/03/19 12:35 [place] 1.18 mmol/L (0.5-1.0) H 07/03/19 12:35 - Physical Exam Vitals and I&O: Vital Signs Temp 97.5 F 07/10/19 06:24 Pulse 76 07/10/19 06:24 Resp 18 07/10/19 06:24 BP 116/73 07/10/19 06:24 Pulse Ox 98 07/10/19 06:24 Intake & Output 07/09/19 07/10/19 07/10/19 18:59 06:59 18:59 Intake Total 950 240 Balance 950 240 Weight (lbs) 55.021 kg 54.431 kg Intake: Oral 950 240 Other: # Voids 3 3 # Bowel Movements 0 0 Weight Source Bedscale Bedscale Active Medications: Current Medications Acetaminophen (Tylenol) 650 mg PO Q6H PRN PRN Reason: Pain / Temp above 100 Stop: 09/01/19 14:24 Al Hydrox/Mg Hydrox/Simethicone (Maalox) 30 ml PO Q4H PRN PRN Reason: GI DISTRESS Stop: 09/01/19 14:24 Ascorbic Acid (Vitamin C) 500 mg PO DAILY [facility] Stop: 09/02/19 08:59 Last Admin: 07/10/19 08:47 Dose: 500 mg Clonidine HCl (Ijomcayr-Oxs-6) 1 patch TD QTUE [facility] Stop: 09/02/19 08:59 Last Admin: 07/04/19 10:42 Dose: Not Given Docusate Sodium (Colace) 100 mg PO DAILY [facility] Stop: 09/02/19 08:59 Last Admin: 07/10/19 08:47 Dose: 100 mg Ferrous Sulfate (Iron) 325 mg PO DAILY [facility] Stop: 09/02/19 08:59 Last Admin: 07/10/19 08:48 Dose: 325 mg Haloperidol Lactate (Haldol) 3 mg PO TID [facility] Stop: 09/03/19 20:59 Last Admin: 07/10/19 08:47 Dose: 3 mg Lorazepam (Ativan) 0.5 mg PO Q6H PRN; Protocol PRN Reason: Agitation Stop: 09/01/19 14:24 Last Admin: 07/09/19 23:08 Dose: 0.5 mg Magnesium Hydroxide (Milk Of Magnesia) 30 ml PO HS PRN PRN Reason: Constipation Stop: 09/01/19 14:24 Multivitamins/Vitamin C (Theragran) 1 tab PO DAILY [facility] Stop: 09/02/19 08:59 Last Admin: 07/10/19 08:47 Dose: 1 tab Trazodone HCl (Desyrel) 50 mg PO HS [facility]; Protocol Stop: 09/01/19 20:59 Last Admin: 07/09/19 21:24 Dose: 50 mg General: demented, thin, appears older HEENT: NC/AT, PERRLA, EOMI Neck: Supple, No JVD, No thyromegaly, No LAD Lungs: CTAB Cardiovascular: RRR, Normal S1, Normal S2 Abdomen: soft, non-tender, thin, non-distended, positive bowel sound Extremities: excoriation, contracture Internal Medicine Assmt/Plan - Assessment Assessment: ASSESSMENT AND PLAN: 1. Hypertension. 2. Dehydration. 3. Renal insufficiency. 4. Thin built. 5. History of agitation and psych disorder. 6. Anemia. 7. Hyponatremia. 8. Low albumin. - Plan Plan: PLAN: Continue oxygen, bronchodilator treatments. We will provide the patient with adequate support with antihypertensive medication. We will monitor hemoglobin and hematocrit. We will review mes We will continue monitoring the patient closely. will refer to PT for eval Nutritional Asmnt/Malnutr-PDOC - Dietary Evaluation Malnutrition Findings (Please click <Entered> for more info): Nutritional Asmnt/Malnutrition Start: 07/04/19 11: 29 Text: Status: Complete Freq: Protocol: Document 07/04/19 11:29 CARLOS EDUARDO (Rec: 07/04/19 11:33 CARLOS EDUARDO [email or web address]) Nutritional Asmnt/Malnutrition Patient General Information Nutritional Screening High Risk Diagnosis Psychosis Pertinent Medical Hx/Surgical Hx Psych Disorder, oral ulcer disease, COPD Subjective Information Pt is a 59-year-old male admitted on 07/03 d/t aggressiveness. RN, Zhang, stated Pt ate well this morning, 70% meal and seemed to be in a good mood. As Pt is underweight and has refused meals d/t psychosis in previous hospital visits, adding Ensure Enlive TID to encourage weight gain trending towards IBW. HT: 510 WT: 110 LB (50 kg) BMI: 15.79 (Underweight) GI: Not noted BM: Not Noted I/O: Not Noted Skin: Not noted Jhonathan: 17 Diet Order: Cardiac, chopped Estimated Energy Needs: ( Underweight, CBW) 1851-9938 kcals (30-35 kcals/ kg) 50-60g Pro (1.0-1.2 g/kg) 1418-0230 ml (35-40 ml/kg) Current Diet Order/ Nutrition Support Cardiac, chopped Pertinent Medications Maalox (PRN), Vitamin C, Colace, Ferrous Sulfate, MOM ( PRN), Theregran Pertinent Labs 07/03: Hgb/Hct 11.6/35.0, Na 132, BUN/Cr 27/1.1, Alb 3.6 Nutritional Hx/Data Height 1.78 m Height (Calculated Centimeters) 177.8 Current Weight (lbs) 49.895 kg Weight (Calculated Kilograms) 49.9 Weight (Calculated Grams) 30639.2 [place] Body Weight 166 LB (75.45kg) % [place] Body Weight 66 Body Mass Index (BMI) 15.7 Weight Status Underweight GI Symptoms Last BM Not noted Skin Integrity/Comment: Jhonathan: 17 Current %PO Fair (50-74%) Estimated Nutritional Goals BEE in Kcals: Using Current wt Calories/Kcals/Kg 30-35 Kcals Calculated 9308-2884 Protein: Using Current wt Protein g/k.0-1.2 Protein Calculated 50-60 Fluid: ml 6910-5753 ml (35-40 ml/kg) Nutritional Problem 1. Problem Problem Underweight Etiology r/t psychosis Signs/Symptoms: aeb Pt past behavior of refusing meals for consecutive days. Malnutrition Related to Morbid Obesity Malnutrition related to morbid obesity No Intervention/Recommendation Comments 1. Continue with Cardiac, chopped diet as ordered. 2. Add Ensure Enlive TID ( completed). Expected Outcomes/Goals Expected Outcomes/Goals 1. Continue with Cardiac, chopped diet as ordered. 2. Add Ensure Enlive TID ( completed). 3. PO intake to meet 75% of nutritional needs. 4. Monitor PO intake, wt, nutrition related labs, and skin integrity. 5. F/U as moderate risk in 3-5 days, 07/06-07/08
--- NOTE | 2019-07-11 01:28 | Progress Notes ---
DATE: 07/10/2019 SUBJECTIVE: The patient remains unpredictable, yelling, screaming. "No, no." "Out" "Get the fuck out." Angry, upset, impulsive, unpredictable. On a positive note, he is taking his medications, no side effects, mostly keeps to self, needing a higher level of prompting, redirection, ongoing safety concerns. PLAN: We will continue to monitor. Medications were noted. [facility]# [id number]
[2019-07-11] MEDS: Ferrous Sulfate 325 MG TAB PO SCH (09:38)
[2019-07-11] MEDS: Multivitamin Tab PO SCH (09:38)
[2019-07-11] MEDS: Haloperidol Lactate Oral sol. 2 mg/mL Udc PO SCH ×3 (09:38→20:10)
[2019-07-11] MEDS: cloNIDine 0.1 mg/24 hr Tdm TD SCH (09:57)
--- NOTE | 2019-07-11 12:36 | Internal Medicine Prog Note ---
Internal Medicine Subjective - Subjective Patient seen and examined:: with staff, chart reviewed Patient is:: awake, verbal, interactive, agitated, confused Per staff patient has:: no adverse event, no episodes of fall, poor appetite, confused, tolerating meds Internal Medicine Objective - Results Result Diagrams: 07/03/19 12:35 07/03/19 12:35 Recent Labs: Laboratory Last Values WBC 10.3 Th/cmm (4.8-10.8) 07/03/19 12:35 RBC 4.00 Mil/cmm (4.30-5.70) L 07/03/19 12:35 Hgb 11.6 gm/dL (12-16) L 07/03/19 12:35 Hct 35.0 % (41.0-60) L 07/03/19 12:35 MCV 87.6 fl (80-99) 07/03/19 12:35 MCH 28.9 pg (26.0-30.0) 07/03/19 12:35 MCHC Differential 33.0 pg (28.0-36.0) 07/03/19 12:35 RDW 15.7 % (11.5-20.0) 07/03/19 12:35 Plt Count 335 Th/cmm (150-400) 07/03/19 12:35 MPV 8.2 fl 07/03/19 12:35 Neutrophils % 63.9 % (40.0-80.0) 07/03/19 12:35 Lymphocytes % 21.7 % (20.0-50.0) 07/03/19 12:35 Monocytes % 7.4 % (2.0-10.0) 07/03/19 12:35 Eosinophils % 5.9 % (0.0-5.0) H 07/03/19 12:35 Basophils % 1.1 % (0.0-2.0) 07/03/19 12:35 Sodium 132 mEq/L (136-145) L 07/03/19 12:35 Potassium 4.5 mEq/L (3.5-5.1) 07/03/19 12:35 Chloride 102 mEq/L (98-107) 07/03/19 12:35 Carbon Dioxide 26.4 mEq/L (21.0-31.0) 07/03/19 12:35 Anion Gap 8.1 (7.0-16.0) 07/03/19 12:35 BUN 27 mg/dL (7-25) H 07/03/19 12:35 Creatinine 1.1 mg/dL (0.7-1.3) 07/03/19 12:35 Est GFR ( Amer) > 60.0 ml/min (>90) 07/03/19 12:35 Est GFR (Non-Af Amer) > 60.0 ml/min 07/03/19 12:35 BUN/Creatinine Ratio 24.5 07/03/19 12:35 Glucose 96 mg/dL (70-105) 07/03/19 12:35 Calcium 9.7 mg/dL (8.6-10.3) 07/03/19 12:35 Total Bilirubin 0.4 mg/dL (0.3-1.0) 07/03/19 12:35 AST 16 U/L (13-39) 07/03/19 12:35 ALT 13 U/L (7-52) 07/03/19 12:35 Alkaline Phosphatase 38 U/L (34-104) 07/03/19 12:35 Total Protein 6.4 gm/dL (6.0-8.3) 07/03/19 12:35 Albumin 3.6 gm/dL (4.2-5.5) L 07/03/19 12:35 Globulin 2.8 gm/dL 07/03/19 12:35 Albumin/Globulin Ratio 1.3 (1.0-1.8) 07/03/19 12:35 Triglycerides 86 mg/dL (<150) 07/03/19 12:35 Cholesterol 144 mg/dL (<200) 07/03/19 12:35 LDL Cholesterol Direct 81 mg/dL (75-193) 07/03/19 12:35 HDL Cholesterol 50 mg/dL (23-92) 07/03/19 12:35 [place] 1.18 mmol/L (0.5-1.0) H 07/03/19 12:35 - Physical Exam Vitals and I&O: Vital Signs Temp 98.5 F 07/11/19 05:43 Pulse 95 07/11/19 09:57 Resp 20 07/11/19 05:43 BP 104/64 07/11/19 09:57 Pulse Ox 99 07/11/19 05:43 Intake & Output 07/10/19 07/11/19 07/11/19 18:59 06:59 18:59 Intake Total 1400 120 Balance 1400 120 Weight (lbs) 56.699 kg 56.245 kg Intake: Oral 1400 120 Other: # Voids 4 4 # Bowel Movements 1 0 Weight Source Bedscale Bedscale Active Medications: Current Medications Acetaminophen (Tylenol) 650 mg PO Q6H PRN PRN Reason: Pain / Temp above 100 Stop: 09/01/19 14:24 Al Hydrox/Mg Hydrox/Simethicone (Maalox) 30 ml PO Q4H PRN PRN Reason: GI DISTRESS Stop: 09/01/19 14:24 Ascorbic Acid (Vitamin C) 500 mg PO DAILY [facility] Stop: 09/02/19 08:59 Last Admin: 07/11/19 09:38 Dose: 500 mg Clonidine HCl (Bhvjpkzt-Oco-9) 1 patch TD QTUE [facility] Stop: 09/02/19 08:59 Last Admin: 07/11/19 09:57 Dose: Not Given Docusate Sodium (Colace) 100 mg PO DAILY [facility] Stop: 09/02/19 08:59 Last Admin: 07/11/19 09:38 Dose: 100 mg Ferrous Sulfate (Iron) 325 mg PO DAILY [facility] Stop: 09/02/19 08:59 Last Admin: 07/11/19 09:38 Dose: 325 mg Haloperidol Lactate (Haldol) 3 mg PO TID [facility] Stop: 09/03/19 20:59 Last Admin: 07/11/19 09:38 Dose: 3 mg Lorazepam (Ativan) 0.5 mg PO Q6H PRN; Protocol PRN Reason: Agitation Stop: 09/01/19 14:24 Last Admin: 07/09/19 23:08 Dose: 0.5 mg Magnesium Hydroxide (Milk Of Magnesia) 30 ml PO HS PRN PRN Reason: Constipation Stop: 09/01/19 14:24 Multivitamins/Vitamin C (Theragran) 1 tab PO DAILY [facility] Stop: 09/02/19 08:59 Last Admin: 07/11/19 09:38 Dose: 1 tab Trazodone HCl (Desyrel) 50 mg PO HS [facility]; Protocol Stop: 09/01/19 20:59 Last Admin: 07/10/19 20:41 Dose: 50 mg General: demented, thin, appears older HEENT: NC/AT, PERRLA, EOMI Neck: Supple, No JVD, No thyromegaly, No LAD Lungs: CTAB Cardiovascular: RRR, Normal S1, Normal S2 Abdomen: soft, non-tender, thin, non-distended, positive bowel sound Extremities: excoriation, contracture Internal Medicine Assmt/Plan - Assessment Assessment: ASSESSMENT AND PLAN: 1. Hypertension. 2. Dehydration. 3. Renal insufficiency. 4. Thin built. 5. History of agitation and psych disorder. 6. Anemia. 7. Hyponatremia. 8. Low albumin. - Plan Plan: PLAN: Continue oxygen, bronchodilator treatments. We will provide the patient with adequate support with antihypertensive medication. We will monitor hemoglobin and hematocrit. We will review meds We will continue monitoring the patient closely. will refer to PT for eval Nutritional Asmnt/Malnutr-PDOC - Dietary Evaluation Malnutrition Findings (Please click <Entered> for more info): Nutritional Asmnt/Malnutrition Start: 07/04/19 11: 29 Text: Status: Complete Freq: Protocol: Document 07/04/19 11:29 CARLOS EDUARDO (Rec: 07/04/19 11:33 CARLOS EDUARDO PETER-[id number]) Nutritional Asmnt/Malnutrition Patient General Information Nutritional Screening High Risk Diagnosis Psychosis Pertinent Medical Hx/Surgical Hx Psych Disorder, oral ulcer disease, COPD Subjective Information Pt is a 59-year-old male admitted on 07/03 d/t aggressiveness. RN, Zhang, stated Pt ate well this morning, 70% meal and seemed to be in a good mood. As Pt is underweight and has refused meals d/t psychosis in previous hospital visits, adding Ensure Enlive TID to encourage weight gain trending towards IBW. HT: 510 WT: 110 LB (50 kg) BMI: 15.79 (Underweight) GI: Not noted BM: Not Noted I/O: Not Noted Skin: Not noted Jhonathan: 17 Diet Order: Cardiac, chopped Estimated Energy Needs: ( Underweight, CBW) 2672-4987 kcals (30-35 kcals/ kg) 50-60g Pro (1.0-1.2 g/kg) 2076-4741 ml (35-40 ml/kg) Current Diet Order/ Nutrition Support Cardiac, chopped Pertinent Medications Maalox (PRN), Vitamin C, Colace, Ferrous Sulfate, MOM ( PRN), Theregran Pertinent Labs 07/03: Hgb/Hct 11.6/35.0, Na 132, BUN/Cr 27/1.1, Alb 3.6 Nutritional Hx/Data Height 1.78 m Height (Calculated Centimeters) 177.8 Current Weight (lbs) 49.895 kg Weight (Calculated Kilograms) 49.9 Weight (Calculated Grams) 27463.2 [place] Body Weight 166 LB (75.45kg) % [place] Body Weight 66 Body Mass Index (BMI) 15.7 Weight Status Underweight GI Symptoms Last BM Not noted Skin Integrity/Comment: Jhonathan: 17 Current %PO Fair (50-74%) Estimated Nutritional Goals BEE in Kcals: Using Current wt Calories/Kcals/Kg 30-35 Kcals Calculated 6069-2030 Protein: Using Current wt Protein g/k.0-1.2 Protein Calculated 50-60 Fluid: ml 2496-4242 ml (35-40 ml/kg) Nutritional Problem 1. Problem Problem Underweight Etiology r/t psychosis Signs/Symptoms: aeb Pt past behavior of refusing meals for consecutive days. Malnutrition Related to Morbid Obesity Malnutrition related to morbid obesity No Intervention/Recommendation Comments 1. Continue with Cardiac, chopped diet as ordered. 2. Add Ensure Enlive TID ( completed). Expected Outcomes/Goals Expected Outcomes/Goals 1. Continue with Cardiac, chopped diet as ordered. 2. Add Ensure Enlive TID ( completed). 3. PO intake to meet 75% of nutritional needs. 4. Monitor PO intake, wt, nutrition related labs, and skin integrity. 5. F/U as moderate risk in 3-5 days, 07/06-07/08
--- NOTE | 2019-07-12 01:23 | Progress Notes ---
DATE: 07/11/2019 SUBJECTIVE: The patient is confused, disoriented. He is calmer today, just stating, "I'm taking care of myself," I'm taking care of myself," "I'm taking care of myself," fewer outbursts, still very confused, disoriented, disengaged. Mental stability seems to be better, but he does remain impulsive. It is unclear if he was going to have any outbursts. Medications were reviewed per Soft Sugar Supervisor. The patient is going to [facility]. JOB# [id number]
[2019-07-12] MEDS: Ferrous Sulfate 325 MG TAB PO SCH (09:13)
[2019-07-12] MEDS: Multivitamin Tab PO SCH (09:13)
[2019-07-12] MEDS: Haloperidol Lactate Oral sol. 2 mg/mL Udc PO SCH ×3 (09:14→20:52)
--- NOTE | 2019-07-12 12:19 | Internal Medicine Prog Note ---
Internal Medicine Subjective - Subjective Patient seen and examined:: with staff, chart reviewed Patient is:: awake, verbal, interactive, agitated, confused Per staff patient has:: no adverse event, no episodes of fall, poor appetite, confused, tolerating meds Internal Medicine Objective - Results Result Diagrams: 07/03/19 12:35 07/03/19 12:35 Recent Labs: Laboratory Last Values WBC 10.3 Th/cmm (4.8-10.8) 07/03/19 12:35 RBC 4.00 Mil/cmm (4.30-5.70) L 07/03/19 12:35 Hgb 11.6 gm/dL (12-16) L 07/03/19 12:35 Hct 35.0 % (41.0-60) L 07/03/19 12:35 MCV 87.6 fl (80-99) 07/03/19 12:35 MCH 28.9 pg (26.0-30.0) 07/03/19 12:35 MCHC Differential 33.0 pg (28.0-36.0) 07/03/19 12:35 RDW 15.7 % (11.5-20.0) 07/03/19 12:35 Plt Count 335 Th/cmm (150-400) 07/03/19 12:35 MPV 8.2 fl 07/03/19 12:35 Neutrophils % 63.9 % (40.0-80.0) 07/03/19 12:35 Lymphocytes % 21.7 % (20.0-50.0) 07/03/19 12:35 Monocytes % 7.4 % (2.0-10.0) 07/03/19 12:35 Eosinophils % 5.9 % (0.0-5.0) H 07/03/19 12:35 Basophils % 1.1 % (0.0-2.0) 07/03/19 12:35 Sodium 132 mEq/L (136-145) L 07/03/19 12:35 Potassium 4.5 mEq/L (3.5-5.1) 07/03/19 12:35 Chloride 102 mEq/L (98-107) 07/03/19 12:35 Carbon Dioxide 26.4 mEq/L (21.0-31.0) 07/03/19 12:35 Anion Gap 8.1 (7.0-16.0) 07/03/19 12:35 BUN 27 mg/dL (7-25) H 07/03/19 12:35 Creatinine 1.1 mg/dL (0.7-1.3) 07/03/19 12:35 Est GFR ( Amer) > 60.0 ml/min (>90) 07/03/19 12:35 Est GFR (Non-Af Amer) > 60.0 ml/min 07/03/19 12:35 BUN/Creatinine Ratio 24.5 07/03/19 12:35 Glucose 96 mg/dL (70-105) 07/03/19 12:35 Calcium 9.7 mg/dL (8.6-10.3) 07/03/19 12:35 Total Bilirubin 0.4 mg/dL (0.3-1.0) 07/03/19 12:35 AST 16 U/L (13-39) 07/03/19 12:35 ALT 13 U/L (7-52) 07/03/19 12:35 Alkaline Phosphatase 38 U/L (34-104) 07/03/19 12:35 Total Protein 6.4 gm/dL (6.0-8.3) 07/03/19 12:35 Albumin 3.6 gm/dL (4.2-5.5) L 07/03/19 12:35 Globulin 2.8 gm/dL 07/03/19 12:35 Albumin/Globulin Ratio 1.3 (1.0-1.8) 07/03/19 12:35 Triglycerides 86 mg/dL (<150) 07/03/19 12:35 Cholesterol 144 mg/dL (<200) 07/03/19 12:35 LDL Cholesterol Direct 81 mg/dL (75-193) 07/03/19 12:35 HDL Cholesterol 50 mg/dL (23-92) 07/03/19 12:35 [place] 1.18 mmol/L (0.5-1.0) H 07/03/19 12:35 - Physical Exam Vitals and I&O: Vital Signs Temp 97.3 F 07/12/19 06:25 Pulse 72 07/12/19 06:25 Resp 18 07/12/19 06:25 BP 111/72 07/12/19 06:25 Pulse Ox 98 07/12/19 06:25 Intake & Output 07/11/19 07/12/19 07/12/19 18:59 06:59 18:59 Intake Total 120 Balance 120 Weight (lbs) 56.245 kg Intake: Oral 120 Other: # Voids 3 Weight Source Bedscale Active Medications: Current Medications Acetaminophen (Tylenol) 650 mg PO Q6H PRN PRN Reason: Pain / Temp above 100 Stop: 09/01/19 14:24 Al Hydrox/Mg Hydrox/Simethicone (Maalox) 30 ml PO Q4H PRN PRN Reason: GI DISTRESS Stop: 09/01/19 14:24 Ascorbic Acid (Vitamin C) 500 mg PO DAILY [facility] Stop: 09/02/19 08:59 Last Admin: 07/12/19 09:13 Dose: 500 mg Clonidine HCl (Syevzdhc-Vsn-1) 1 patch TD QTUE [facility] Stop: 09/02/19 08:59 Last Admin: 07/11/19 09:57 Dose: Not Given Docusate Sodium (Colace) 100 mg PO DAILY [facility] Stop: 09/02/19 08:59 Last Admin: 07/12/19 09:13 Dose: 100 mg Ferrous Sulfate (Iron) 325 mg PO DAILY [facility] Stop: 09/02/19 08:59 Last Admin: 07/12/19 09:13 Dose: 325 mg Haloperidol Lactate (Haldol) 3 mg PO TID [facility] Stop: 09/03/19 20:59 Last Admin: 07/12/19 09:14 Dose: 3 mg Lorazepam (Ativan) 0.5 mg PO Q6H PRN; Protocol PRN Reason: Agitation Stop: 09/01/19 14:24 Last Admin: 07/09/19 23:08 Dose: 0.5 mg Magnesium Hydroxide (Milk Of Magnesia) 30 ml PO HS PRN PRN Reason: Constipation Stop: 09/01/19 14:24 Multivitamins/Vitamin C (Theragran) 1 tab PO DAILY [facility] Stop: 09/02/19 08:59 Last Admin: 07/12/19 09:13 Dose: 1 tab Trazodone HCl (Desyrel) 50 mg PO HS [facility]; Protocol Stop: 09/01/19 20:59 Last Admin: 07/11/19 20:09 Dose: 50 mg General: demented, thin, appears older HEENT: NC/AT, PERRLA, EOMI Neck: Supple, No JVD, No thyromegaly, No LAD Lungs: CTAB Cardiovascular: RRR, Normal S1, Normal S2 Abdomen: soft, non-tender, thin, non-distended, positive bowel sound Extremities: excoriation, contracture Internal Medicine Assmt/Plan - Assessment Assessment: ASSESSMENT AND PLAN: 1. Hypertension. 2. Dehydration. 3. Renal insufficiency. 4. Thin built. 5. History of agitation and psych disorder. 6. Anemia. 7. Hyponatremia. 8. Low albumin. - Plan Plan: PLAN: Continue oxygen, bronchodilator treatments. We will provide the patient with adequate support with antihypertensive medication. We will monitor hemoglobin and hematocrit. We will review meds We will continue monitoring the patient closely. will refer to PT for eval Nutritional Asmnt/Malnutr-PDOC - Dietary Evaluation Malnutrition Findings (Please click <Entered> for more info): Nutritional Asmnt/Malnutrition Start: 07/04/19 11: 29 Text: Status: Complete Freq: Protocol: Document 07/04/19 11:29 CARLOS EDUARDO (Rec: 07/04/19 11:33 CARLOS EDUARDO [id number]) Nutritional Asmnt/Malnutrition Patient General Information Nutritional Screening High Risk Diagnosis Psychosis Pertinent Medical Hx/Surgical Hx Psych Disorder, oral ulcer disease, COPD Subjective Information Pt is a 59-year-old male admitted on 07/03 d/t aggressiveness. RN, Zhang, stated Pt ate well this morning, 70% meal and seemed to be in a good mood. As Pt is underweight and has refused meals d/t psychosis in previous hospital visits, adding Ensure Enlive TID to encourage weight gain trending towards IBW. HT: 510 WT: 110 LB (50 kg) BMI: 15.79 (Underweight) GI: Not noted BM: Not Noted I/O: Not Noted Skin: Not noted Jhonathan: 17 Diet Order: Cardiac, chopped Estimated Energy Needs: ( Underweight, CBW) 1969-5638 kcals (30-35 kcals/ kg) 50-60g Pro (1.0-1.2 g/kg) 4391-8172 ml (35-40 ml/kg) Current Diet Order/ Nutrition Support Cardiac, chopped Pertinent Medications Maalox (PRN), Vitamin C, Colace, Ferrous Sulfate, MOM ( PRN), Theregran Pertinent Labs 07/03: Hgb/Hct 11.6/35.0, Na 132, BUN/Cr 27/1.1, Alb 3.6 Nutritional Hx/Data Height 1.78 m Height (Calculated Centimeters) 177.8 Current Weight (lbs) 49.895 kg Weight (Calculated Kilograms) 49.9 Weight (Calculated Grams) 93068.2 Herrick Body Weight 166 LB (75.45kg) % Herrick Body Weight 66 Body Mass Index (BMI) 15.7 Weight Status Underweight GI Symptoms Last BM Not noted Skin Integrity/Comment: Jhonathan: 17 Current %PO Fair (50-74%) Estimated Nutritional Goals BEE in Kcals: Using Current wt Calories/Kcals/Kg 30-35 Kcals Calculated 5909-6868 Protein: Using Current wt Protein g/k.0-1.2 Protein Calculated 50-60 Fluid: ml 1653-9183 ml (35-40 ml/kg) Nutritional Problem 1. Problem Problem Underweight Etiology r/t psychosis Signs/Symptoms: aeb Pt past behavior of refusing meals for consecutive days. Malnutrition Related to Morbid Obesity Malnutrition related to morbid obesity No Intervention/Recommendation Comments 1. Continue with Cardiac, chopped diet as ordered. 2. Add Ensure Enlive TID ( completed). Expected Outcomes/Goals Expected Outcomes/Goals 1. Continue with Cardiac, chopped diet as ordered. 2. Add Ensure Enlive TID ( completed). 3. PO intake to meet 75% of nutritional needs. 4. Monitor PO intake, wt, nutrition related labs, and skin integrity. 5. F/U as moderate risk in 3-5 days, 07/06-07/08
--- NOTE | 2019-07-12 21:34 | Progress Notes ---
DATE: 07/12/2019 SUBJECTIVE: The patient was seen, chart reviewed, discussed with staff. The patient in the hospital, still bizarre, stating, "no, no, no" "no, no, no" "you know my doctor" "you know my doctor." Confused, disoriented, but generally calmer, still gets upset, angry at times, lashes out at staff at times, bizarre symptoms, ideations. ASSESSMENT: The patient remains bizarre, ongoing behavioral disturbances, still impulsive, unpredictable. PLAN: We will continue to monitor. The patient is doing somewhat better. Seems to be doing better with increased dose of Haldol. [facility]# [id number]
[2019-07-13] MEDS: Haloperidol Lactate Oral sol. 2 mg/mL Udc PO SCH ×3 (09:03→20:22)
[2019-07-13] MEDS: Multivitamin Tab PO SCH (09:03)
[2019-07-13] MEDS: Ferrous Sulfate 325 MG TAB PO SCH (09:03)
--- NOTE | 2019-07-13 12:26 | Internal Medicine Prog Note ---
Internal Medicine Subjective - Subjective Patient seen and examined:: with staff, chart reviewed Patient is:: awake, verbal, interactive, agitated, confused Per staff patient has:: no adverse event, no episodes of fall, poor appetite, confused, tolerating meds Internal Medicine Objective - Results Result Diagrams: 07/03/19 12:35 07/03/19 12:35 Recent Labs: Laboratory Last Values WBC 10.3 Th/cmm (4.8-10.8) 07/03/19 12:35 RBC 4.00 Mil/cmm (4.30-5.70) L 07/03/19 12:35 Hgb 11.6 gm/dL (12-16) L 07/03/19 12:35 Hct 35.0 % (41.0-60) L 07/03/19 12:35 MCV 87.6 fl (80-99) 07/03/19 12:35 MCH 28.9 pg (26.0-30.0) 07/03/19 12:35 MCHC Differential 33.0 pg (28.0-36.0) 07/03/19 12:35 RDW 15.7 % (11.5-20.0) 07/03/19 12:35 Plt Count 335 Th/cmm (150-400) 07/03/19 12:35 MPV 8.2 fl 07/03/19 12:35 Neutrophils % 63.9 % (40.0-80.0) 07/03/19 12:35 Lymphocytes % 21.7 % (20.0-50.0) 07/03/19 12:35 Monocytes % 7.4 % (2.0-10.0) 07/03/19 12:35 Eosinophils % 5.9 % (0.0-5.0) H 07/03/19 12:35 Basophils % 1.1 % (0.0-2.0) 07/03/19 12:35 Sodium 132 mEq/L (136-145) L 07/03/19 12:35 Potassium 4.5 mEq/L (3.5-5.1) 07/03/19 12:35 Chloride 102 mEq/L (98-107) 07/03/19 12:35 Carbon Dioxide 26.4 mEq/L (21.0-31.0) 07/03/19 12:35 Anion Gap 8.1 (7.0-16.0) 07/03/19 12:35 BUN 27 mg/dL (7-25) H 07/03/19 12:35 Creatinine 1.1 mg/dL (0.7-1.3) 07/03/19 12:35 Est GFR ( Amer) > 60.0 ml/min (>90) 07/03/19 12:35 Est GFR (Non-Af Amer) > 60.0 ml/min 07/03/19 12:35 BUN/Creatinine Ratio 24.5 07/03/19 12:35 Glucose 96 mg/dL (70-105) 07/03/19 12:35 Calcium 9.7 mg/dL (8.6-10.3) 07/03/19 12:35 Total Bilirubin 0.4 mg/dL (0.3-1.0) 07/03/19 12:35 AST 16 U/L (13-39) 07/03/19 12:35 ALT 13 U/L (7-52) 07/03/19 12:35 Alkaline Phosphatase 38 U/L (34-104) 07/03/19 12:35 Total Protein 6.4 gm/dL (6.0-8.3) 07/03/19 12:35 Albumin 3.6 gm/dL (4.2-5.5) L 07/03/19 12:35 Globulin 2.8 gm/dL 07/03/19 12:35 Albumin/Globulin Ratio 1.3 (1.0-1.8) 07/03/19 12:35 Triglycerides 86 mg/dL (<150) 07/03/19 12:35 Cholesterol 144 mg/dL (<200) 07/03/19 12:35 LDL Cholesterol Direct 81 mg/dL (75-193) 07/03/19 12:35 HDL Cholesterol 50 mg/dL (23-92) 07/03/19 12:35 [place] 1.18 mmol/L (0.5-1.0) H 07/03/19 12:35 - Physical Exam Vitals and I&O: Vital Signs Temp 98.2 F 07/13/19 06:33 Pulse 73 07/13/19 06:33 Resp 18 07/13/19 06:33 BP 107/60 07/13/19 06:33 Pulse Ox 97 07/13/19 06:33 Intake & Output 07/12/19 07/13/19 07/13/19 18:59 06:59 18:59 Intake Total 1200 120 Balance 1200 120 Weight (lbs) 45.359 kg 54.431 kg Intake: Oral 1200 120 Other: # Voids 3 # Bowel Movements 2 1 Weight Source Estimated Bedscale Active Medications: Current Medications Acetaminophen (Tylenol) 650 mg PO Q6H PRN PRN Reason: Pain / Temp above 100 Stop: 09/01/19 14:24 Al Hydrox/Mg Hydrox/Simethicone (Maalox) 30 ml PO Q4H PRN PRN Reason: GI DISTRESS Stop: 09/01/19 14:24 Ascorbic Acid (Vitamin C) 500 mg PO DAILY [facility] Stop: 09/02/19 08:59 Last Admin: 07/13/19 09:03 Dose: 500 mg Clonidine HCl (Cupozgts-Wdl-2) 1 patch TD QTUE [facility] Stop: 09/02/19 08:59 Last Admin: 07/11/19 09:57 Dose: Not Given Docusate Sodium (Colace) 100 mg PO DAILY [facility] Stop: 09/02/19 08:59 Last Admin: 07/13/19 09:03 Dose: 100 mg Ferrous Sulfate (Iron) 325 mg PO DAILY [facility] Stop: 09/02/19 08:59 Last Admin: 07/13/19 09:03 Dose: 325 mg Haloperidol Lactate (Haldol) 3 mg PO TID [facility] Stop: 09/03/19 20:59 Last Admin: 07/13/19 09:03 Dose: 3 mg Lorazepam (Ativan) 0.5 mg PO Q6H PRN; Protocol PRN Reason: Agitation Stop: 09/01/19 14:24 Last Admin: 07/09/19 23:08 Dose: 0.5 mg Magnesium Hydroxide (Milk Of Magnesia) 30 ml PO HS PRN PRN Reason: Constipation Stop: 09/01/19 14:24 Multivitamins/Vitamin C (Theragran) 1 tab PO DAILY [facility] Stop: 09/02/19 08:59 Last Admin: 07/13/19 09:03 Dose: 1 tab Trazodone HCl (Desyrel) 50 mg PO HS [facility]; Protocol Stop: 09/01/19 20:59 Last Admin: 07/12/19 20:52 Dose: 50 mg General: demented, thin, appears older HEENT: NC/AT, PERRLA, EOMI Neck: Supple, No JVD, No thyromegaly, No LAD Lungs: CTAB Cardiovascular: RRR, Normal S1, Normal S2 Abdomen: soft, non-tender, thin, non-distended, positive bowel sound Extremities: excoriation, contracture Internal Medicine Assmt/Plan - Assessment Assessment: ASSESSMENT AND PLAN: 1. Hypertension. 2. Dehydration. 3. Renal insufficiency. 4. Thin built. 5. History of agitation and psych disorder. 6. Anemia. 7. Hyponatremia. 8. Low albumin. - Plan Plan: PLAN: Continue oxygen, bronchodilator treatments. We will provide the patient with adequate support with antihypertensive medication. We will monitor hemoglobin and hematocrit. We will review meds We will continue monitoring the patient closely. will refer to PT for eval Nutritional Asmnt/Malnutr-PDOC - Dietary Evaluation Malnutrition Findings (Please click <Entered> for more info): Nutritional Asmnt/Malnutrition Start: 07/04/19 11: 29 Text: Status: Complete Freq: Protocol: Document 07/04/19 11:29 CARLOS EDUARDO (Rec: 07/04/19 11:33 CARLOS EDUARDO [email or web address]) Nutritional Asmnt/Malnutrition Patient General Information Nutritional Screening High Risk Diagnosis Psychosis Pertinent Medical Hx/Surgical Hx Psych Disorder, oral ulcer disease, COPD Subjective Information Pt is a 59-year-old male admitted on 07/03 d/t aggressiveness. RNZhang, stated Pt ate well this morning, 70% meal and seemed to be in a good mood. As Pt is underweight and has refused meals d/t psychosis in previous hospital visits, adding Ensure Enlive TID to encourage weight gain trending towards IBW. HT: 510 WT: 110 LB (50 kg) BMI: 15.79 (Underweight) GI: Not noted BM: Not Noted I/O: Not Noted Skin: Not noted Jhonathan: 17 Diet Order: Cardiac, chopped Estimated Energy Needs: ( Underweight, CBW) 4773-0538 kcals (30-35 kcals/ kg) 50-60g Pro (1.0-1.2 g/kg) 2333-5758 ml (35-40 ml/kg) Current Diet Order/ Nutrition Support Cardiac, chopped Pertinent Medications Maalox (PRN), Vitamin C, Colace, Ferrous Sulfate, MOM ( PRN), Theregran Pertinent Labs 07/03: Hgb/Hct 11.6/35.0, Na 132, BUN/Cr 27/1.1, Alb 3.6 Nutritional Hx/Data Height 1.78 m Height (Calculated Centimeters) 177.8 Current Weight (lbs) 49.895 kg Weight (Calculated Kilograms) 49.9 Weight (Calculated Grams) 60956.2 [place] Body Weight 166 LB (75.45kg) % [place] Body Weight 66 Body Mass Index (BMI) 15.7 Weight Status Underweight GI Symptoms Last BM Not noted Skin Integrity/Comment: Jhonathan: 17 Current %PO Fair (50-74%) Estimated Nutritional Goals BEE in Kcals: Using Current wt Calories/Kcals/Kg 30-35 Kcals Calculated 7561-9191 Protein: Using Current wt Protein g/k.0-1.2 Protein Calculated 50-60 Fluid: ml 6941-3789 ml (35-40 ml/kg) Nutritional Problem 1. Problem Problem Underweight Etiology r/t psychosis Signs/Symptoms: aeb Pt past behavior of refusing meals for consecutive days. Malnutrition Related to Morbid Obesity Malnutrition related to morbid obesity No Intervention/Recommendation Comments 1. Continue with Cardiac, chopped diet as ordered. 2. Add Ensure Enlive TID ( completed). Expected Outcomes/Goals Expected Outcomes/Goals 1. Continue with Cardiac, chopped diet as ordered. 2. Add Ensure Enlive TID ( completed). 3. PO intake to meet 75% of nutritional needs. 4. Monitor PO intake, wt, nutrition related labs, and skin integrity. 5. F/U as moderate risk in 3-5 days, 07/06-07/08
--- NOTE | 2019-07-13 19:43 | Progress Notes ---
DATE: 07/13/2019 SUBJECTIVE: The patient confused, rambling, poorly oriented, still yelling at me get away, get away, very paranoid. Seems to be doing better, calmer, is mostly withdrawn, keeps to self. Seems to be to some extent approaching his baseline. He is coming from [facility]. ASSESSMENT: The patient likely approaching baseline, generally calmer, more cooperative. We will continue to monitor. [facility]# [id number]
[2019-07-14] MEDS: Haloperidol Lactate Oral sol. 2 mg/mL Udc PO SCH ×3 (08:53→20:48)
[2019-07-14] MEDS: Ferrous Sulfate 325 MG TAB PO SCH (08:55)
[2019-07-14] MEDS: Multivitamin Tab PO SCH (08:56)
--- NOTE | 2019-07-14 12:22 | Internal Medicine Prog Note ---
Internal Medicine Subjective - Subjective Patient seen and examined:: with staff, chart reviewed Patient is:: awake, verbal, interactive, agitated, confused Per staff patient has:: no adverse event, no episodes of fall, poor appetite, confused, tolerating meds Internal Medicine Objective - Results Result Diagrams: 07/03/19 12:35 07/03/19 12:35 Recent Labs: Laboratory Last Values WBC 10.3 Th/cmm (4.8-10.8) 07/03/19 12:35 RBC 4.00 Mil/cmm (4.30-5.70) L 07/03/19 12:35 Hgb 11.6 gm/dL (12-16) L 07/03/19 12:35 Hct 35.0 % (41.0-60) L 07/03/19 12:35 MCV 87.6 fl (80-99) 07/03/19 12:35 MCH 28.9 pg (26.0-30.0) 07/03/19 12:35 MCHC Differential 33.0 pg (28.0-36.0) 07/03/19 12:35 RDW 15.7 % (11.5-20.0) 07/03/19 12:35 Plt Count 335 Th/cmm (150-400) 07/03/19 12:35 MPV 8.2 fl 07/03/19 12:35 Neutrophils % 63.9 % (40.0-80.0) 07/03/19 12:35 Lymphocytes % 21.7 % (20.0-50.0) 07/03/19 12:35 Monocytes % 7.4 % (2.0-10.0) 07/03/19 12:35 Eosinophils % 5.9 % (0.0-5.0) H 07/03/19 12:35 Basophils % 1.1 % (0.0-2.0) 07/03/19 12:35 Sodium 132 mEq/L (136-145) L 07/03/19 12:35 Potassium 4.5 mEq/L (3.5-5.1) 07/03/19 12:35 Chloride 102 mEq/L (98-107) 07/03/19 12:35 Carbon Dioxide 26.4 mEq/L (21.0-31.0) 07/03/19 12:35 Anion Gap 8.1 (7.0-16.0) 07/03/19 12:35 BUN 27 mg/dL (7-25) H 07/03/19 12:35 Creatinine 1.1 mg/dL (0.7-1.3) 07/03/19 12:35 Est GFR ( Amer) > 60.0 ml/min (>90) 07/03/19 12:35 Est GFR (Non-Af Amer) > 60.0 ml/min 07/03/19 12:35 BUN/Creatinine Ratio 24.5 07/03/19 12:35 Glucose 96 mg/dL (70-105) 07/03/19 12:35 Calcium 9.7 mg/dL (8.6-10.3) 07/03/19 12:35 Total Bilirubin 0.4 mg/dL (0.3-1.0) 07/03/19 12:35 AST 16 U/L (13-39) 07/03/19 12:35 ALT 13 U/L (7-52) 07/03/19 12:35 Alkaline Phosphatase 38 U/L (34-104) 07/03/19 12:35 Total Protein 6.4 gm/dL (6.0-8.3) 07/03/19 12:35 Albumin 3.6 gm/dL (4.2-5.5) L 07/03/19 12:35 Globulin 2.8 gm/dL 07/03/19 12:35 Albumin/Globulin Ratio 1.3 (1.0-1.8) 07/03/19 12:35 Triglycerides 86 mg/dL (<150) 07/03/19 12:35 Cholesterol 144 mg/dL (<200) 07/03/19 12:35 LDL Cholesterol Direct 81 mg/dL (75-193) 07/03/19 12:35 HDL Cholesterol 50 mg/dL (23-92) 07/03/19 12:35 [place] 1.18 mmol/L (0.5-1.0) H 07/03/19 12:35 - Physical Exam Vitals and I&O: Vital Signs Temp 97.6 F 07/13/19 15:28 Pulse 91 07/13/19 15:28 Resp 20 07/13/19 15:28 BP 105/75 07/13/19 15:28 Pulse Ox 97 07/13/19 15:28 Intake & Output 07/13/19 07/14/19 07/14/19 18:59 06:59 18:59 Intake Total 1000 Balance 1000 Weight (lbs) 54.431 kg Intake: Oral 1000 Other: # Voids 4 # Bowel Movements 1 Weight Source Bedscale Active Medications: Current Medications Acetaminophen (Tylenol) 650 mg PO Q6H PRN PRN Reason: Pain / Temp above 100 Stop: 09/01/19 14:24 Al Hydrox/Mg Hydrox/Simethicone (Maalox) 30 ml PO Q4H PRN PRN Reason: GI DISTRESS Stop: 09/01/19 14:24 Ascorbic Acid (Vitamin C) 500 mg PO DAILY [facility] Stop: 09/02/19 08:59 Last Admin: 07/14/19 08:55 Dose: 500 mg Clonidine HCl (Xdfnvkgn-Cwn-4) 1 patch TD QTUE [facility] Stop: 09/02/19 08:59 Last Admin: 07/11/19 09:57 Dose: Not Given Docusate Sodium (Colace) 100 mg PO DAILY [facility] Stop: 09/02/19 08:59 Last Admin: 07/14/19 08:55 Dose: 100 mg Ferrous Sulfate (Iron) 325 mg PO DAILY [facility] Stop: 09/02/19 08:59 Last Admin: 07/14/19 08:55 Dose: 325 mg Haloperidol Lactate (Haldol) 3 mg PO TID [facility] Stop: 09/03/19 20:59 Last Admin: 07/14/19 08:53 Dose: 3 mg Lorazepam (Ativan) 0.5 mg PO Q6H PRN; Protocol PRN Reason: Agitation Stop: 09/01/19 14:24 Last Admin: 07/09/19 23:08 Dose: 0.5 mg Magnesium Hydroxide (Milk Of Magnesia) 30 ml PO HS PRN PRN Reason: Constipation Stop: 09/01/19 14:24 Multivitamins/Vitamin C (Theragran) 1 tab PO DAILY [facility] Stop: 09/02/19 08:59 Last Admin: 07/14/19 08:56 Dose: 1 tab Trazodone HCl (Desyrel) 50 mg PO HS [facility]; Protocol Stop: 09/01/19 20:59 Last Admin: 07/13/19 20:22 Dose: 50 mg General: demented, thin, appears older HEENT: NC/AT, PERRLA, EOMI Neck: Supple, No JVD, No thyromegaly, No LAD Lungs: CTAB Cardiovascular: RRR, Normal S1, Normal S2 Abdomen: soft, non-tender, thin, non-distended, positive bowel sound Extremities: excoriation, contracture Internal Medicine Assmt/Plan - Assessment Assessment: ASSESSMENT AND PLAN: 1. Hypertension. 2. Dehydration. 3. Renal insufficiency. 4. Thin built. 5. History of agitation and psych disorder. 6. Anemia. 7. Hyponatremia. 8. Low albumin. - Plan Plan: PLAN: Continue oxygen, bronchodilator treatments. We will provide the patient with adequate support with antihypertensive medication. We will monitor hemoglobin and hematocrit. We will review meds We will continue monitoring the patient closely. will refer to PT for eval Nutritional Asmnt/Malnutr-PDOC - Dietary Evaluation Malnutrition Findings (Please click <Entered> for more info): Nutritional Asmnt/Malnutrition Start: 07/04/19 11: 29 Text: Status: Complete Freq: Protocol: Document 07/04/19 11:29 CARLOS EDUARDO (Rec: 07/04/19 11:33 CARLOS EDUARDO GREEN-[email or web address]) Nutritional Asmnt/Malnutrition Patient General Information Nutritional Screening High Risk Diagnosis Psychosis Pertinent Medical Hx/Surgical Hx Psych Disorder, oral ulcer disease, COPD Subjective Information Pt is a 59-year-old male admitted on 07/03 d/t aggressiveness. RN, Zhang, stated Pt ate well this morning, 70% meal and seemed to be in a good mood. As Pt is underweight and has refused meals d/t psychosis in previous hospital visits, adding Ensure Enlive TID to encourage weight gain trending towards IBW. HT: 510 WT: 110 LB (50 kg) BMI: 15.79 (Underweight) GI: Not noted BM: Not Noted I/O: Not Noted Skin: Not noted Jhonathan: 17 Diet Order: Cardiac, chopped Estimated Energy Needs: ( Underweight, CBW) 1850-0121 kcals (30-35 kcals/ kg) 50-60g Pro (1.0-1.2 g/kg) 6415-8794 ml (35-40 ml/kg) Current Diet Order/ Nutrition Support Cardiac, chopped Pertinent Medications Maalox (PRN), Vitamin C, Colace, Ferrous Sulfate, MOM ( PRN), Theregran Pertinent Labs 07/03: Hgb/Hct 11.6/35.0, Na 132, BUN/Cr 27/1.1, Alb 3.6 Nutritional Hx/Data Height 1.78 m Height (Calculated Centimeters) 177.8 Current Weight (lbs) 49.895 kg Weight (Calculated Kilograms) 49.9 Weight (Calculated Grams) 10394.2 [place] Body Weight 166 LB (75.45kg) % [place] Body Weight 66 Body Mass Index (BMI) 15.7 Weight Status Underweight GI Symptoms Last BM Not noted Skin Integrity/Comment: Jhonathan: 17 Current %PO Fair (50-74%) Estimated Nutritional Goals BEE in Kcals: Using Current wt Calories/Kcals/Kg 30-35 Kcals Calculated 7367-7728 Protein: Using Current wt Protein g/k.0-1.2 Protein Calculated 50-60 Fluid: ml 2414-3779 ml (35-40 ml/kg) Nutritional Problem 1. Problem Problem Underweight Etiology r/t psychosis Signs/Symptoms: aeb Pt past behavior of refusing meals for consecutive days. Malnutrition Related to Morbid Obesity Malnutrition related to morbid obesity No Intervention/Recommendation Comments 1. Continue with Cardiac, chopped diet as ordered. 2. Add Ensure Enlive TID ( completed). Expected Outcomes/Goals Expected Outcomes/Goals 1. Continue with Cardiac, chopped diet as ordered. 2. Add Ensure Enlive TID ( completed). 3. PO intake to meet 75% of nutritional needs. 4. Monitor PO intake, wt, nutrition related labs, and skin integrity. 5. F/U as moderate risk in 3-5 days, 07/06-07/08
--- NOTE | 2019-07-14 22:47 | Progress Notes ---
DATE: 07/14/2019 SUBJECTIVE: The patient in the hospital, still impulsive, yelling at me and cursing, "no, no, no," very paranoid, delusional, thinks we are trying to harm him. He will just basically say "hello, how are you?" Mostly keeps to self, withdrawn, ongoing symptoms, concerns for psychotic symptoms, acting out behaviors, impulsive, unpredictable, but generally calmer. Staff noting improvement, taking his medications. Medications were noted. Vitals were reviewed. PLAN: We will continue to monitor, titrate and adjust medications, doing better with the higher dose of Haldol. [facility]# [id number]
[2019-07-15] MEDS: Ferrous Sulfate 325 MG TAB PO SCH (08:47)
[2019-07-15] MEDS: Haloperidol Lactate Oral sol. 2 mg/mL Udc PO SCH ×3 (08:48→21:07)
[2019-07-15] MEDS: Multivitamin Tab PO SCH (08:48)
--- NOTE | 2019-07-15 13:26 | Internal Medicine Prog Note ---
Internal Medicine Subjective - Subjective Patient seen and examined:: with staff, chart reviewed Patient is:: awake, verbal, interactive, agitated, confused Per staff patient has:: no adverse event, no episodes of fall, poor appetite, confused, tolerating meds Internal Medicine Objective - Results Result Diagrams: 07/03/19 12:35 07/03/19 12:35 Recent Labs: Laboratory Last Values WBC 10.3 Th/cmm (4.8-10.8) 07/03/19 12:35 RBC 4.00 Mil/cmm (4.30-5.70) L 07/03/19 12:35 Hgb 11.6 gm/dL (12-16) L 07/03/19 12:35 Hct 35.0 % (41.0-60) L 07/03/19 12:35 MCV 87.6 fl (80-99) 07/03/19 12:35 MCH 28.9 pg (26.0-30.0) 07/03/19 12:35 MCHC Differential 33.0 pg (28.0-36.0) 07/03/19 12:35 RDW 15.7 % (11.5-20.0) 07/03/19 12:35 Plt Count 335 Th/cmm (150-400) 07/03/19 12:35 MPV 8.2 fl 07/03/19 12:35 Neutrophils % 63.9 % (40.0-80.0) 07/03/19 12:35 Lymphocytes % 21.7 % (20.0-50.0) 07/03/19 12:35 Monocytes % 7.4 % (2.0-10.0) 07/03/19 12:35 Eosinophils % 5.9 % (0.0-5.0) H 07/03/19 12:35 Basophils % 1.1 % (0.0-2.0) 07/03/19 12:35 Sodium 132 mEq/L (136-145) L 07/03/19 12:35 Potassium 4.5 mEq/L (3.5-5.1) 07/03/19 12:35 Chloride 102 mEq/L (98-107) 07/03/19 12:35 Carbon Dioxide 26.4 mEq/L (21.0-31.0) 07/03/19 12:35 Anion Gap 8.1 (7.0-16.0) 07/03/19 12:35 BUN 27 mg/dL (7-25) H 07/03/19 12:35 Creatinine 1.1 mg/dL (0.7-1.3) 07/03/19 12:35 Est GFR ( Amer) > 60.0 ml/min (>90) 07/03/19 12:35 Est GFR (Non-Af Amer) > 60.0 ml/min 07/03/19 12:35 BUN/Creatinine Ratio 24.5 07/03/19 12:35 Glucose 96 mg/dL (70-105) 07/03/19 12:35 Calcium 9.7 mg/dL (8.6-10.3) 07/03/19 12:35 Total Bilirubin 0.4 mg/dL (0.3-1.0) 07/03/19 12:35 AST 16 U/L (13-39) 07/03/19 12:35 ALT 13 U/L (7-52) 07/03/19 12:35 Alkaline Phosphatase 38 U/L (34-104) 07/03/19 12:35 Total Protein 6.4 gm/dL (6.0-8.3) 07/03/19 12:35 Albumin 3.6 gm/dL (4.2-5.5) L 07/03/19 12:35 Globulin 2.8 gm/dL 07/03/19 12:35 Albumin/Globulin Ratio 1.3 (1.0-1.8) 07/03/19 12:35 Triglycerides 86 mg/dL (<150) 07/03/19 12:35 Cholesterol 144 mg/dL (<200) 07/03/19 12:35 LDL Cholesterol Direct 81 mg/dL (75-193) 07/03/19 12:35 HDL Cholesterol 50 mg/dL (23-92) 07/03/19 12:35 [place] 1.18 mmol/L (0.5-1.0) H 07/03/19 12:35 - Physical Exam Vitals and I&O: Vital Signs Temp 97.8 F 07/14/19 20:00 Pulse 89 07/14/19 20:00 Resp 20 07/14/19 20:00 BP 116/73 07/14/19 20:00 Pulse Ox 99 07/14/19 20:00 Intake & Output 07/14/19 07/15/19 07/15/19 18:59 06:59 18:59 Intake Total 1000 Balance 1000 Weight (lbs) 56.155 kg Intake: Oral 1000 Other: # Voids 4 # Bowel Movements 1 Weight Source Bedscale Active Medications: Current Medications Acetaminophen (Tylenol) 650 mg PO Q6H PRN PRN Reason: Pain / Temp above 100 Stop: 09/01/19 14:24 Al Hydrox/Mg Hydrox/Simethicone (Maalox) 30 ml PO Q4H PRN PRN Reason: GI DISTRESS Stop: 09/01/19 14:24 Ascorbic Acid (Vitamin C) 500 mg PO DAILY [facility] Stop: 09/02/19 08:59 Last Admin: 07/15/19 08:48 Dose: 500 mg Clonidine HCl (Ssiriway-Wbz-5) 1 patch TD QTUE [facility] Stop: 09/02/19 08:59 Last Admin: 07/11/19 09:57 Dose: Not Given Docusate Sodium (Colace) 100 mg PO DAILY [facility] Stop: 09/02/19 08:59 Last Admin: 07/15/19 08:48 Dose: 100 mg Ferrous Sulfate (Iron) 325 mg PO DAILY [facility] Stop: 09/02/19 08:59 Last Admin: 07/15/19 08:47 Dose: 325 mg Haloperidol Lactate (Haldol) 3 mg PO TID [facility] Stop: 09/03/19 20:59 Last Admin: 07/15/19 08:48 Dose: 3 mg Lorazepam (Ativan) 0.5 mg PO Q6H PRN; Protocol PRN Reason: Agitation Stop: 09/01/19 14:24 Last Admin: 07/09/19 23:08 Dose: 0.5 mg Magnesium Hydroxide (Milk Of Magnesia) 30 ml PO HS PRN PRN Reason: Constipation Stop: 09/01/19 14:24 Multivitamins/Vitamin C (Theragran) 1 tab PO DAILY [facility] Stop: 09/02/19 08:59 Last Admin: 07/15/19 08:48 Dose: 1 tab Trazodone HCl (Desyrel) 50 mg PO HS [facility]; Protocol Stop: 09/01/19 20:59 Last Admin: 07/14/19 20:48 Dose: 50 mg General: demented, thin, appears older HEENT: NC/AT, PERRLA, EOMI Neck: Supple, No JVD, No thyromegaly, No LAD Lungs: CTAB Cardiovascular: RRR, Normal S1, Normal S2 Abdomen: soft, non-tender, thin, non-distended, positive bowel sound Extremities: excoriation, contracture Internal Medicine Assmt/Plan - Assessment Assessment: ASSESSMENT AND PLAN: 1. Hypertension. 2. Dehydration. 3. Renal insufficiency. 4. Thin built. 5. History of agitation and psych disorder. 6. Anemia. 7. Hyponatremia. 8. Low albumin. - Plan Plan: PLAN: Continue oxygen, bronchodilator treatments. We will provide the patient with adequate support with antihypertensive medication. We will monitor hemoglobin and hematocrit. We will review meds We will continue monitoring the patient closely. will refer to PT for eval Nutritional Asmnt/Malnutr-PDOC - Dietary Evaluation Malnutrition Findings (Please click <Entered> for more info): Nutritional Asmnt/Malnutrition Start: 07/04/19 11: 29 Text: Status: Complete Freq: Protocol: Document 07/04/19 11:29 CARLOS EDUARDO (Rec: 07/04/19 11:33 CARLOS EDUARDO GREEN-[email or web address]) Nutritional Asmnt/Malnutrition Patient General Information Nutritional Screening High Risk Diagnosis Psychosis Pertinent Medical Hx/Surgical Hx Psych Disorder, oral ulcer disease, COPD Subjective Information Pt is a 59-year-old male admitted on 07/03 d/t aggressiveness. RN, Zhang, stated Pt ate well this morning, 70% meal and seemed to be in a good mood. As Pt is underweight and has refused meals d/t psychosis in previous hospital visits, adding Ensure Enlive TID to encourage weight gain trending towards IBW. HT: 510 WT: 110 LB (50 kg) BMI: 15.79 (Underweight) GI: Not noted BM: Not Noted I/O: Not Noted Skin: Not noted Jhonathan: 17 Diet Order: Cardiac, chopped Estimated Energy Needs: ( Underweight, CBW) 1251-2965 kcals (30-35 kcals/ kg) 50-60g Pro (1.0-1.2 g/kg) 4909-6914 ml (35-40 ml/kg) Current Diet Order/ Nutrition Support Cardiac, chopped Pertinent Medications Maalox (PRN), Vitamin C, Colace, Ferrous Sulfate, MOM ( PRN), Theregran Pertinent Labs 07/03: Hgb/Hct 11.6/35.0, Na 132, BUN/Cr 27/1.1, Alb 3.6 Nutritional Hx/Data Height 1.78 m Height (Calculated Centimeters) 177.8 Current Weight (lbs) 49.895 kg Weight (Calculated Kilograms) 49.9 Weight (Calculated Grams) 89675.2 Max Body Weight 166 LB (75.45kg) % Max Body Weight 66 Body Mass Index (BMI) 15.7 Weight Status Underweight GI Symptoms Last BM Not noted Skin Integrity/Comment: Jhonathan: 17 Current %PO Fair (50-74%) Estimated Nutritional Goals BEE in Kcals: Using Current wt Calories/Kcals/Kg 30-35 Kcals Calculated 1478-4236 Protein: Using Current wt Protein g/k.0-1.2 Protein Calculated 50-60 Fluid: ml 6338-0316 ml (35-40 ml/kg) Nutritional Problem 1. Problem Problem Underweight Etiology r/t psychosis Signs/Symptoms: aeb Pt past behavior of refusing meals for consecutive days. Malnutrition Related to Morbid Obesity Malnutrition related to morbid obesity No Intervention/Recommendation Comments 1. Continue with Cardiac, chopped diet as ordered. 2. Add Ensure Enlive TID ( completed). Expected Outcomes/Goals Expected Outcomes/Goals 1. Continue with Cardiac, chopped diet as ordered. 2. Add Ensure Enlive TID ( completed). 3. PO intake to meet 75% of nutritional needs. 4. Monitor PO intake, wt, nutrition related labs, and skin integrity. 5. F/U as moderate risk in 3-5 days, 07/06-07/08
--- NOTE | 2019-07-15 19:31 | Progress Notes ---
DATE: 07/15/[address] Carlson. IDENTIFYING DATA: A 59-year-old male brought in here from the ER, who presented irritable, agitated with a history of schizophrenia and paranoia. Nursing staff reported the patient continues to be isolative, withdrawn, intermittently yelling. As early as yesterday, Dr. Carlson documented that the patient continues to yell "no, no, no," extremely paranoid. They were trying to harm him. Today, on [id number] evaluation, mostly disengaged with a blunted and flat affect, poor historian, does not give much information besides hello, how are you? Due to the patient's disorganized state and poor historian and limited verbal, unable to get more information from him. MENTAL STATUS EXAMINATION: Isolated, withdrawn, disengaged. Reconciliation medication reviewed, haloperidol 3 mg p.o. t.i.d., trazodone 50 mg at nighttime as needed. No side effects. ASSESSMENT AND PLAN: History of schizoaffective disorder, tolerating the current medication regimen without complications. We will continue monitoring and evaluating. JOB# [id number]
[2019-07-16] MEDS: Ferrous Sulfate 325 MG TAB PO SCH (08:38)
[2019-07-16] MEDS: Haloperidol Lactate Oral sol. 2 mg/mL Udc PO SCH ×3 (08:38→21:53)
[2019-07-16] MEDS: Multivitamin Tab PO SCH (08:39)
--- NOTE | 2019-07-16 14:08 | Internal Medicine Prog Note ---
Internal Medicine Subjective - Subjective Patient seen and examined:: with staff, chart reviewed Patient is:: awake, verbal, interactive, agitated, confused Per staff patient has:: no adverse event, no episodes of fall, poor appetite, confused, tolerating meds Internal Medicine Objective - Results Result Diagrams: 07/03/19 12:35 07/03/19 12:35 Recent Labs: Laboratory Last Values WBC 10.3 Th/cmm (4.8-10.8) 07/03/19 12:35 RBC 4.00 Mil/cmm (4.30-5.70) L 07/03/19 12:35 Hgb 11.6 gm/dL (12-16) L 07/03/19 12:35 Hct 35.0 % (41.0-60) L 07/03/19 12:35 MCV 87.6 fl (80-99) 07/03/19 12:35 MCH 28.9 pg (26.0-30.0) 07/03/19 12:35 MCHC Differential 33.0 pg (28.0-36.0) 07/03/19 12:35 RDW 15.7 % (11.5-20.0) 07/03/19 12:35 Plt Count 335 Th/cmm (150-400) 07/03/19 12:35 MPV 8.2 fl 07/03/19 12:35 Neutrophils % 63.9 % (40.0-80.0) 07/03/19 12:35 Lymphocytes % 21.7 % (20.0-50.0) 07/03/19 12:35 Monocytes % 7.4 % (2.0-10.0) 07/03/19 12:35 Eosinophils % 5.9 % (0.0-5.0) H 07/03/19 12:35 Basophils % 1.1 % (0.0-2.0) 07/03/19 12:35 Sodium 132 mEq/L (136-145) L 07/03/19 12:35 Potassium 4.5 mEq/L (3.5-5.1) 07/03/19 12:35 Chloride 102 mEq/L (98-107) 07/03/19 12:35 Carbon Dioxide 26.4 mEq/L (21.0-31.0) 07/03/19 12:35 Anion Gap 8.1 (7.0-16.0) 07/03/19 12:35 BUN 27 mg/dL (7-25) H 07/03/19 12:35 Creatinine 1.1 mg/dL (0.7-1.3) 07/03/19 12:35 Est GFR ( Amer) > 60.0 ml/min (>90) 07/03/19 12:35 Est GFR (Non-Af Amer) > 60.0 ml/min 07/03/19 12:35 BUN/Creatinine Ratio 24.5 07/03/19 12:35 Glucose 96 mg/dL (70-105) 07/03/19 12:35 Calcium 9.7 mg/dL (8.6-10.3) 07/03/19 12:35 Total Bilirubin 0.4 mg/dL (0.3-1.0) 07/03/19 12:35 AST 16 U/L (13-39) 07/03/19 12:35 ALT 13 U/L (7-52) 07/03/19 12:35 Alkaline Phosphatase 38 U/L (34-104) 07/03/19 12:35 Total Protein 6.4 gm/dL (6.0-8.3) 07/03/19 12:35 Albumin 3.6 gm/dL (4.2-5.5) L 07/03/19 12:35 Globulin 2.8 gm/dL 07/03/19 12:35 Albumin/Globulin Ratio 1.3 (1.0-1.8) 07/03/19 12:35 Triglycerides 86 mg/dL (<150) 07/03/19 12:35 Cholesterol 144 mg/dL (<200) 07/03/19 12:35 LDL Cholesterol Direct 81 mg/dL (75-193) 07/03/19 12:35 HDL Cholesterol 50 mg/dL (23-92) 07/03/19 12:35 [place] 1.18 mmol/L (0.5-1.0) H 07/03/19 12:35 - Physical Exam Vitals and I&O: Vital Signs Temp 98 F 07/16/19 06:46 Pulse 78 07/16/19 06:46 Resp 20 07/16/19 06:46 BP 111/60 07/16/19 06:46 Pulse Ox 98 07/16/19 06:46 Intake & Output 07/15/19 07/16/19 07/16/19 18:59 06:59 18:59 Intake Total 1400 120 Balance 1400 120 Weight (lbs) 56.245 kg 56.245 kg Intake: Oral 1400 120 Other: # Voids 4 3 # Bowel Movements 0 Weight Source Estimated Estimated Active Medications: Current Medications Acetaminophen (Tylenol) 650 mg PO Q6H PRN PRN Reason: Pain / Temp above 100 Stop: 09/01/19 14:24 Al Hydrox/Mg Hydrox/Simethicone (Maalox) 30 ml PO Q4H PRN PRN Reason: GI DISTRESS Stop: 09/01/19 14:24 Ascorbic Acid (Vitamin C) 500 mg PO DAILY [facility] Stop: 09/02/19 08:59 Last Admin: 07/16/19 08:39 Dose: 500 mg Clonidine HCl ([id number]-Dmq-9) 1 patch TD QTUE [facility] Stop: 09/02/19 08:59 Last Admin: 07/11/19 09:57 Dose: Not Given Docusate Sodium (Colace) 100 mg PO DAILY [facility] Stop: 09/02/19 08:59 Last Admin: 07/16/19 08:39 Dose: 100 mg Ferrous Sulfate (Iron) 325 mg PO DAILY [facility] Stop: 09/02/19 08:59 Last Admin: 07/16/19 08:38 Dose: 325 mg Haloperidol Lactate (Haldol) 3 mg PO TID [facility] Stop: 09/03/19 20:59 Last Admin: 07/16/19 08:38 Dose: 3 mg Lorazepam (Ativan) 0.5 mg PO Q6H PRN; Protocol PRN Reason: Agitation Stop: 09/01/19 14:24 Last Admin: 07/09/19 23:08 Dose: 0.5 mg Magnesium Hydroxide (Milk Of Magnesia) 30 ml PO HS PRN PRN Reason: Constipation Stop: 09/01/19 14:24 Multivitamins/Vitamin C (Theragran) 1 tab PO DAILY [facility] Stop: 09/02/19 08:59 Last Admin: 07/16/19 08:39 Dose: 1 tab Trazodone HCl (Desyrel) 50 mg PO HS [facility]; Protocol Stop: 09/01/19 20:59 Last Admin: 07/15/19 21:07 Dose: 50 mg General: demented, thin, appears older HEENT: NC/AT, PERRLA, EOMI Neck: Supple, No JVD, No thyromegaly, No LAD Lungs: CTAB Cardiovascular: RRR, Normal S1, Normal S2 Abdomen: soft, non-tender, thin, non-distended, positive bowel sound Extremities: excoriation, contracture Internal Medicine Assmt/Plan - Assessment Assessment: ASSESSMENT AND PLAN: 1. Hypertension. 2. Dehydration. 3. Renal insufficiency. 4. Thin built. 5. History of agitation and psych disorder. 6. Anemia. 7. Hyponatremia. 8. Low albumin. - Plan Plan: PLAN: Continue oxygen, bronchodilator treatments. We will provide the patient with adequate support with antihypertensive medication. We will monitor hemoglobin and hematocrit. We will review meds We will continue monitoring the patient closely. will refer to PT for eval Nutritional Asmnt/Malnutr-PDOC - Dietary Evaluation Malnutrition Findings (Please click <Entered> for more info): Nutritional Asmnt/Malnutrition Start: 07/04/19 11: 29 Text: Status: Complete Freq: Protocol: Document 07/04/19 11:29 CARLOS EDUARDO (Rec: 07/04/19 11:33 CARLOS EDUARDO PETER-[id number]) Nutritional Asmnt/Malnutrition Patient General Information Nutritional Screening High Risk Diagnosis Psychosis Pertinent Medical Hx/Surgical Hx Psych Disorder, oral ulcer disease, COPD Subjective Information Pt is a 59-year-old male admitted on 07/03 d/t aggressiveness. RN, Zhang, stated Pt ate well this morning, 70% meal and seemed to be in a good mood. As Pt is underweight and has refused meals d/t psychosis in previous hospital visits, adding Ensure Enlive TID to encourage weight gain trending towards IBW. HT: 510 WT: 110 LB (50 kg) BMI: 15.79 (Underweight) GI: Not noted BM: Not Noted I/O: Not Noted Skin: Not noted Jhonathan: 17 Diet Order: Cardiac, chopped Estimated Energy Needs: ( Underweight, CBW) 4079-5332 kcals (30-35 kcals/ kg) 50-60g Pro (1.0-1.2 g/kg) 8269-0548 ml (35-40 ml/kg) Current Diet Order/ Nutrition Support Cardiac, chopped Pertinent Medications Maalox (PRN), Vitamin C, Colace, Ferrous Sulfate, MOM ( PRN), Theregran Pertinent Labs 07/03: Hgb/Hct 11.6/35.0, Na 132, BUN/Cr 27/1.1, Alb 3.6 Nutritional Hx/Data Height 1.78 m Height (Calculated Centimeters) 177.8 Current Weight (lbs) 49.895 kg Weight (Calculated Kilograms) 49.9 Weight (Calculated Grams) 14690.2 [place] Body Weight 166 LB (75.45kg) % [place] Body Weight 66 Body Mass Index (BMI) 15.7 Weight Status Underweight GI Symptoms Last BM Not noted Skin Integrity/Comment: Jhonathan: 17 Current %PO Fair (50-74%) Estimated Nutritional Goals BEE in Kcals: Using Current wt Calories/Kcals/Kg 30-35 Kcals Calculated 9816-4699 Protein: Using Current wt Protein g/k.0-1.2 Protein Calculated 50-60 Fluid: ml 0440-7541 ml (35-40 ml/kg) Nutritional Problem 1. Problem Problem Underweight Etiology r/t psychosis Signs/Symptoms: aeb Pt past behavior of refusing meals for consecutive days. Malnutrition Related to Morbid Obesity Malnutrition related to morbid obesity No Intervention/Recommendation Comments 1. Continue with Cardiac, chopped diet as ordered. 2. Add Ensure Enlive TID ( completed). Expected Outcomes/Goals Expected Outcomes/Goals 1. Continue with Cardiac, chopped diet as ordered. 2. Add Ensure Enlive TID ( completed). 3. PO intake to meet 75% of nutritional needs. 4. Monitor PO intake, wt, nutrition related labs, and skin integrity. 5. F/U as moderate risk in 3-5 days, 07/06-07/08
--- NOTE | 2019-07-16 20:19 | Progress Notes ---
DATE: 07/16/[address] Carlson. Today on [id number]-hass evaluation, upon approach, his first comments are "I don't want to get involved" and redirect multiple times and even attempted to validate his emotions, he becomes easily anxious, just reporting that he does not want to get involved and backs away from the interview. MENTAL STATUS EXAMINATION: Perseverate, disengaged, suspicious. ASSESSMENT AND PLAN: History of schizoaffective disorder, tolerating the current medication regimens as he continues to ruminate and perseverate. JOB# [id number]
[2019-07-17] MEDS: Ferrous Sulfate 325 MG TAB PO SCH (08:27)
[2019-07-17] MEDS: Haloperidol Lactate Oral sol. 2 mg/mL Udc PO SCH ×2 (08:27→13:34)
[2019-07-17] MEDS: Multivitamin Tab PO SCH (08:27)
--- NOTE | 2019-07-17 12:30 | Internal Medicine Prog Note ---
Internal Medicine Subjective - Subjective Patient seen and examined:: with staff, chart reviewed Patient is:: awake, verbal, interactive, agitated, confused Per staff patient has:: no adverse event, no episodes of fall, poor appetite, confused, tolerating meds Internal Medicine Objective - Results Result Diagrams: 07/03/19 12:35 07/03/19 12:35 Recent Labs: Laboratory Last Values WBC 10.3 Th/cmm (4.8-10.8) 07/03/19 12:35 RBC 4.00 Mil/cmm (4.30-5.70) L 07/03/19 12:35 Hgb 11.6 gm/dL (12-16) L 07/03/19 12:35 Hct 35.0 % (41.0-60) L 07/03/19 12:35 MCV 87.6 fl (80-99) 07/03/19 12:35 MCH 28.9 pg (26.0-30.0) 07/03/19 12:35 MCHC Differential 33.0 pg (28.0-36.0) 07/03/19 12:35 RDW 15.7 % (11.5-20.0) 07/03/19 12:35 Plt Count 335 Th/cmm (150-400) 07/03/19 12:35 MPV 8.2 fl 07/03/19 12:35 Neutrophils % 63.9 % (40.0-80.0) 07/03/19 12:35 Lymphocytes % 21.7 % (20.0-50.0) 07/03/19 12:35 Monocytes % 7.4 % (2.0-10.0) 07/03/19 12:35 Eosinophils % 5.9 % (0.0-5.0) H 07/03/19 12:35 Basophils % 1.1 % (0.0-2.0) 07/03/19 12:35 Sodium 132 mEq/L (136-145) L 07/03/19 12:35 Potassium 4.5 mEq/L (3.5-5.1) 07/03/19 12:35 Chloride 102 mEq/L (98-107) 07/03/19 12:35 Carbon Dioxide 26.4 mEq/L (21.0-31.0) 07/03/19 12:35 Anion Gap 8.1 (7.0-16.0) 07/03/19 12:35 BUN 27 mg/dL (7-25) H 07/03/19 12:35 Creatinine 1.1 mg/dL (0.7-1.3) 07/03/19 12:35 Est GFR ( Amer) > 60.0 ml/min (>90) 07/03/19 12:35 Est GFR (Non-Af Amer) > 60.0 ml/min 07/03/19 12:35 BUN/Creatinine Ratio 24.5 07/03/19 12:35 Glucose 96 mg/dL (70-105) 07/03/19 12:35 Calcium 9.7 mg/dL (8.6-10.3) 07/03/19 12:35 Total Bilirubin 0.4 mg/dL (0.3-1.0) 07/03/19 12:35 AST 16 U/L (13-39) 07/03/19 12:35 ALT 13 U/L (7-52) 07/03/19 12:35 Alkaline Phosphatase 38 U/L (34-104) 07/03/19 12:35 Total Protein 6.4 gm/dL (6.0-8.3) 07/03/19 12:35 Albumin 3.6 gm/dL (4.2-5.5) L 07/03/19 12:35 Globulin 2.8 gm/dL 07/03/19 12:35 Albumin/Globulin Ratio 1.3 (1.0-1.8) 07/03/19 12:35 Triglycerides 86 mg/dL (<150) 07/03/19 12:35 Cholesterol 144 mg/dL (<200) 07/03/19 12:35 LDL Cholesterol Direct 81 mg/dL (75-193) 07/03/19 12:35 HDL Cholesterol 50 mg/dL (23-92) 07/03/19 12:35 [place] 1.18 mmol/L (0.5-1.0) H 07/03/19 12:35 - Physical Exam Vitals and I&O: Vital Signs Temp 97.3 F 07/17/19 06:44 Pulse 74 07/17/19 06:44 Resp 20 07/17/19 06:44 BP 106/69 07/17/19 06:44 Pulse Ox 98 07/17/19 06:44 Intake & Output 07/16/19 07/17/19 07/17/19 18:59 06:59 18:59 Intake Total 1600 120 Balance 1600 120 Weight (lbs) 55.338 kg 55.338 kg Intake: Oral 1600 120 Other: # Voids 5 3 # Bowel Movements 1 2 Weight Source Estimated Estimated Active Medications: Current Medications Acetaminophen (Tylenol) 650 mg PO Q6H PRN PRN Reason: Pain / Temp above 100 Stop: 09/01/19 14:24 Al Hydrox/Mg Hydrox/Simethicone (Maalox) 30 ml PO Q4H PRN PRN Reason: GI DISTRESS Stop: 09/01/19 14:24 Ascorbic Acid (Vitamin C) 500 mg PO DAILY [facility] Stop: 09/02/19 08:59 Last Admin: 07/17/19 08:27 Dose: 500 mg Clonidine HCl (Gnqaxwto-Qkx-5) 1 patch TD QTUE [facility] Stop: 09/02/19 08:59 Last Admin: 07/11/19 09:57 Dose: Not Given Docusate Sodium (Colace) 100 mg PO DAILY [facility] Stop: 09/02/19 08:59 Last Admin: 07/17/19 08:27 Dose: 100 mg Ferrous Sulfate (Iron) 325 mg PO DAILY [facility] Stop: 09/02/19 08:59 Last Admin: 07/17/19 08:27 Dose: 325 mg Haloperidol Lactate (Haldol) 3 mg PO TID [facility] Stop: 09/03/19 20:59 Last Admin: 07/17/19 08:27 Dose: 3 mg Lorazepam (Ativan) 0.5 mg PO Q6H PRN; Protocol PRN Reason: Agitation Stop: 09/01/19 14:24 Last Admin: 07/09/19 23:08 Dose: 0.5 mg Magnesium Hydroxide (Milk Of Magnesia) 30 ml PO HS PRN PRN Reason: Constipation Stop: 09/01/19 14:24 Multivitamins/Vitamin C (Theragran) 1 tab PO DAILY [facility] Stop: 09/02/19 08:59 Last Admin: 07/17/19 08:27 Dose: 1 tab Trazodone HCl (Desyrel) 50 mg PO HS [facility]; Protocol Stop: 09/01/19 20:59 Last Admin: 07/16/19 21:53 Dose: 50 mg General: demented, thin, appears older HEENT: NC/AT, PERRLA, EOMI Neck: Supple, No JVD, No thyromegaly, No LAD Lungs: CTAB Cardiovascular: RRR, Normal S1, Normal S2 Abdomen: soft, non-tender, thin, non-distended, positive bowel sound Extremities: excoriation, contracture Internal Medicine Assmt/Plan - Assessment Assessment: ASSESSMENT AND PLAN: 1. Hypertension. 2. Dehydration. 3. Renal insufficiency. 4. Thin built. 5. History of agitation and psych disorder. 6. Anemia. 7. Hyponatremia. 8. Low albumin. - Plan Plan: PLAN: Continue oxygen, bronchodilator treatments. We will provide the patient with adequate support with antihypertensive medication. We will monitor hemoglobin and hematocrit. We will review meds We will continue monitoring the patient closely. will refer to PT for eval Nutritional Asmnt/Malnutr-PDOC - Dietary Evaluation Malnutrition Findings (Please click <Entered> for more info): Nutritional Asmnt/Malnutrition Start: 07/04/19 11: 29 Text: Status: Complete Freq: Protocol: Document 07/04/19 11:29 CARLOS EDUARDO (Rec: 07/04/19 11:33 CARLOS EDUARDO PETER-[id number]) Nutritional Asmnt/Malnutrition Patient General Information Nutritional Screening High Risk Diagnosis Psychosis Pertinent Medical Hx/Surgical Hx Psych Disorder, oral ulcer disease, COPD Subjective Information Pt is a 59-year-old male admitted on 07/03 d/t aggressiveness. RNZhang, stated Pt ate well this morning, 70% meal and seemed to be in a good mood. As Pt is underweight and has refused meals d/t psychosis in previous hospital visits, adding Ensure Enlive TID to encourage weight gain trending towards IBW. HT: 510 WT: 110 LB (50 kg) BMI: 15.79 (Underweight) GI: Not noted BM: Not Noted I/O: Not Noted Skin: Not noted Jhonathan: 17 Diet Order: Cardiac, chopped Estimated Energy Needs: ( Underweight, CBW) 9425-9949 kcals (30-35 kcals/ kg) 50-60g Pro (1.0-1.2 g/kg) 3646-0011 ml (35-40 ml/kg) Current Diet Order/ Nutrition Support Cardiac, chopped Pertinent Medications Maalox (PRN), Vitamin C, Colace, Ferrous Sulfate, MOM ( PRN), Theregran Pertinent Labs 07/03: Hgb/Hct 11.6/35.0, Na 132, BUN/Cr 27/1.1, Alb 3.6 Nutritional Hx/Data Height 1.78 m Height (Calculated Centimeters) 177.8 Current Weight (lbs) 49.895 kg Weight (Calculated Kilograms) 49.9 Weight (Calculated Grams) 04170.2 [place] Body Weight 166 LB (75.45kg) % [place] Body Weight 66 Body Mass Index (BMI) 15.7 Weight Status Underweight GI Symptoms Last BM Not noted Skin Integrity/Comment: Jhonathan: 17 Current %PO Fair (50-74%) Estimated Nutritional Goals BEE in Kcals: Using Current wt Calories/Kcals/Kg 30-35 Kcals Calculated 0013-5849 Protein: Using Current wt Protein g/k.0-1.2 Protein Calculated 50-60 Fluid: ml 8086-6915 ml (35-40 ml/kg) Nutritional Problem 1. Problem Problem Underweight Etiology r/t psychosis Signs/Symptoms: aeb Pt past behavior of refusing meals for consecutive days. Malnutrition Related to Morbid Obesity Malnutrition related to morbid obesity No Intervention/Recommendation Comments 1. Continue with Cardiac, chopped diet as ordered. 2. Add Ensure Enlive TID ( completed). Expected Outcomes/Goals Expected Outcomes/Goals 1. Continue with Cardiac, chopped diet as ordered. 2. Add Ensure Enlive TID ( completed). 3. PO intake to meet 75% of nutritional needs. 4. Monitor PO intake, wt, nutrition related labs, and skin integrity. 5. F/U as moderate risk in 3-5 days, 07/06-07/08
--- NOTE | 2019-07-17 22:05 | Discharge Summary ---
DATE OF DISCHARGE: 07/17/2019 HISTORY OF PRESENT ILLNESS: A 59-year-old male, well known to this clinician, coming from a long-term, unruly, refusing labs, concerns for lithium toxicity, agitated, telling me to go away, cursing, yelling. PAST PSYCHIATRIC HISTORY: Multiple admissions, long history of mental illness. SOCIAL HISTORY: Stays at a long-term. MEDICATIONS: Noted. PROVISIONAL DIAGNOSIS: Schizophrenia, rule out schizoaffective. MEDICAL: Please see full H and P. HOSPITAL COURSE: After initial assessment, the patient was started on medications, which were titrated and adjusted. Haldol dosage increased. Over the course of treatment, he was calmer, more cooperative, still remained confused, odd, telling me to go away and stating he is "going to leave" and find his own way, totally out of touch with reality, perseverative, ruminative. However, toward the latter end of treatment, he was calm, not combative, likely at his baseline. Tolerant of treatment. No EPS. Staff noting improvement and he was sent home back to the long-term. CONDITION UPON DISCHARGE: Improved, calm, generally more cooperative, odd ideations, confused, disoriented. No SI, no HI, no overt psychosis. Better impulse control. PROVISIONAL DIAGNOSIS: Schizophrenia, rule out schizoaffective. PAST MEDICAL HISTORY: Please see full H and P. PROGNOSIS: The patient follows up with outpatient mental health services and remains compliant with treatment. Prognosis will improve, otherwise guarded. [facility]# [id number]
== END 2019-07-17 19:15 | DRG 885 ==
LOC: ER 11:49 → MSI 14:46 → GERO 14:47
PROVIDERS: ADMIT Psychiatry & Neurology Psychiatry; ATTEND Psychiatry & Neurology Psychiatry
DX: F25.9 Schizoaffective disorder, unspecified (principal); E87.1 Hypo-osmolality and hyponatremia; I10 Essential (primary) hypertension; E86.0 Dehydration; F29 Unspecified psychosis not due to a substance or known physiological condition; N28.9 Disorder of kidney and ureter, unspecified; E88.09 Other disorders of plasma-protein metabolism, not elsewhere classified; D64.9 Anemia, unspecified; Z59.0 Homelessness
CPT/HCPCS: 36415-UA; 80053-TC; 80061-TC; 80178-TC; 83036-90; 85025-TC; 90732; 97530; X3904; Z7610